=== PATIENT | male | born 1975 | race Caucasian/White ===

== ENCOUNTER 2016-09-28 19:44 | Emergency (ER) | payer OTHER ==
[2016-09-28 23:34] VITALS: BP 138/76
--- NOTE | 2016-09-29 00:30 | ED ---
Jose Jeff Karl, scribed for Raphael Burt MD on 09/28/16 at 2020 . Altered Mental Status - HPI Summary HPI Summary: Pt is a 41 y/o male BIBA that presents to the ED c/o an altered mental status. Pt reported that he "didn't feel right" earlier and felt like he was "about to pass out and drop to the ground." Pt stated he "doesn't feel right, a little lightheaded." Pt also reported that he did not eat anything all day and has been drinking since this morning. Per nursing note, "pt arrives via EMS with complaint of knee pain, for ems, the original complaint was missing the bus to [place], maybe a seizure coming on, maybe chest pain developing, and then left knee pain at a 6/10." Hx: alcohol abuse. - History Of Current Complaint Chief Complaint: EDGeneral Stated Complaint: KNEE PAIN Time Seen by Provider: 09/28/16 20:07 Hx Obtained From: Patient, EMS Onset/Duration: Still Present, Gradually Timing: Constant Aggravating Factor(s): Nothing Alleviating Factor(s): Nothing Associated Signs And Symptoms: Positive: Dizziness - lightheadedness Related History: Seizure - Allergies/Home Medications Allergies/Adverse Reactions: Allergies Allergy/AdvReac Type Severity Reaction Status Date / Time No Known Allergies Allergy Verified 06/13/16 18:48 PMH/Surg Hx/FS Hx/Imm Hx Endocrine/Hematology History: Reports: Hx Anticoagulant Therapy - Xarelto 20mg daily Denies: Hx Diabetes, Hx Thyroid Disease Cardiovascular History: Reports: Hx Hypertension Denies: Hx Pacemaker/ICD Respiratory History: Denies: Hx Asthma, Hx Chronic Obstructive Pulmonary Disease (COPD) History: Denies: Hx Renal Disease Neurological History: Reports: Hx Seizures - not taking med "I can't afford them " Denies: Hx Dementia Psychiatric History: Reports: Hx of Violent Episodes Against Others, Hx Substance Abuse - alcoholism Denies: Hx Eating Disorder - Surgical History Surgery Procedure, Year, and Place: knee surgery as a child Infectious Disease History: No Infectious Disease History: Denies: Hx Hepatitis, Hx Human Immunodeficiency Virus (HIV), Hx of Known/ Suspected MRSA, Hx Known/Suspected VRSA, History Other Infectious Disease, Traveled Outside the [place] in Last 30 Days - Family History Known Family History: Positive: Diabetes, Other - alcohol abuse - father - Social History Alcohol Use: Daily Alcohol Amount: 5-6 24oz beers daily Substance Use Type: Reports: None Hx Tobacco Use: Yes Smoking Status (MU): Former Smoker Review of Systems Constitutional: Negative Eyes: Negative ENT: Negative Cardiovascular: Negative Respiratory: Negative Gastrointestinal: Negative Genitourinary: Negative Positive: Arthralgia - left knee pain Skin: Negative Neurological: Other - lightheadedness Psychological: Normal All Other Systems Reviewed And Are Negative: Yes Physical Exam Triage Information Reviewed: Yes Vital Signs On Initial Exam: Initial Vitals Temp Pulse Resp BP Pulse Ox 98.0 F 75 18 109/69 95 09/28/16 20:04 09/28/16 20:04 09/28/16 20:04 09/28/16 20:04 09/28/16 20:04 Vital Signs Reviewed: Yes Appearance: Positive: Well-Appearing, No Pain Distress Skin: Positive: Warm, Skin Color Reflects Adequate Perfusion, Dry Head/Face: Positive: Normal Head/Face Inspection Eyes: Positive: Normal ENT: Positive: Normal ENT inspection Neck: Positive: Supple, Nontender Respiratory/Lung Sounds: Positive: Clear to Auscultation, Breath Sounds Present Cardiovascular: Positive: RRR Abdomen Description: Positive: Nontender, Soft Bowel Sounds: Positive: Present Musculoskeletal: Positive: Normal Neurological: Positive: Normal Psychiatric: Positive: Other - EtOH intoxication Diagnostics - Vital Signs Vital Signs Temp Pulse Resp BP Pulse Ox 09/28/16 20:04 98.0 F 75 18 109/69 95 - Laboratory Lab Statement: Any lab studies that have been ordered have been reviewed, and results considered in the medical decision making process. Altered Mental Statu Course/Dx - Course Course Of Treatment: Mr. Tran admitted to drinking ETOH all day without eayting and feeling dizzy and lightheaded. He had a couple sandwiches here and rested and felt much improved. He hasw presented this way before. - Diagnoses Discharge Diagnoses: Alcohol intoxication Discharge - Discharge Plan Condition: Stable Disposition: HOME Patient Education Materials: Alcohol Intoxication (ED), Abuse of Alcohol (ED) Referrals: Cirilo Barton MD [Primary Care Provider] - Additional Instructions: Please follow up with your primary care provider. Return to the emergency department for changing or worsening symptoms. The documentation as recorded by the Jose campbell Karl accurately reflects the service I personally performed and the decisions made by me, Raphael Burt MD.
== END 2016-09-28 23:33 | disposition home or self-care (01) ==
LOC: ED 19:44
DX: M25.562 Pain in left knee (principal); Z87.891 Personal history of nicotine dependence; R42 Dizziness and giddiness; F10.129 Alcohol abuse with intoxication, unspecified
CPT/HCPCS: 99281

== ENCOUNTER 2016-10-13 13:11 | Emergency (ER) | payer OTHER ==
[2016-10-13] MEDS ORDERED: Aspirin Low Dose CHEW TAB* 81 MG PO ONE (13:32)
--- NOTE | 2016-10-13 13:59 | RAD ---
HISTORY: Chest pain COMPARISONS: June 07, 2013 VIEWS:1: Single frontal portable view of the chest at 1:45 PM FINDINGS: LINES AND TUBES: None. CARDIOMEDIASTINAL SILHOUETTE: The cardiomediastinal silhouette is normal for portable technique. PLEURA: The costophrenic angles are sharp. No pleural abnormalities are noted. LUNG PARENCHYMA: The lungs are clear. ABDOMEN: The upper abdomen is clear. There is no subphrenic gas. BONES AND SOFT TISSUES: No bone or soft tissue abnormalities are noted. IMPRESSION: NO ACTIVE CARDIOPULMONARY DISEASE.
[2016-10-13 14:02] LABS: Hematocrit 45 % (42-52); Hemoglobin 15.1 g/dl (14.0-18.0); Mean Corpuscular HGB Conc 34 g/dl (31-36); Mean Corpuscular Hemoglobin 31 pg (27-31); Mean Corpuscular Volume 92 fL (80-94); Mean Platelet Volume 8 um3 (7.4-10.4); Red Blood Count 4.88 10^6/ul (4.0-5.4); Red Cell Distribution Width 13 % (10.5-15); White Blood Count 6.2 10^3/ul (3.5-10.8)
[2016-10-13 14:18] LABS: ALT 48 U/L (7-52); Albumin 3.8 g/dL (3.2-5.2); Alkaline Phosphatase 55 U/L (34-104); BUN/Creatinine Ratio 13.2 (8-20); Blood Urea Nitrogen 7 mg/dL (6-24); CO2 Carbon Dioxide 25 mmol/L (22-32); Calcium 8.4 mg/dL (8.6-10.3); Chloride 106 mmol/L (101-111); Creatine Kinase 141 U/L (10-223); EGFR African American 218.2 (>60); EGFR Non-African American 169.7 (>60); Globulin 3.1 g/dL (2-4); Glucose 105 mg/dL (70-100); Sodium 138 mmol/L (133-145); Total Protein 6.9 g/dL (6.4-8.9)
[2016-10-13 14:21] LABS: AST 48 U/L (13-39); Anion Gap 7 mmol/L (2-11); Potassium 3.5 mmol/L (3.5-5.0)
[2016-10-13 14:22] LABS: Troponin I 0.01 ng/mL (<0.04)
[2016-10-13 14:27] LABS: Alcohol < 10 mg/dL (<10)
[2016-10-13 14:37] LABS: TSH (Thyroid Stimulating Horm) 0.27 mcIU/mL (0.34-5.60)
[2016-10-13] MEDS ORDERED: Famotidine IV* 10 MG/ML 2 ML (20 mg) IV SLOW PU ONE (15:22)
[2016-10-13] MEDS ORDERED: Thiamine IV* 100 MG, Folic Acid IV* 1 MG, Multiple Vitamin IV ADULT* 10 ML in NS 0.9% 1... IV ONE (15:23)
--- NOTE | 2016-10-13 17:11 | ED ---
Berny Jeff Billy, scribed for Kingston Lema MD on 10/13/16 at 1501 . HPI Chest Pain - HPI Summary HPI Summary: Patient is a 41 year-old male coming to [facility] presenting with constant lower sternal and epigastric pain starting at 1130 today. Patient was at rest during onset. He describes "tightness," severity 6/10. Positive dizziness and SOB when he stood up. Denies any nausea or vomiting. Patient is a heavy daily drinker. - History of Current Complaint Chief Complaint: EDChestPainROMI Time Seen by Provider: 10/13/16 13:32 Hx Obtained From: Patient Onset/Duration: Started Hours Ago, Still Present Time of Onset: 11:30 Timing: Constant Initial Severity: Moderate Current Severity: Moderate Pain Intensity: 6 Pain Scale Used: 0-10 Numeric Chest Pain Location: Discrete at: - epigastric, Lower Sternal Character: Tightness Aggravating Factor(s): Exertion - will feel dizzy/SOB Alleviating Factor(s): Nothing Associated Signs and Symptoms: Positive: Dizziness, Shortness of Breath - Additional Pertinent History Primary Care Physician: Dr. Barton at [facility] - Allergy/Home Medications Allergies/Adverse Reactions: Allergies Allergy/AdvReac Type Severity Reaction Status Date / Time No Known Allergies Allergy Verified 10/13/16 14:42 PMH/Surg Hx/FS Hx/Imm Hx Endocrine/Hematology History: Reports: Hx Anticoagulant Therapy - Xarelto 20mg daily Denies: Hx Diabetes, Hx Thyroid Disease Cardiovascular History: Reports: Hx Hypertension Denies: Hx Pacemaker/ICD Respiratory History: Denies: Hx Asthma, Hx Chronic Obstructive Pulmonary Disease (COPD) History: Denies: Hx Renal Disease Neurological History: Reports: Hx Seizures - not taking med "I can't afford them " Denies: Hx Dementia Psychiatric History: Reports: Hx of Violent Episodes Against Others, Hx Substance Abuse - alcoholism Denies: Hx Eating Disorder - Surgical History Surgery Procedure, Year, and Place: knee surgery as a child Infectious Disease History: No Infectious Disease History: Denies: Hx Hepatitis, Hx Human Immunodeficiency Virus (HIV), Hx of Known/ Suspected MRSA, Hx Known/Suspected VRSA, History Other Infectious Disease, Traveled Outside the [place] in Last 30 Days - Family History Known Family History: Positive: Diabetes, Other - alcohol abuse - father - Social History Alcohol Use: Daily Alcohol Amount: 5-6 24oz beers daily Substance Use Type: Reports: None Hx Tobacco Use: Yes Smoking Status (MU): Former Smoker Review of Systems Positive: Chest Pain Positive: Shortness Of Breath Negative: Vomiting, Nausea Neurological: Other - dizziness All Other Systems Reviewed And Are Negative: Yes Physical Exam - Summary Physical Exam Summary: VITAL SIGNS: Reviewed. GENERAL: Patient is an obese male who is lying comfortable in the stretcher. Patient is not in any acute respiratory distress. HEAD AND FACE: No signs of trauma. No ecchymosis, hematomas or skull depressions. No sinus tenderness. EYES: PERRLA, EOMI x 2, No injected conjunctiva, no nystagmus. EARS: Hearing grossly intact. Ear canals and tympanic membranes are within normal limits. MOUTH: Oropharynx within normal limits. NECK: Supple, trachea is midline, no adenopathy, no JVD, no carotid bruit, no c- spine tenderness, neck with full ROM. CHEST: Symmetric, no tenderness at palpation LUNGS: Clear to auscultation bilaterally. No wheezing or crackles. CVS: Regular rate and rhythm, S1 and S2 present, no murmurs or gallops appreciated. ABDOMEN: Soft, non-tender. No signs of distention. No rebound no guarding, and no masses palpated. Bowel sounds are normal. EXTREMITIES: FROM in all major joints, no edema, no cyanosis or clubbing. NEURO: Alert and oriented x 3. No acute neurological deficits. Speech is normal and follows commands. SKIN: Dry and warm Triage Information Reviewed: Yes Vital Signs On Initial Exam: Initial Vitals Temp Pulse Resp BP Pulse Ox 98.8 F 94 18 145/79 98 10/13/16 13:25 10/13/16 13:25 10/13/16 13:25 10/13/16 13:25 10/13/16 13:25 Vital Signs Reviewed: Yes Diagnostics - Vital Signs Vital Signs Temp Pulse Resp BP Pulse Ox 10/13/16 13:25 98.8 F 94 18 145/79 98 - Laboratory Lab Results: Lab Results 10/13/16 10/13/16 10/13/16 Range/Units 13:45 13:45 13:45 WBC 6.2 (3.5-10.8) 10^3/ul RBC 4.88 (4.0-5.4) 10^6/ul Hgb 15.1 (14.0-18.0) g/dl Hct 45 (42-52) % MCV 92 (80-94) fL MCH 31 (27-31) pg MCHC 34 (31-36) g/dl RDW 13 (10.5-15) % Plt Count 145 L (150-450) 10^3/ul MPV 8 (7.4-10.4) um3 Neut % (Auto) 79.1 (38-83) % Lymph % (Auto) 12.4 L (25-47) % [place] % (Auto) 7.6 (1-9) % Eos % (Auto) 0.5 (0-6) % Baso % (Auto) 0.4 (0-2) % Absolute Neuts (auto) 4.9 (1.5-7.7) 10^3/ul Absolute Lymphs (auto) 0.8 L (1.0-4.8) 10^3/ul Absolute Monos (auto) 0.5 (0-0.8) 10^3/ul Absolute Eos (auto) 0 (0-0.6) 10^3/ul Absolute Basos (auto) 0 (0-0.2) 10^3/ul Absolute Nucleated RBC 0 10^3/ul Nucleated RBC % 0 Sodium 138 (133-145) mmol/L Potassium 3.5 (3.5-5.0) mmol/L Chloride 106 (101-111) mmol/L Carbon Dioxide 25 (22-32) mmol/L Anion Gap 7 (2-11) mmol/L BUN 7 (6-24) mg/dL Creatinine 0.53 L (0.67-1.17) mg/dL Est GFR ( Amer) 218.2 (>60) Est GFR (Non-Af Amer) 169.7 (>60) BUN/Creatinine Ratio 13.2 (8-20) Glucose 105 H (70-100) mg/dL Lactic Acid 0.9 (0.5-2.0) mmol/L Calcium 8.4 L (8.6-10.3) mg/dL Magnesium 2.0 (1.9-2.7) mg/dL Total Bilirubin 0.70 (0.2-1.0) mg/dL AST 48 H (13-39) U/L ALT 48 (7-52) U/L Alkaline Phosphatase 55 (34-104) U/L Total Creatine Kinase 141 (10-223) U/L CK-MB (CK-2) 2.2 (0.6-6.3) ng/mL Troponin I 0.01 (<0.04) ng/mL B-Natriuretic Peptide ( - 100) pg/mL Total Protein 6.9 (6.4-8.9) g/dL Albumin 3.8 (3.2-5.2) g/dL Globulin 3.1 (2-4) g/dL Albumin/Globulin Ratio 1.2 (1-3) TSH 0.27 L (0.34-5.60) mcIU/mL Serum Alcohol < 10 (<10) mg/dL 10/13/16 Range/Units 13:45 WBC (3.5-10.8) 10^3/ul RBC (4.0-5.4) 10^6/ul Hgb (14.0-18.0) g/dl Hct (42-52) % MCV (80-94) fL MCH (27-31) pg MCHC (31-36) g/dl RDW (10.5-15) % Plt Count (150-450) 10^3/ul MPV (7.4-10.4) um3 Neut % (Auto) (38-83) % Lymph % (Auto) (25-47) % [place] % (Auto) (1-9) % Eos % (Auto) (0-6) % Baso % (Auto) (0-2) % Absolute Neuts (auto) (1.5-7.7) 10^3/ul Absolute Lymphs (auto) (1.0-4.8) 10^3/ul Absolute Monos (auto) (0-0.8) 10^3/ul Absolute Eos (auto) (0-0.6) 10^3/ul Absolute Basos (auto) (0-0.2) 10^3/ul Absolute Nucleated RBC 10^3/ul Nucleated RBC % Sodium (133-145) mmol/L Potassium (3.5-5.0) mmol/L Chloride (101-111) mmol/L Carbon Dioxide (22-32) mmol/L Anion Gap (2-11) mmol/L BUN (6-24) mg/dL Creatinine (0.67-1.17) mg/dL Est GFR ( Amer) (>60) Est GFR (Non-Af Amer) (>60) BUN/Creatinine Ratio (8-20) Glucose (70-100) mg/dL Lactic Acid (0.5-2.0) mmol/L Calcium (8.6-10.3) mg/dL Magnesium (1.9-2.7) mg/dL Total Bilirubin (0.2-1.0) mg/dL AST (13-39) U/L ALT (7-52) U/L Alkaline Phosphatase (34-104) U/L Total Creatine Kinase (10-223) U/L CK-MB (CK-2) (0.6-6.3) ng/mL Troponin I (<0.04) ng/mL B-Natriuretic Peptide 29 ( - 100) pg/mL Total Protein (6.4-8.9) g/dL Albumin (3.2-5.2) g/dL Globulin (2-4) g/dL Albumin/Globulin Ratio (1-3) TSH (0.34-5.60) mcIU/mL Serum Alcohol (<10) mg/dL Result Diagrams: 10/13/16 13:45 10/13/16 13:45 Lab Statement: Any lab studies that have been ordered have been reviewed, and results considered in the medical decision making process. - Radiology CXR Xray Interpretation: No Acute Changes Radiology Interpretation Completed By: Radiologist - EKG 1329 EKG Interpretation: NSR 88 bpm, no ST elevation Chest Pain Course/Dx - Course Assessment/Plan: Patient is a 41 year-old male coming to [facility] presenting with constant lower sternal and epigastric pain starting at 1130 today. Patient was at rest during onset. He describes "tightness," severity 6/10. Positive dizziness and SOB when he stood up. Denies any nausea or vomiting. Patient is a heavy daily drinker. Bloodwork WNL. Trop #1 is 0.01, and trop #2 after 4 hours is 0.01. CXR shows no acute pathology. EKG shows NSR [address] elevation. EKG is similar to previous EKG done on 09/08/16. In the ER course , pt was given ASA which did not help his pain. Then, he was given Pepcid and his symptoms improved. I have a very low suspicion for acute coronary sx since he has no comorbidities, so he will be discharged home to follow up with PCP. A&Ox3 , hemodynamically stable. - Chest Pain Differential Diagnosis/HQI/PQRI: Acute TX, ACS, Angina, Chest Wall, GI Disease, Lower Respiratory Infection - Diagnoses Provider Diagnoses: Chest pain, Epigastric pain Discharge - Discharge Plan Condition: Stable Disposition: HOME Patient Education Materials: Chest Pain (ED), Epigastric Pain (ED) Referrals: Cirilo Barton MD [Primary Care Provider] - The documentation as recorded by the Berny campbell Billy accurately reflects the service I personally performed and the decisions made by me, Kingston Lema MD.
[2016-10-13 17:35] VITALS: BP 144/76
== END 2016-10-13 17:40 | disposition home or self-care (01) ==
LOC: ED 13:11
DX: R07.9 Chest pain, unspecified (principal); R10.13 Epigastric pain; R42 Dizziness and giddiness; R06.02 Shortness of breath; Z87.891 Personal history of nicotine dependence
CPT/HCPCS: 36415; 71010; 80053; 80320; 82550; 82553; 83605; 83735; 83880; 84443; 84484; 85025; 85610; 85730; 93005; 96365; 99283; A9270-GY; G0480; J3411

== ENCOUNTER 2016-10-16 11:42 | Emergency (ER) | payer OTHER ==
[2016-10-16] MEDS ORDERED: Famotidine IV* 10 MG/ML 2 ML (20 mg) IV ONE (12:06)
[2016-10-16] MEDS ORDERED: NS 0.9% 1000 ML* 2,000 ML IV ONE (12:06)
[2016-10-16 12:14] LABS: Hematocrit 46 % (42-52); Hemoglobin 15.6 g/dl (14.0-18.0); Mean Corpuscular HGB Conc 34 g/dl (31-36); Mean Corpuscular Hemoglobin 31 pg (27-31); Mean Corpuscular Volume 91 fL (80-94); Mean Platelet Volume 8 um3 (7.4-10.4); Red Blood Count 4.99 10^6/ul (4.0-5.4); Red Cell Distribution Width 13 % (10.5-15); White Blood Count 8.3 10^3/ul (3.5-10.8)
[2016-10-16 12:25] LABS: Albumin 4.1 g/dL (3.2-5.2); BUN/Creatinine Ratio 10.7 (8-20); EGFR African American 204.8 (>60); EGFR Non-African American 159.2 (>60); Globulin 3.2 g/dL (2-4); Total Bilirubin 0.5 mg/dL (0.2-1.0); Total Protein 7.3 g/dL (6.4-8.9)
[2016-10-16 12:27] LABS: Troponin I 0.01 ng/mL (<0.04)
--- NOTE | 2016-10-16 12:31 | RAD ---
Indication: Chest pain. History of hypertension and tobacco use. Comparison: October 31, 2016 Technique: Upright AP 1215 hours Report: Accounting for superimposed soft tissues with large body habitus the lungs and pleural spaces are clear. Negative for pneumothorax. Cardiomegaly appears new compared with the recent prior exam. Unremarkable central pulmonary vasculature and mediastinal contours. IMPRESSION: Suggestion of cardiomegaly new compared with the recent exam of October 13, 2016. Correlate with clinical presentation and consider PA chest radiograph for further assessment.
[2016-10-16 12:39] LABS: TSH (Thyroid Stimulating Horm) 0.89 mcIU/mL (0.34-5.60)
--- NOTE | 2016-10-16 12:59 | RAD ---
INDICATION: RIGHT lower extremity pain and edema. COMPARISON: None. TECHNIQUE: Naidu scale, color Doppler, and spectral analysis of the deep veins of the RIGHT lower extremity. Vessel compression, phasicity, and augmentation assessed. REPORT: The RIGHT common femoral, great saphenous, profunda femoral, femoral, popliteal, and posterior tibial veins appear patent. While conspicuity of the peroneal veins is limited flow is demonstrated in the peroneal veins on color Doppler. Patency of the contralateral common femoral vein documented. IMPRESSION: 1. No evidence for above-knee RIGHT lower extremity DVT. 2. Patent paired RIGHT posterior tibial veins. 3. Limited assessment of the paired RIGHT peroneal veins due to poor conspicuity without gross evidence for thrombosis.
[2016-10-16 13:58] LABS: Potassium 3.8 mmol/L (3.5-5.0)
--- NOTE | 2016-10-16 14:47 | ED ---
Thomas Jeff Matthew, scribed for Bryson Reynolds MD on 10/16/16 at 1209 . HPI Chest Pain - HPI Summary HPI Summary: A 40 y/o male presents to the ED by EMS with sudden mid sternal chest pain since 10:30. The pain is rated 6/10 in severity. The pain was described as tightness, and radiated into the left arm. The patient was ambulating when the symptoms began. The patient continues to have mild discomfort. Associated symptoms include SOB and diaphoresis. The patient denies nausea and vomiting. The pain is worsen with movement. He stats that when he leans forwards or backwards his chest "pops". No Hx of a stress test. PMHx includes PE and DVT. The patient is not on a blood thinner and hasn't been on the medication for a couple of weeks. He took aspirin in the ambulance [facility]. The patient admits to drinking this morning. - History of Current Complaint Chief Complaint: EDChestPainROMI Time Seen by Provider: 10/16/16 11:46 Hx Obtained From: Patient Onset/Duration: Started Hours Ago, Atraumatic, Still Present Time of Onset: 10:30 Timing: Constant Initial Severity: Moderate Current Severity: Mild Pain Intensity: 6 Pain Scale Used: 0-10 Numeric Chest Pain Location: Mid Sternal Chest Pain Radiates: Yes Chest Pain Radiates To:: Arm - LT Character: Tightness Aggravating Factor(s): Movement Alleviating Factor(s): Nothing Associated Signs and Symptoms: Positive: Chest Pain, Shortness of Breath, Diaphoresis, Calf Pain/Swelling - RT. Negative: Nausea, Vomiting - Additional Pertinent History Primary Care Physician: Dr. Barton at [facility] - Allergy/Home Medications Allergies/Adverse Reactions: Allergies Allergy/AdvReac Type Severity Reaction Status Date / Time No Known Allergies Allergy Verified 10/13/16 14:42 PMH/Surg Hx/FS Hx/Imm Hx Endocrine/Hematology History: Reports: Hx Anticoagulant Therapy - Xarelto 20mg daily Denies: Hx Diabetes, Hx Thyroid Disease Cardiovascular History: Reports: Hx Hypertension Denies: Hx Pacemaker/ICD Respiratory History: Denies: Hx Asthma, Hx Chronic Obstructive Pulmonary Disease (COPD) History: Denies: Hx Renal Disease Neurological History: Reports: Hx Seizures - not taking med "I can't afford them " Denies: Hx Dementia Psychiatric History: Reports: Hx of Violent Episodes Against Others, Hx Substance Abuse - alcoholism Denies: Hx Eating Disorder - Surgical History Surgery Procedure, Year, and Place: knee surgery as a child Infectious Disease History: No Infectious Disease History: Denies: Hx Hepatitis, Hx Human Immunodeficiency Virus (HIV), Hx of Known/ Suspected MRSA, Hx Known/Suspected VRSA, History Other Infectious Disease, Traveled Outside the [place] in Last 30 Days - Family History Known Family History: Positive: Diabetes, Other - alcohol abuse - father - Social History Alcohol Use: Daily Alcohol Amount: 5-6 24oz beers daily Substance Use Type: Reports: None Hx Tobacco Use: Yes Smoking Status (MU): Former Smoker Review of Systems Positive: Skin Diaphoresis Eyes: Negative Positive: Nasal Discharge Positive: Chest Pain - mid sternal Positive: Shortness Of Breath Negative: Vomiting, Nausea Genitourinary: Negative Positive: Myalgia - right calf pain , Edema - right calf swelling Skin: Negative Neurological: Negative Psychological: Normal All Other Systems Reviewed And Are Negative: Yes Physical Exam - Summary Physical Exam Summary: The patient is obese in no acute distress and in no acute pain. The skin is warm and dry and skin color reflects adequate perfusion. HEENT: The head is normocephalic and atraumatic. The pupils are equal and reactive. The conjunctivae are clear and without drainage. Nares are patent and without drainage. Mouth reveals moist mucous membranes and the throat is without erythema and exudate. The external ears are intact. The ear canals are patent and without drainage. The tympanic membranes are intact. Neck is supple with full range of motion and non-tender. There are no carotid bruits. There is no neck vein distension. Respiratory: Chest has reproducible discomfort. Lungs are clear to auscultation and breath sounds are symmetrical and equal. Cardiovascular: Heart is regular rate and rhythm. There is no murmur or rub auscultated. Pulses are symmetrical and equal. Abdomen: The abdomen is soft and non-tender. There are normal bowel sounds heard in all four quadrants and there is no organomegaly palpated. Musculoskeletal: There is no back pain noted. Extremities are non-tender with full range of motion. There is good capillary refill. The patient has swelling and tenderness of the right calf. Neurological: Patient is alert and oriented to person, place and time. The patient has symmetrical motor strength in all four extremities. Cranial nerves are grossly intact. Deep tendon reflexes are symmetrical and equal in all four extremities. Psychiatric: The patient has an appropriate affect and does not exhibit any anxiety or depression. Triage Information Reviewed: Yes Vital Signs On Initial Exam: Initial Vitals Temp Pulse Resp BP Pulse Ox 98.5 F 87 18 111/62 94 10/16/16 11:43 10/16/16 11:43 10/16/16 11:43 10/16/16 11:43 10/16/16 11:43 Vital Signs Reviewed: Yes Diagnostics - Vital Signs Vital Signs Temp Pulse Resp BP Pulse Ox 10/16/16 11:43 98.5 F 87 18 111/62 94 - Laboratory Lab Results: Lab Results 10/16/16 10/16/16 10/16/16 Range/Units 11:45 11:45 11:45 WBC 8.3 (3.5-10.8) 10^3/ul RBC 4.99 (4.0-5.4) 10^6/ul Hgb 15.6 (14.0-18.0) g/dl Hct 46 (42-52) % MCV 91 (80-94) fL MCH 31 (27-31) pg MCHC 34 (31-36) g/dl RDW 13 (10.5-15) % Plt Count 176 (150-450) 10^3/ul MPV 8 (7.4-10.4) um3 Neut % (Auto) 70.8 (38-83) % Lymph % (Auto) 18.0 L (25-47) % [place] % (Auto) 8.5 (1-9) % Eos % (Auto) 1.6 (0-6) % Baso % (Auto) 1.1 (0-2) % Absolute Neuts (auto) 5.9 (1.5-7.7) 10^3/ul Absolute Lymphs (auto) 1.5 (1.0-4.8) 10^3/ul Absolute Monos (auto) 0.7 (0-0.8) 10^3/ul Absolute Eos (auto) 0.1 (0-0.6) 10^3/ul Absolute Basos (auto) 0.1 (0-0.2) 10^3/ul Absolute Nucleated RBC 0.01 10^3/ul Nucleated RBC % 0.1 INR (Anticoag Therapy) 0.92 (0.89-1.11) Sodium 134 (133-145) mmol/L Potassium 3.8 (3.5-5.0) mmol/L Chloride 104 (101-111) mmol/L Carbon Dioxide 21 L (22-32) mmol/L Anion Gap 9 (2-11) mmol/L BUN 6 (6-24) mg/dL Creatinine 0.56 L (0.67-1.17) mg/dL Est GFR ( Amer) 204.8 (>60) Est GFR (Non-Af Amer) 159.2 (>60) BUN/Creatinine Ratio 10.7 (8-20) Glucose 113 H (70-100) mg/dL Lactic Acid (0.5-2.0) mmol/L Calcium 9.0 (8.6-10.3) mg/dL Magnesium 2.0 (1.9-2.7) mg/dL Total Bilirubin 0.50 (0.2-1.0) mg/dL AST 37 (13-39) U/L ALT 39 (7-52) U/L Alkaline Phosphatase 65 (34-104) U/L Troponin I 0.01 (<0.04) ng/mL B-Natriuretic Peptide ( - 100) pg/mL Total Protein 7.3 (6.4-8.9) g/dL Albumin 4.1 (3.2-5.2) g/dL Globulin 3.2 (2-4) g/dL Albumin/Globulin Ratio 1.3 (1-3) TSH 0.89 (0.34-5.60) mcIU/mL Serum Alcohol 101 H (<10) mg/dL 10/16/16 10/16/16 10/16/16 Range/Units 11:45 11:45 13:45 WBC (3.5-10.8) 10^3/ul RBC (4.0-5.4) 10^6/ul Hgb (14.0-18.0) g/dl Hct (42-52) % MCV (80-94) fL MCH (27-31) pg MCHC (31-36) g/dl RDW (10.5-15) % Plt Count (150-450) 10^3/ul MPV (7.4-10.4) um3 Neut % (Auto) (38-83) % Lymph % (Auto) (25-47) % [place] % (Auto) (1-9) % Eos % (Auto) (0-6) % Baso % (Auto) (0-2) % Absolute Neuts (auto) (1.5-7.7) 10^3/ul Absolute Lymphs (auto) (1.0-4.8) 10^3/ul Absolute Monos (auto) (0-0.8) 10^3/ul Absolute Eos (auto) (0-0.6) 10^3/ul Absolute Basos (auto) (0-0.2) 10^3/ul Absolute Nucleated RBC 10^3/ul Nucleated RBC % INR (Anticoag Therapy) (0.89-1.11) Sodium (133-145) mmol/L Potassium (3.5-5.0) mmol/L Chloride (101-111) mmol/L Carbon Dioxide (22-32) mmol/L Anion Gap (2-11) mmol/L BUN (6-24) mg/dL Creatinine (0.67-1.17) mg/dL Est GFR ( Amer) (>60) Est GFR (Non-Af Amer) (>60) BUN/Creatinine Ratio (8-20) Glucose (70-100) mg/dL Lactic Acid 1.3 (0.5-2.0) mmol/L Calcium (8.6-10.3) mg/dL Magnesium (1.9-2.7) mg/dL Total Bilirubin (0.2-1.0) mg/dL AST (13-39) U/L ALT (7-52) U/L Alkaline Phosphatase (34-104) U/L Troponin I 0.01 (<0.04) ng/mL B-Natriuretic Peptide 23 ( - 100) pg/mL Total Protein (6.4-8.9) g/dL Albumin (3.2-5.2) g/dL Globulin (2-4) g/dL Albumin/Globulin Ratio (1-3) TSH (0.34-5.60) mcIU/mL Serum Alcohol (<10) mg/dL Result Diagrams: 10/16/16 11:45 10/16/16 11:45 Lab Statement: Any lab studies that have been ordered have been reviewed, and results considered in the medical decision making process. - Radiology CXR Xray Interpretation: Positive (See Comments) - IMPRESSION: Suggestion of cardiomegaly new compared with the recent exam of October 13, 2016. Correlate with clinical presentation and consider PA chest radiograph for further assessment. Radiology Interpretation Completed By: Radiologist - Ultrasound No standard instances Ultrasound Interpretation: No Acute Changes - IMPRESSION: 1. No evidence for above-knee RIGHT lower extremity DVT. 2. Patent paired RIGHT posterior tibial veins. 3. Limited assessment of the paired RIGHT peroneal veins due to poor conspicuity without gross evidence for thrombosis. Ultrasound Interpretation Completed By: Radiologist - EKG 11:37 Cardiac Rate: NL - 88 bpm EKG Rhythm: Sinus Rhythm ST Segment: Non-Specific - leads V2, V3 EKG Interpretation: Poor R wave progression; Left-[place] EKG Comparison: No Significant Change - 10/13/16 13:41 Cardiac Rate: Bradycardia - 59 bpm EKG Rhythm: Sinus Bradycardia ST Segment: Non-Specific - in leads V2,V3 EKG Interpretation: Poor R wave progression; Left-[place] EKG Comparison: No Significant Change - 10/13/16 Chest Pain Course/Dx - Course Assessment/Plan: A 40 y/o male presents to the ED by EMS with sudden mid sternal chest pain since 10:30. The pain was described as tightness, and radiated into the left arm. Associated symptoms include SOB and diaphoresis. The patient denies nausea and vomiting. The patient was also seen in the ED on for similar symptoms. Labs were reviewed and the first troponin was 0.01 the second troponin was 0.01. EKG at 11:37 shows NSR at 88 bpm with non- specific ST changes in leads V2, V3, poor r wave progression, and Left-[place] with no change from 10/13/16. EKG at 13:41 shows sinus rhythm at 59 bpm with non- specific ST changes in leads V2,V3, poor r wave progression, and left-axis. US shows no evidence for right leg DVT. CXR shows suggestion of cardiomegaly new compared with the recent exam of October 13, 2016. The patient will be discharged home and follow-up with his PCP. - Chest Pain Differential Diagnosis/HQI/PQRI: Acute DE, ACS, Chest Wall, GI Disease, Other: - dvt, homelessness, acute alcoholic intoxication - Diagnoses Provider Diagnoses: Chest pain, Acute alcohol intoxication Discharge - Discharge Plan Condition: Stable Disposition: HOME Patient Education Materials: Chest Pain (ED), Alcohol Intoxication (ED) Referrals: Cirilo Barton MD [Primary Care Provider] - 2 Days Additional Instructions: Please follow-up with your primary care physician in two days. The documentation as recorded by the Thomas campbell Matthew accurately reflects the service I personally performed and the decisions made by , Bryson Reynolds MD.
[2016-10-16 15:26] VITALS: BP 118/74
== END 2016-10-16 15:27 | disposition home or self-care (01) ==
LOC: ED 11:42
DX: R07.9 Chest pain, unspecified (principal); F10.129 Alcohol abuse with intoxication, unspecified; G40.909 Epilepsy, unspecified, not intractable, without status epilepticus; Z91.14 Patient's other noncompliance with medication regimen; Z79.01 Long term (current) use of anticoagulants; Z86.718 Personal history of other venous thrombosis and embolism; Y90.5 Blood alcohol level of 100-119 mg/100 ml
CPT/HCPCS: 36415; 71010; 80053; 80320; 83605; 83735; 83880; 84443; 84484; 85025; 85610; 93005; 96374; 99283; G0480

== ENCOUNTER 2016-10-30 20:12 | Emergency (ER) | payer OTHER ==
--- NOTE | 2016-10-30 21:53 | RAD ---
HISTORY: Trauma to the right elbow COMPARISONS: None relevant VIEWS: 4, Frontal, lateral, and oblique views of the right elbow FINDINGS: BONE DENSITY: Normal. BONES: There is no acute displaced fracture. There is a small well-corticated bone fragment along the radial ulnar interval which may represent a loose body versus remote avulsion injury. JOINTS: There is no arthropathy. There is no posterior supracondylar fat pad to suggest a joint effusion. ALIGNMENT: There is no dislocation. SOFT TISSUES: Unremarkable. OTHER FINDINGS: None. IMPRESSION: NO ACUTE OSSEOUS INJURY. IF SYMPTOMS PERSIST, RECOMMEND REPEAT IMAGING.
[2016-10-30 22:45] VITALS: BP 101/66
--- NOTE | 2016-10-30 23:10 | ED ---
Upper Extremity Pain - HPI Summary HPI Summary: Patient was moving furniture today when the other person helping him dropped the furniture and it landed on his right elbow. He had immediate pain that did not improve so he came in for evaluation. He is right handed and has only been able to move the elbow "a little". He has taken Tylenol for pain. - History of Current Complaint Chief Complaint: EDExtremityUpper Stated Complaint: RT ARM INJURY Time Seen by Provider: 10/30/16 21:30 Hx Obtained From: Patient Mechanism Of Injury: Blunt Trauma Onset/Duration: Started Hours Ago, Traumatic, Still Present Timing: Constant Severity Initially: Severe Severity Currently: Moderate Pain Location: Elbow Character: Sharp, Aching, Stiffness Aggravating Factor(s): Movement Alleviating Factor(s): Nothing Associated Signs & Symptoms: Positive: Negative Related History: Dominant Hand Right - Allergies/Home Medications Allergies/Adverse Reactions: Allergies Allergy/AdvReac Type Severity Reaction Status Date / Time No Known Allergies Allergy Verified 10/13/16 14:42 PMH/Surg Hx/FS Hx/Imm Hx Endocrine/Hematology History: Reports: Hx Anticoagulant Therapy - Xarelto 20mg daily Denies: Hx Diabetes, Hx Thyroid Disease Cardiovascular History: Reports: Hx Hypertension Denies: Hx Pacemaker/ICD Respiratory History: Denies: Hx Asthma, Hx Chronic Obstructive Pulmonary Disease (COPD) History: Denies: Hx Renal Disease Neurological History: Reports: Hx Seizures - not taking med "I can't afford them " Denies: Hx Dementia Psychiatric History: Reports: Hx of Violent Episodes Against Others, Hx Substance Abuse - alcoholism Denies: Hx Eating Disorder - Surgical History Surgery Procedure, Year, and Place: knee surgery as a child Infectious Disease History: No Infectious Disease History: Denies: Hx Hepatitis, Hx Human Immunodeficiency Virus (HIV), Hx of Known/ Suspected MRSA, Hx Known/Suspected VRSA, History Other Infectious Disease, Traveled Outside the [place] in Last 30 Days - Family History Known Family History: Positive: Diabetes, Other - alcohol abuse - father - Social History Occupation: Unemployed Lives: [facility] Alcohol Use: Daily Alcohol Amount: 5-6 24oz beers daily Substance Use Type: Reports: None Hx Tobacco Use: Yes Smoking Status (MU): Heavy Every Day Tobacco Smoker Cessation Counseling: Patient Advised to Stop Review of Systems Positive: Myalgia, Decreased ROM. Negative: Edema Negative: Bruising Negative: Weakness, Paresthesia, Numbness All Other Systems Reviewed And Are Negative: Yes Physical Exam Triage Information Reviewed: Yes Vital Signs On Initial Exam: Initial Vitals Temp Pulse Resp BP Pulse Ox 98.2 F 80 16 106/68 96 10/30/16 20:16 10/30/16 20:16 10/30/16 20:16 10/30/16 20:16 10/30/16 20:16 Vital Signs Reviewed: Yes Appearance: Positive: Well-Appearing, Pain Distress, Obese Skin: Positive: Warm, Skin Color Reflects Adequate Perfusion, Dry, Soft Head/Face: Positive: Normal Head/Face Inspection Eyes: Positive: EOMI, ROX, Conjunctiva Clear ENT: Positive: Hearing grossly normal Respiratory/Lung Sounds: Positive: Breath Sounds Present Cardiovascular: Positive: RRR Musculoskeletal: Positive: Strength/ROM Intact - FROM right elbow with full pronation/supination, Pain @ - TTP medial condyle. Negative: Edema Right Neurological: Positive: Sensory/Motor Intact, Alert, Oriented to Person Place, Time, NV Bundle Intact Distally Psychiatric: Positive: Affect/Mood Appropriate AVPU Assessment: Alert Diagnostics - Vital Signs Vital Signs Temp Pulse Resp BP Pulse Ox 10/30/16 22:47 98.6 F 82 16 101/66 10/30/16 22:44 98.6 F 82 16 101/66 94 10/30/16 20:16 98.2 F 80 16 106/68 96 - Laboratory Lab Statement: Any lab studies that have been ordered have been reviewed, and results considered in the medical decision making process. - Radiology No standard instances Xray Interpretation: No Acute Changes Radiology Interpretation Completed By: Radiologist Course/Dx - Diagnoses Differential Diagnosis/HQI/PQRI: Positive: Arthritis, Bursitis, Contusion, Fracture (Closed), Hematoma, Strain, Sprain Provider Diagnoses: Contusion of right elbow Discharge - Discharge Plan Condition: Stable Disposition: HOME Patient Education Materials: Arm Pain (ED) Referrals: Cirilo Barton MD [Primary Care Provider] - Additional Instructions: Please wear your sling until you pain improves. Use Tylenol and ice to help with pain and swelling. Follow-up with your regular doctor if your symptoms persist.
== END 2016-10-30 22:47 | disposition home or self-care (01) ==
LOC: ED 20:12
DX: S50.01XA Contusion of right elbow, initial encounter (principal); W22.8XXA Striking against or struck by other objects, initial encounter; Y93.9 Activity, unspecified; Y92.9 Unspecified place or not applicable; Y93.89 Activity, other specified; F17.210 Nicotine dependence, cigarettes, uncomplicated
CPT/HCPCS: 99282

== ENCOUNTER 2016-11-10 03:11 | Emergency (ER) | payer SELFPAY ==
--- NOTE | 2016-11-10 03:43 | ED ---
Gus Jeff Benjamin, scribed for Kenneth Peraza MD on 11/10/16 at 0325 . Shortness of Breath - HPI Summary HPI Summary: 41yo male c/o sudden SOB. Pt also admits having 3-4 drinks today. - History of Current Complaint Chief Complaint: EDShortnessOfBreath Hx Obtained From: Patient Onset/Duration: Sudden Onset, Lasting Hours, Still Present Current Severity: Mild Dyspnea At: Rest Aggrevating Factors: Nothing Alleviating Factors: Nothing Associated Signs & Symptoms: Negative - Allergy/Home Medications Allergies/Adverse Reactions: Allergies Allergy/AdvReac Type Severity Reaction Status Date / Time No Known Allergies Allergy Verified 10/13/16 14:42 PMH/Surg Hx/FS Hx/Imm Hx Endocrine/Hematology History: Reports: Hx Anticoagulant Therapy - Xarelto 20mg daily Denies: Hx Diabetes, Hx Thyroid Disease Cardiovascular History: Reports: Hx Hypertension Denies: Hx Pacemaker/ICD Respiratory History: Denies: Hx Asthma, Hx Chronic Obstructive Pulmonary Disease (COPD) History: Denies: Hx Renal Disease Neurological History: Reports: Hx Seizures - not taking med "I can't afford them " Denies: Hx Dementia Psychiatric History: Reports: Hx of Violent Episodes Against Others, Hx Substance Abuse - alcoholism Denies: Hx Eating Disorder - Surgical History Surgery Procedure, Year, and Place: knee surgery as a child Infectious Disease History: No Infectious Disease History: Denies: Hx Hepatitis, Hx Human Immunodeficiency Virus (HIV), Hx of Known/ Suspected MRSA, Hx Known/Suspected VRSA, History Other Infectious Disease, Traveled Outside the [place] in Last 30 Days - Family History Known Family History: Positive: Diabetes, Other - alcohol abuse - father - Social History Alcohol Use: Daily Alcohol Amount: 5-6 24oz beers daily Substance Use Type: Reports: None Hx Tobacco Use: Yes Smoking Status (MU): Heavy Every Day Tobacco Smoker Review of Systems Constitutional: Negative Eyes: Negative ENT: Negative Cardiovascular: Negative Positive: Shortness Of Breath Gastrointestinal: Negative Genitourinary: Negative Musculoskeletal: Negative Skin: Negative Neurological: Negative Psychological: Normal All Other Systems Reviewed And Are Negative: Yes Physical Exam Triage Information Reviewed: Yes Vital Signs On Initial Exam: Initial Vitals Temp Pulse Resp BP Pulse Ox 98.2 F 79 20 114/70 97 11/10/16 03:15 11/10/16 03:15 11/10/16 03:15 11/10/16 03:15 11/10/16 03:15 Vital Signs Reviewed: Yes Appearance: Positive: No Pain Distress, Obese Skin: Positive: Warm Head/Face: Positive: Normal Head/Face Inspection Eyes: Positive: ROX ENT: Positive: Hearing grossly normal Neck: Positive: Supple Respiratory/Lung Sounds: Positive: Clear to Auscultation, Breath Sounds Present Cardiovascular: Positive: RRR Musculoskeletal: Positive: Strength/ROM Intact Neurological: Positive: Alert, Oriented to Person Place, Time Diagnostics - Vital Signs Vital Signs Temp Pulse Resp BP Pulse Ox 11/10/16 03:15 98.2 F 79 20 114/70 97 - Laboratory Lab Statement: Any lab studies that have been ordered have been reviewed, and results considered in the medical decision making process. - Radiology CXR Xray Interpretation: No Acute Changes Radiology Interpretation Completed By: ED Physician Course/Dx - Diagnoses Provider Diagnoses: Dyspnea, Alcohol abuse with alcohol-induced mood disorder Discharge - Discharge Plan Condition: Stable Disposition: HOME Patient Education Materials: Dyspnea (ED) Referrals: Cirilo Barton MD [Primary Care Provider] - The documentation as recorded by the Gus campbell Benjamin accurately reflects the service I personally performed and the decisions made by , Kenneth Peraza MD.
[2016-11-10 05:17] VITALS: BP 108/79
--- NOTE | 2016-11-10 07:49 | RAD ---
INDICATION: Shortness of breath. COMPARISON: Comparison is made with a prior chest x-ray study from October 16, 2016. TECHNIQUE: Dual-energy PA and lateral views of the chest were obtained. FINDINGS: The heart is within normal limits in size. Mediastinal and hilar contours appear within normal limits. There are minimal linear densities at the right lung base most consistent with atelectasis. The lungs are otherwise clear. No pleural effusion is seen. IMPRESSION: NO EVIDENCE FOR ACUTE FINDING.
== END 2016-11-10 05:15 | disposition home or self-care (01) ==
LOC: ED 03:11
DX: F10.10 Alcohol abuse, uncomplicated (principal); F39 Unspecified mood [affective] disorder; R06.00 Dyspnea, unspecified
CPT/HCPCS: 71020; 99282

== ENCOUNTER 2016-11-26 22:53 | Emergency (ER) | payer SELFPAY ==
[2016-11-26 23:31] VITALS: BP 121/63
[2016-11-26 23:36] LABS: Hematocrit 46 % (42-52); Hemoglobin 15.6 g/dl (14.0-18.0); Mean Corpuscular HGB Conc 34 g/dl (31-36); Mean Corpuscular Hemoglobin 31 pg (27-31); Mean Corpuscular Volume 91 fL (80-94); Mean Platelet Volume 7 um3 (7.4-10.4); Red Blood Count 5.02 10^6/ul (4.0-5.4); Red Cell Distribution Width 13 % (10.5-15); White Blood Count 8.6 10^3/ul (3.5-10.8)
[2016-11-26 23:40] LABS: Add Diff/Slide Review? Slide Review Added; Comments Flag Yes
[2016-11-26 23:51] LABS: ALT 26 U/L (7-52); Alkaline Phosphatase 73 U/L (34-104); BUN/Creatinine Ratio 9.8 (8-20); Blood Urea Nitrogen 6 mg/dL (6-24); CO2 Carbon Dioxide 23 mmol/L (22-32); Calcium 8.9 mg/dL (8.6-10.3); Chloride 103 mmol/L (101-111); EGFR African American 185.5 (>60); EGFR Non-African American 144.3 (>60); Globulin 3.2 g/dL (2-4); Glucose 98 mg/dL (70-100); Sodium 137 mmol/L (133-145); Total Protein 7.2 g/dL (6.4-8.9)
[2016-11-27 00:03] LABS: Acetaminophen < 15 mcg/mL; Alcohol 167 mg/dL (<10); Salicylate < 2.50 mg/dL (<30)
[2016-11-27 00:13] LABS: TSH (Thyroid Stimulating Horm) 1.47 mcIU/mL (0.34-5.60)
[2016-11-27 00:26] LABS: AST 29 U/L (13-39); Anion Gap 11 mmol/L (2-11); Potassium 3.7 mmol/L (3.5-5.0)
--- NOTE | 2016-11-27 09:37 | RAD ---
Indication: Bilateral feet burning sensation for several weeks. Swelling, infection. Comparison: No relevant prior exams available on the [facility]. Technique: AP, lateral, and oblique views of the bilateral feet Report: RIGHT foot: Normal articular alignment. Suggestion of mild soft tissue edema. No subcutaneous emphysema evident. Negative for periosteal reaction, osteolysis, or osteosclerosis. Large dorsal osteophyte at the head/neck of the talus. Accessory os tibialis externum ossicle. Mild osteoarthritis at the first metatarsal phalangeal joint. Healed fractures at the distal diaphysis metaphysis junctions of the tibia and fibula. LEFT foot: Normal articular alignment. Suggestion of mild soft tissue edema. No subcutaneous emphysema evident. Negative for periosteal reaction, osteolysis, or osteosclerosis. Mild osteophytosis at the talocrural joint and first metatarsal phalangeal joint. Negative for fracture. IMPRESSION: Mild bilateral nonfocal soft tissue swelling. No radiographic stigmata of osteomyelitis or acute traumatic injury.
--- NOTE | 2016-11-27 10:52 | CONSULT ---
Consult Consult: Mr. Tran is homeless and has been staying at the custodial at night under ' winter rules'. He came in intoxicated last night after an argument feeling suicidal. He was evaluated by [facility] and they felt he could be released as he felt better after eating, sleeping and sobering. He admits to having wet feet a lot during the recent heavy snow. He has injury to both of his feet from cold immersion and I counseled him that he has to keep his feet warm and dry and to F /U with the Physician Referral Service. He agrees to do that. I don't think that he has frostbite at this point. He says his feet 'crackle and pop' on the bottom when he walks but he is not having pain. He was D/C'd iin stable condition with a diagnosis of immersion foot, alcohol intoxication, and depression.
== END 2016-11-27 10:04 | disposition home or self-care (01) ==
LOC: ED 22:53
DX: T69.029A Immersion foot, unspecified foot, initial encounter (principal); F10.129 Alcohol abuse with intoxication, unspecified; F32.9 Major depressive disorder, single episode, unspecified; X31.XXXA Exposure to excessive natural cold, initial encounter
CPT/HCPCS: 36415; 80053; 80320; 80329; 84443; 85025; 99282; G0480

== ENCOUNTER 2016-12-06 15:56 | Emergency (ER) | payer SELFPAY ==
[2016-12-06 20:54] LABS: Hematocrit 50 % (42-52); Hemoglobin 16.7 g/dl (14.0-18.0); Mean Corpuscular HGB Conc 34 g/dl (31-36); Mean Corpuscular Hemoglobin 31 pg (27-31); Mean Corpuscular Volume 92 fL (80-94); Mean Platelet Volume 7 um3 (7.4-10.4); Red Blood Count 5.39 10^6/ul (4.0-5.4); Red Cell Distribution Width 13 % (10.5-15)
[2016-12-06 21:01] LABS: Add Diff/Slide Review? Manual Diff Added; Comments Flag Yes
[2016-12-06 21:04] LABS: Urine Bacteria Absent (Absent); Urine Bilirubin Negative (Negative); Urine Glucose Negative (Negative); Urine Nitrite Negative (Negative)
[2016-12-06 21:07] LABS: ALT 26 U/L (7-52); AST 40 U/L (13-39); Albumin 4.2 g/dL (3.2-5.2); Alkaline Phosphatase 61 U/L (34-104); Anion Gap 11 mmol/L (2-11); BUN/Creatinine Ratio 11.9 (8-20); Blood Urea Nitrogen 7 mg/dL (6-24); CO2 Carbon Dioxide 25 mmol/L (22-32); Calcium 8.8 mg/dL (8.6-10.3); Chloride 103 mmol/L (101-111); EGFR African American 192.8 (>60); EGFR Non-African American 149.9 (>60); Globulin 3.4 g/dL (2-4); Glucose 85 mg/dL (70-100); Potassium 3.6 mmol/L (3.5-5.0); Sodium 139 mmol/L (133-145); Total Protein 7.6 g/dL (6.4-8.9)
[2016-12-06 21:15] LABS: Benzodiazepine Urine Screen None Detected (None Detect)
[2016-12-06 21:31] LABS: Acetaminophen < 15 mcg/mL; Alcohol 244 mg/dL (<10); Salicylate < 2.50 mg/dL (<30)
[2016-12-06 21:34] LABS: Add Path Review? YES; Immature Granulocytes 1 % (0-9); Neutrophil % 68 % (38-83); RBC Morphology Normal (Normal); Reactive Lymph % 3 % (0-6)
[2016-12-06 21:40] LABS: TSH (Thyroid Stimulating Horm) 0.79 mcIU/mL (0.34-5.60)
[2016-12-07 06:26] VITALS: BP 115/52
--- NOTE | 2016-12-11 07:29 | ED ---
Mary Anne Jeff Anna, scribed for Raphael Burt MD on 12/06/16 at 1630 . HPI Chest Pain - HPI Summary HPI Summary: Patient is a 41 y/o male coming to [facility] presenting with mid-sternal chest pain that began this morning. He does not report taking medication for any medical problems. He normally lives at the [facility], but he was outside for two days. He says he has been drinking a little. He thinks he fell asleep outside. He says he is really cold. - History of Current Complaint Chief Complaint: EDExposureHeatCold Time Seen by Provider: 12/06/16 16:22 Hx Obtained From: Patient - Additional Pertinent History Primary Care Physician: Dr. Barton at [facility] - Allergy/Home Medications Allergies/Adverse Reactions: Allergies Allergy/AdvReac Type Severity Reaction Status Date / Time No Known Allergies Allergy Verified 10/13/16 14:42 PMH/Surg Hx/FS Hx/Imm Hx Endocrine/Hematology History: Reports: Hx Anticoagulant Therapy - Xarelto 20mg daily Denies: Hx Diabetes, Hx Thyroid Disease Cardiovascular History: Reports: Hx Hypertension Denies: Hx Pacemaker/ICD Respiratory History: Denies: Hx Asthma, Hx Chronic Obstructive Pulmonary Disease (COPD) History: Denies: Hx Renal Disease Neurological History: Reports: Hx Seizures - not taking med "I can't afford them " Denies: Hx Dementia Psychiatric History: Reports: Hx of Violent Episodes Against Others, Hx Substance Abuse - alcoholism Denies: Hx Eating Disorder - Surgical History Surgery Procedure, Year, and Place: knee surgery as a child Infectious Disease History: Denies: Hx Hepatitis, Hx Human Immunodeficiency Virus (HIV), Hx of Known/ Suspected MRSA, Hx Known/Suspected VRSA, History Other Infectious Disease - Family History Known Family History: Positive: Diabetes, Other - alcohol abuse - father - Social History Lives: Intermediate - Long-Term - [facility] Alcohol Use: Daily Alcohol Amount: 5-6 24oz beers daily Substance Use Type: Reports: None Hx Tobacco Use: Yes Smoking Status (MU): Light Every Day Tobacco Smoker Review of Systems Positive: Other - cold Positive: Chest Pain All Other Systems Reviewed And Are Negative: Yes Physical Exam Triage Information Reviewed: Yes Vital Signs On Initial Exam: Temp Pulse Resp BP Pulse Ox 98.6 F 69 13 108/65 97 12/06/16 18:11 12/06/16 18:11 12/06/16 18:11 12/06/16 18:11 12/06/16 18:11 Vital Signs Reviewed: Yes Appearance: Positive: Well-Appearing - Pt smells like alcohol., No Pain Distress Skin: Positive: Warm, Skin Color Reflects Adequate Perfusion, Dry Head/Face: Positive: Normal Head/Face Inspection Eyes: Positive: Normal ENT: Positive: Normal ENT inspection Neck: Positive: Supple, Nontender Respiratory/Lung Sounds: Positive: Clear to Auscultation, Breath Sounds Present Cardiovascular: Positive: RRR Abdomen Description: Positive: Nontender, Soft Bowel Sounds: Positive: Present Musculoskeletal: Positive: Normal Neurological: Positive: Normal Psychiatric: Positive: Affect/Mood Appropriate Diagnostics - Vital Signs Vital Signs Temp Pulse Resp BP Pulse Ox 12/07/16 06:24 98.5 F 12/07/16 06:14 70 115/52 94 12/07/16 06:00 82 116/48 94 12/07/16 05:30 85 126/77 94 12/07/16 05:00 88 117/89 95 12/07/16 04:30 86 134/73 92 12/07/16 04:00 82 126/84 93 12/07/16 03:30 91 129/89 93 12/07/16 03:00 88 105/55 92 12/07/16 02:30 94 128/84 93 12/07/16 02:00 87 109/50 93 12/07/16 01:30 95 108/74 92 12/07/16 01:00 97 121/80 93 12/07/16 00:30 88 106/50 90 12/07/16 00:01 100 112/63 90 12/06/16 23:30 107 127/79 91 12/06/16 23:00 99 126/74 94 12/06/16 22:30 92 104/58 90 12/06/16 22:27 95 90 12/06/16 21:00 99.0 F 85 16 121/73 95 12/06/16 19:00 109/61 12/06/16 18:30 77 16 109/75 94 12/06/16 18:11 98.6 F 69 13 108/65 97 12/06/16 18:10 98.6 F 67 13 105/65 95 12/06/16 18:00 71 14 108/65 94 03/28/17 17:30 63 12 108/62 95 12/06/16 17:00 65 12 115/67 93 12/06/16 16:30 76 117/81 89 12/06/16 16:23 76 91 12/06/16 16:21 121/80 12/06/16 16:10 97.7 F 88 18 117/81 94 - Laboratory Lab Results: Lab Results 12/06/16 12/06/16 12/06/16 Range/Units 20:44 20:44 20:49 WBC 8.0 (3.5-10.8) 10^3/ul RBC 5.39 (4.0-5.4) 10^6/ul Hgb 16.7 (14.0-18.0) g/dl Hct 50 (42-52) % MCV 92 (80-94) fL MCH 31 (27-31) pg MCHC 34 (31-36) g/dl RDW 13 (10.5-15) % Plt Count 237 (150-450) 10^3/ul MPV 7 L (7.4-10.4) um3 Immature Gran % (Auto) 1 (0-9) % Absolute Neuts (auto) 5.4 (1.5-7.7) 10^3/ul Absolute Lymphs (auto) 1.9 (1.0-4.8) 10^3/ul Absolute Monos (auto) 0.6 (0-0.8) 10^3/ul Absolute Eos (auto) 0.1 (0-0.6) 10^3/ul Absolute Basos (auto) 0.1 (0-0.2) 10^3/ul Absolute Nucleated RBC 0.01 10^3/ul Neutrophils % 68 (38-83) % Band Neutrophils % 1 (0-8) % Lymphocytes % 22 L (25-47) % Reactive Lymphs % 3 (0-6) % Monocytes % 4 (0-13) % Basophils % 2 (0-2) % Normal RBC Morphology Normal (Normal) Hem Pathologist Commnt Sodium 139 (133-145) mmol/L Potassium 3.6 (3.5-5.0) mmol/L Chloride 103 (101-111) mmol/L Carbon Dioxide 25 (22-32) mmol/L Anion Gap 11 (2-11) mmol/L BUN 7 (6-24) mg/dL Creatinine 0.59 L (0.67-1.17) mg/dL Est GFR ( Amer) 192.8 (>60) Est GFR (Non-Af Amer) 149.9 (>60) BUN/Creatinine Ratio 11.9 (8-20) Glucose 85 (70-100) mg/dL Calcium 8.8 (8.6-10.3) mg/dL Total Bilirubin 0.60 (0.2-1.0) mg/dL AST 40 H (13-39) U/L ALT 26 (7-52) U/L Alkaline Phosphatase 61 (34-104) U/L Total Protein 7.6 (6.4-8.9) g/dL Albumin 4.2 (3.2-5.2) g/dL Globulin 3.4 (2-4) g/dL Albumin/Globulin Ratio 1.2 (1-3) TSH 0.79 (0.34-5.60) mcIU/mL Urine Color Yellow Urine Appearance Cloudy Urine pH 5.0 (5-9) Ur Specific [place] 1.019 (1.010-1.030) Urine Protein 1+(30 mg/dl) H (Negative) Urine Ketones Trace H (Negative) Urine Blood Negative (Negative) Urine Nitrate Negative (Negative) Urine Bilirubin Negative (Negative) Urine Urobilinogen Negative (Negative) Ur Leukocyte Esterase Negative (Negative) Urine WBC (Auto) Trace(0-5/hpf) (Absent) Urine RBC (Auto) Trace(0-2/hpf) (Absent) Urine Bacteria Absent (Absent) Hyaline Casts Present H (Absent) Granular Casts Present H (Absent) Urine Glucose Negative (Negative) Salicylates < 2.50 (<30) mg/dL Urine Opiates Screen (None Detect) Acetaminophen < 15 mcg/mL Ur Barbiturates Screen (None Detect) Ur Phencyclidine Scrn (None Detect) Ur Amphetamines Screen (None Detect) U Benzodiazepines Scrn (None Detect) Urine Cocaine Screen (None Detect) U Cannabinoids Screen (None Detect) Serum Alcohol 244 H (<10) mg/dL 12/06/16 Range/Units 20:49 WBC (3.5-10.8) 10^3/ul RBC (4.0-5.4) 10^6/ul Hgb (14.0-18.0) g/dl Hct (42-52) % MCV (80-94) fL MCH (27-31) pg MCHC (31-36) g/dl RDW (10.5-15) % Plt Count (150-450) 10^3/ul MPV (7.4-10.4) um3 Immature Gran % (Auto) (0-9) % Absolute Neuts (auto) (1.5-7.7) 10^3/ul Absolute Lymphs (auto) (1.0-4.8) 10^3/ul Absolute Monos (auto) (0-0.8) 10^3/ul Absolute Eos (auto) (0-0.6) 10^3/ul Absolute Basos (auto) (0-0.2) 10^3/ul Absolute Nucleated RBC 10^3/ul Neutrophils % (38-83) % Band Neutrophils % (0-8) % Lymphocytes % (25-47) % Reactive Lymphs % (0-6) % Monocytes % (0-13) % Basophils % (0-2) % Normal RBC Morphology (Normal) Hem Pathologist Commnt Sodium (133-145) mmol/L Potassium (3.5-5.0) mmol/L Chloride (101-111) mmol/L Carbon Dioxide (22-32) mmol/L Anion Gap (2-11) mmol/L BUN (6-24) mg/dL Creatinine (0.67-1.17) mg/dL Est GFR ( Amer) (>60) Est GFR (Non-Af Amer) (>60) BUN/Creatinine Ratio (8-20) Glucose (70-100) mg/dL Calcium (8.6-10.3) mg/dL Total Bilirubin (0.2-1.0) mg/dL AST (13-39) U/L ALT (7-52) U/L Alkaline Phosphatase (34-104) U/L Total Protein (6.4-8.9) g/dL Albumin (3.2-5.2) g/dL Globulin (2-4) g/dL Albumin/Globulin Ratio (1-3) TSH (0.34-5.60) mcIU/mL Urine Color Urine Appearance Urine pH (5-9) Ur Specific [place] (1.010-1.030) Urine Protein (Negative) Urine Ketones (Negative) Urine Blood (Negative) Urine Nitrate (Negative) Urine Bilirubin (Negative) Urine Urobilinogen (Negative) Ur Leukocyte Esterase (Negative) Urine WBC (Auto) (Absent) Urine RBC (Auto) (Absent) Urine Bacteria (Absent) Hyaline Casts (Absent) Granular Casts (Absent) Urine Glucose (Negative) Salicylates (<30) mg/dL Urine Opiates Screen None detected (None Detect) Acetaminophen mcg/mL Ur Barbiturates Screen None detected (None Detect) Ur Phencyclidine Scrn None detected (None Detect) Ur Amphetamines Screen None detected (None Detect) U Benzodiazepines Scrn None detected (None Detect) Urine Cocaine Screen None detected (None Detect) U Cannabinoids Screen None detected (None Detect) Serum Alcohol (<10) mg/dL Result Diagrams: 12/06/16 20:44 12/06/16 20:44 Lab Statement: Any lab studies that have been ordered have been reviewed, and results considered in the medical decision making process. - EKG 1701 Cardiac Rate: NL - 74 bpm EKG Rhythm: Sinus Rhythm ST Segment: Normal Ectopy: None Chest Pain Course/Dx - Course Course Of Treatment: Mr. Tran is stable and intoxicated and I am waiting for him to sober up. - Diagnoses Provider Diagnoses: Alcohol intoxication - Provider Notifications Discussed Care Of Patient With: Dr. Peraza at [facility] of shift Discharge - Discharge Plan Condition: Stable Disposition: HOME Patient Education Materials: Alcohol Intoxication (ED), Abuse of Alcohol (ED) Referrals: Cirilo Barton MD [Primary Care Provider] - Additional Instructions: Follow up with primary care provider within 48 hours. Return to the emergency department for any new or worsening symptoms. The documentation as recorded by the Mary Anne campbell Anna accurately reflects the service I personally performed and the decisions made by , Raphael Burt MD.
--- NOTE | 2016-12-16 23:25 | ED ---
Edwardo Jeff Alok, scribed for Kenneth Peraza MD on 12/07/16 at 0608 . Re-Evaluation - Re-Evaluation First Eval Re-Evaluation Time: 06:08 Change: Improved Course/Dx - Diagnoses Provider Diagnoses: Alcohol intoxication The documentation as recorded by the Edwardo campbell Alok accurately reflects the service I personally performed and the decisions made by , Kenneth Peraza MD.
== END 2016-12-07 06:24 | disposition home or self-care (01) ==
LOC: ED 15:56
DX: F10.129 Alcohol abuse with intoxication, unspecified (principal); Y90.8 Blood alcohol level of 240 mg/100 ml or more; F17.210 Nicotine dependence, cigarettes, uncomplicated
CPT/HCPCS: 36415; 80053; 80307; 80320; 80329; 81003; 81015; 84443; 85025; 85060; 93005; 99284; G0480

== ENCOUNTER 2017-04-30 13:34 | Emergency (ER) | payer SELFPAY ==
[2017-04-30 14:44] LABS: Hematocrit 48 % (42-52); Hemoglobin 16.3 g/dl (14.0-18.0); Mean Corpuscular HGB Conc 34 g/dl (31-36); Mean Corpuscular Hemoglobin 32 pg (27-31); Mean Corpuscular Volume 94 fL (80-94); Mean Platelet Volume 8 um3 (7.4-10.4); Red Blood Count 5.07 10^6/ul (4.0-5.4); Red Cell Distribution Width 13 % (10.5-15); White Blood Count 5.2 10^3/ul (3.5-10.8)
[2017-04-30 14:46] LABS: Urine Bilirubin Negative (Negative); Urine Glucose Negative (Negative); Urine Nitrite Negative (Negative)
[2017-04-30 14:55] LABS: ALT 69 U/L (7-52); AST 118 U/L (13-39); Albumin 4.5 g/dL (3.2-5.2); Alkaline Phosphatase 67 U/L (34-104); Anion Gap 9 mmol/L (2-11); BUN/Creatinine Ratio 9.1 (8-20); Blood Urea Nitrogen 5 mg/dL (6-24); CO2 Carbon Dioxide 23 mmol/L (22-32); Calcium 9.1 mg/dL (8.6-10.3); Chloride 104 mmol/L (101-111); EGFR African American 208.1 (>60); EGFR Non-African American 161.8 (>60); Globulin 3.3 g/dL (2-4); Glucose 99 mg/dL (70-100); Potassium 3.5 mmol/L (3.5-5.0); Sodium 136 mmol/L (133-145); Total Protein 7.8 g/dL (6.4-8.9)
[2017-04-30 14:59] LABS: Acetaminophen < 15 mcg/mL; Alcohol 329 mg/dL (<10); Salicylate < 2.50 mg/dL (<30)
[2017-04-30 15:00] LABS: Benzodiazepine Urine Screen None Detected (None Detect)
[2017-04-30 15:09] LABS: TSH (Thyroid Stimulating Horm) 0.92 mcIU/mL (0.34-5.60)
[2017-05-01 02:49] VITALS: BP 120/77
--- NOTE | 2017-05-03 08:17 | ED ---
Elle Jeff Edward, scribed for Cirilo Young MD on 04/30/17 at 1427 . Psychiatric Complaint - HPI Summary HPI Summary: 42 y/o male PELON c/o intermittent episodes of sudden onset depression starting at 13:00 today. Pt states the depression is caused by the recent of a friend. His condition is not alleviated or aggravated by anything. - History Of Current Complaint Chief Complaint: EDMentalHealth Time Seen by Provider: 04/30/17 14:25 Hx Obtained From: Patient Onset/Duration: Lasting Hours Timing: Intermittent Episode Lasting Character: Depressed Aggravating Factor(s): Recent Stress - of friend - Allergies/Home Medications Allergies/Adverse Reactions: Allergies Allergy/AdvReac Type Severity Reaction Status Date / Time No Known Allergies Allergy Verified 10/13/16 14:42 PMH/Surg Hx/FS Hx/Imm Hx Previously Healthy: No Endocrine/Hematology History: Reports: Hx Anticoagulant Therapy - Xarelto 20mg daily Denies: Hx Diabetes, Hx Thyroid Disease Cardiovascular History: Reports: Hx Hypertension Denies: Hx Pacemaker/ICD Respiratory History: Denies: Hx Asthma, Hx Chronic Obstructive Pulmonary Disease (COPD) History: Denies: Hx Renal Disease Neurological History: Reports: Hx Seizures - not taking med "I can't afford them " Denies: Hx Dementia Psychiatric History: Reports: Hx of Violent Episodes Against Others, Hx Substance Abuse - alcoholism Denies: Hx Eating Disorder - Surgical History Surgery Procedure, Year, and Place: knee surgery as a child Infectious Disease History: Denies: Hx Hepatitis, Hx Human Immunodeficiency Virus (HIV), Hx of Known/ Suspected MRSA, Hx Known/Suspected VRSA, History Other Infectious Disease - Family History Known Family History: Positive: Diabetes, Other - alcohol abuse - father - Social History Alcohol Use: Daily Alcohol Amount: 5-6 24oz beers daily Hx Substance Use: No Substance Use Type: Reports: None Hx Tobacco Use: Yes Smoking Status (MU): Light Every Day Tobacco Smoker Review of Systems Constitutional: Negative Eyes: Negative ENT: Negative Cardiovascular: Negative Respiratory: Negative Gastrointestinal: Negative Genitourinary: Negative Musculoskeletal: Negative Skin: Negative Neurological: Negative Positive: Depressed All Other Systems Reviewed And Are Negative: Yes Physical Exam Triage Information Reviewed: Yes Vital Signs On Initial Exam: Initial Vitals Temp Pulse Resp BP Pulse Ox 97.7 F 80 20 109/73 97 04/30/17 14:18 08/20/17 14:18 04/30/17 14:18 04/30/17 14:18 04/30/17 14:18 Vital Signs Reviewed: Yes Appearance: Positive: Well-Appearing, No Pain Distress Skin: Positive: Warm, Skin Color Reflects Adequate Perfusion, Dry Head/Face: Positive: Normal Head/Face Inspection Eyes: Positive: EOMI, ROX ENT: Positive: Normal ENT inspection Neck: Positive: Supple, Nontender Respiratory/Lung Sounds: Positive: Clear to Auscultation, Breath Sounds Present Cardiovascular: Positive: RRR Abdomen Description: Positive: Nontender, Soft Bowel Sounds: Positive: Present Musculoskeletal: Positive: Normal, Strength/ROM Intact Neurological: Positive: Normal, Sensory/Motor Intact, Alert, Oriented to Person Place, Time Psychiatric: Positive: Normal, Affect/Mood Appropriate Diagnostics - Vital Signs Vital Signs Temp Pulse Resp BP Pulse Ox 05/01/17 02:48 99.2 F 94 20 120/77 96 04/30/17 18:35 97.9 F 76 18 121/74 97 04/30/17 14:18 97.7 F 80 20 109/73 97 - Laboratory Lab Results: Lab Results 04/30/17 04/30/17 04/30/17 Range/Units 13:48 13:48 14:10 WBC 5.2 (3.5-10.8) 10^3/ul RBC 5.07 (4.0-5.4) 10^6/ul Hgb 16.3 (14.0-18.0) g/dl Hct 48 (42-52) % MCV 94 (80-94) fL MCH 32 H (27-31) pg MCHC 34 (31-36) g/dl RDW 13 (10.5-15) % Plt Count 154 (150-450) 10^3/ul MPV 8 (7.4-10.4) um3 Neut % (Auto) 58.2 (38-83) % Lymph % (Auto) 25.9 (25-47) % [place] % (Auto) 11.8 H (1-9) % Eos % (Auto) 3.4 (0-6) % Baso % (Auto) 0.7 (0-2) % Absolute Neuts (auto) 3.0 (1.5-7.7) 10^3/ul Absolute Lymphs (auto) 1.3 (1.0-4.8) 10^3/ul Absolute Monos (auto) 0.6 (0-0.8) 10^3/ul Absolute Eos (auto) 0.2 (0-0.6) 10^3/ul Absolute Basos (auto) 0 (0-0.2) 10^3/ul Absolute Nucleated RBC 0 10^3/ul Nucleated RBC % 0 Sodium (133-145) mmol/L Potassium (3.5-5.0) mmol/L Chloride (101-111) mmol/L Carbon Dioxide (22-32) mmol/L Anion Gap (2-11) mmol/L BUN (6-24) mg/dL Creatinine (0.67-1.17) mg/dL Est GFR ( Amer) (>60) Est GFR (Non-Af Amer) (>60) BUN/Creatinine Ratio (8-20) Glucose (70-100) mg/dL Calcium (8.6-10.3) mg/dL Total Bilirubin (0.2-1.0) mg/dL AST (13-39) U/L ALT (7-52) U/L Alkaline Phosphatase (34-104) U/L Total Protein (6.4-8.9) g/dL Albumin (3.2-5.2) g/dL Globulin (2-4) g/dL Albumin/Globulin Ratio (1-3) TSH (0.34-5.60) mcIU/mL Urine Color Straw Urine Appearance Clear Urine pH 6.0 (5-9) Ur Specific [place] 1.002 L (1.010-1.030) Urine Protein Negative (Negative) Urine Ketones Negative (Negative) Urine Blood Negative (Negative) Urine Nitrate Negative (Negative) Urine Bilirubin Negative (Negative) Urine Urobilinogen Negative (Negative) Ur Leukocyte Esterase Negative (Negative) Urine Glucose Negative (Negative) Salicylates (<30) mg/dL Urine Opiates Screen None detected (None Detect) Acetaminophen mcg/mL Ur Barbiturates Screen None detected (None Detect) Ur Phencyclidine Scrn None detected (None Detect) Ur Amphetamines Screen None detected (None Detect) U Benzodiazepines Scrn None detected (None Detect) Urine Cocaine Screen None detected (None Detect) U Cannabinoids Screen None detected (None Detect) Serum Alcohol (<10) mg/dL 08/20/17 Range/Units 14:10 WBC (3.5-10.8) 10^3/ul RBC (4.0-5.4) 10^6/ul Hgb (14.0-18.0) g/dl Hct (42-52) % MCV (80-94) fL MCH (27-31) pg MCHC (31-36) g/dl RDW (10.5-15) % Plt Count (150-450) 10^3/ul MPV (7.4-10.4) um3 Neut % (Auto) (38-83) % Lymph % (Auto) (25-47) % [place] % (Auto) (1-9) % Eos % (Auto) (0-6) % Baso % (Auto) (0-2) % Absolute Neuts (auto) (1.5-7.7) 10^3/ul Absolute Lymphs (auto) (1.0-4.8) 10^3/ul Absolute Monos (auto) (0-0.8) 10^3/ul Absolute Eos (auto) (0-0.6) 10^3/ul Absolute Basos (auto) (0-0.2) 10^3/ul Absolute Nucleated RBC 10^3/ul Nucleated RBC % Sodium 136 (133-145) mmol/L Potassium 3.5 (3.5-5.0) mmol/L Chloride 104 (101-111) mmol/L Carbon Dioxide 23 (22-32) mmol/L Anion Gap 9 (2-11) mmol/L BUN 5 L (6-24) mg/dL Creatinine 0.55 L (0.67-1.17) mg/dL Est GFR ( Amer) 208.1 (>60) Est GFR (Non-Af Amer) 161.8 (>60) BUN/Creatinine Ratio 9.1 (8-20) Glucose 99 (70-100) mg/dL Calcium 9.1 (8.6-10.3) mg/dL Total Bilirubin 0.70 (0.2-1.0) mg/dL AST 118 H (13-39) U/L ALT 69 H (7-52) U/L Alkaline Phosphatase 67 (34-104) U/L Total Protein 7.8 (6.4-8.9) g/dL Albumin 4.5 (3.2-5.2) g/dL Globulin 3.3 (2-4) g/dL Albumin/Globulin Ratio 1.4 (1-3) TSH 0.92 (0.34-5.60) mcIU/mL Urine Color Urine Appearance Urine pH (5-9) Ur Specific [place] (1.010-1.030) Urine Protein (Negative) Urine Ketones (Negative) Urine Blood (Negative) Urine Nitrate (Negative) Urine Bilirubin (Negative) Urine Urobilinogen (Negative) Ur Leukocyte Esterase (Negative) Urine Glucose (Negative) Salicylates < 2.50 (<30) mg/dL Urine Opiates Screen (None Detect) Acetaminophen < 15 mcg/mL Ur Barbiturates Screen (None Detect) Ur Phencyclidine Scrn (None Detect) Ur Amphetamines Screen (None Detect) U Benzodiazepines Scrn (None Detect) Urine Cocaine Screen (None Detect) U Cannabinoids Screen (None Detect) Serum Alcohol 329 H (<10) mg/dL Result Diagrams: 04/30/17 14:10 04/30/17 14:10 Lab Statement: Any lab studies that have been ordered have been reviewed, and results considered in the medical decision making process. Course/Dx - Course Course Of Treatment: Patient discharged after MHE - Differential Dx/Clinical Impression Provider Diagnosis: Mental health problem Discharge - Discharge Plan Condition: Stable Disposition: HOME Referrals: Cirilo Barton MD [Primary Care Provider] - Additional Instructions: Per completion of a mental health evaluation, you are cleared for release and do not require inpatient psychiatric hospitalization at this time. Please go to nearest emergency room or call 911 if safety concerns arise or condition worsens. Important Phone Numbers: [facility] [phone] Suicide Prevention and Crisis Services [phone] National Suicide Prevention Lifeline [phone] ([phone]) [facility] [phone] Alcoholics Anonymous [phone] [facility] [phone] [place] [employer] [phone] The documentation as recorded by the Elle campbell Edward accurately reflects the service I personally performed and the decisions made by me, Cirilo Young MD.
== END 2017-05-01 02:37 | disposition home or self-care (01) ==
LOC: ED 13:34
DX: F32.9 Major depressive disorder, single episode, unspecified (principal); Z04.8 Encounter for examination and observation for other specified reasons; I10 Essential (primary) hypertension; R56.9 Unspecified convulsions; Z79.01 Long term (current) use of anticoagulants; F17.210 Nicotine dependence, cigarettes, uncomplicated
CPT/HCPCS: 36415; 80053; 80307; 80320; 80329; 81003; 84443; 85025; 99285; G0480

== ENCOUNTER 2017-05-30 19:16 | Observation (INO) | payer SELFPAY ==
[2017-05-30] MEDS ORDERED: NS 0.9% 1000 ML* 1,000 ML IV ONE (20:02)
[2017-05-30 20:44] LABS: Hematocrit 46 % (42-52); Hemoglobin 15.9 g/dl (14.0-18.0); Mean Corpuscular HGB Conc 35 g/dl (31-36); Mean Corpuscular Hemoglobin 33 pg (27-31); Mean Corpuscular Volume 95 fL (80-94); Mean Platelet Volume 7 um3 (7.4-10.4); Red Blood Count 4.85 10^6/ul (4.0-5.4); Red Cell Distribution Width 13 % (10.5-15); White Blood Count 6.6 10^3/ul (3.5-10.8)
[2017-05-30 20:50] LABS: Urine Bacteria 1+ (Absent)
[2017-05-30 20:51] LABS: Urine Bilirubin Negative (Negative); Urine Glucose Negative (Negative); Urine Nitrite Negative (Negative)
[2017-05-30 21:01] LABS: ALT 38 U/L (7-52); AST 61 U/L (13-39); Albumin 4.1 g/dL (3.2-5.2); Alkaline Phosphatase 69 U/L (34-104); Anion Gap 9 mmol/L (2-11); BUN/Creatinine Ratio 6.3 (8-20); Blood Urea Nitrogen 4 mg/dL (6-24); C Reactive Protein 3.28 mg/L (< 5.00); CO2 Carbon Dioxide 25 mmol/L (22-32); Calcium 8.7 mg/dL (8.6-10.3); Chloride 104 mmol/L (101-111); Creatine Kinase 123 U/L (10-223); EGFR African American 174.7 (>60); EGFR Non-African American 135.9 (>60); Globulin 3.4 g/dL (2-4); Glucose 94 mg/dL (70-100); Magnesium 2.3 mg/dL (1.9-2.7); Potassium 3.6 mmol/L (3.5-5.0); Sodium 138 mmol/L (133-145); Total Protein 7.5 g/dL (6.4-8.9)
--- NOTE | 2017-05-30 21:17 | RAD ---
HISTORY: Left arm and leg weakness COMPARISONS: March 10, 2014 TECHNIQUE: Multiple contiguous axial CT scans were obtained of the head without intravenous contrast. FINDINGS: HEMORRHAGE/INFARCT: There is no hemorrhage or acute infarct. MASSES/SHIFT: There is no mass or shift. EXTRA-AXIAL SPACES: There are no extra-axial fluid collections. SULCI AND VENTRICLES: The sulci and ventricles are normal in size and position for the patient's stated age. CEREBRUM: There are no focal parenchymal abnormalities. BRAINSTEM: There are no focal parenchymal abnormalities. CEREBELLUM: There are no focal parenchymal abnormalities. VESSELS: The vessels are grossly normal. PARANASAL SINUSES: The paranasal sinuses are clear. ORBITS: The orbits are unremarkable. BONES AND SOFT TISSUE: No bone or soft tissue abnormalities are noted. OTHER: None IMPRESSION: NO ACUTE INTRACRANIAL PATHOLOGY. PRELIMINARY FINDINGS WERE DISCUSSED WITH DR. LEO AT APPROXIMATELY 9:12 PM ON 2016.
[2017-05-30 21:26] LABS: TSH (Thyroid Stimulating Horm) 1.51 mcIU/mL (0.34-5.60)
[2017-05-30 21:33] LABS: Acetaminophen < 15 mcg/mL; Alcohol 337 mg/dL (<10); Salicylate < 2.50 mg/dL (<30)
[2017-05-30] MEDS ORDERED: Thiamine IV 100 MG, Folic Acid IV* 1 MG, Multiple Vitamin IV ADULT* 10 ML in NS 0.9% 10... IV ONE (22:01)
[2017-05-30 22:07] LABS: Lipase 33 U/L (11.0-82.0)
[2017-05-30] MEDS ORDERED: Acetaminophen TAB* 325 MG PO PRN (22:32)
[2017-05-30] MEDS ORDERED: NS 0.9% 1000 ML* 1,000 ML IV SCH (22:45)
[2017-05-30] MEDS ORDERED: Aspirin Low Dose CHEW TAB* 81 MG PO ONE (22:51)
[2017-05-30] MEDS ORDERED: LORazepam TAB(*) 1 MG PO SCH (23:00)
[2017-05-31] MEDS: LORazepam INJ* 2 MG/ML 1 ML VIAL IV SCH ×3 (00:17→15:43)
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
[2017-05-31] MEDS: Heparin VIAL(*) 5000 UNITS/ML VIAL (FIVE THOUSAND) SUBCUT SCH ×2 (05:50→13:59)
--- NOTE | 2017-05-31 07:47 | RAD ---
HISTORY: Rule out stroke COMPARISONS: Head CT dated May 30, 2017 TECHNIQUE: The following sequences were obtained of the head: Sagittal T1-weighted images, axial T2-weighted images, axial FLAIR images, axial susceptibility weighted images, axial T1-weighted images. Additionally, axial diffusion-weighted images were obtained with calculated apparent diffusion coefficients. FINDINGS: HEMORRHAGE/INFARCT: There is no hemorrhage or acute infarct. MASSES/SHIFT: There is no mass or shift. EXTRA-AXIAL SPACES/MENINGES: There are no extra-axial fluid collections. SULCI AND VENTRICLES: The sulci and ventricles are normal in size and position for the patient's stated age. CEREBRUM: There are no focal parenchymal abnormalities. BRAINSTEM: There are no focal parenchymal abnormalities. CEREBELLUM: There are no focal parenchymal abnormalities. The cerebellar tonsils are normal in size and position. SELLA: The sella is normal. PINEAL: The pineal region is clear. CP ANGLE/TEMPORAL BONES: The labyrinthine structures are grossly normal. VESSELS: Normal flow-voids are noted within the visualized vertebral vasculature. DIFFUSION ABNORMALITIES: There are no diffusion abnormalities. PARANASAL SINUSES/MASTOIDS: There is mucosal thickening of the maxillary sinuses bilaterally ORBITS: The orbits are unremarkable. BONES AND SOFT TISSUE: No bone or soft tissue abnormalities are noted. OTHER: None IMPRESSION: NO RESTRICTED DIFFUSION TO SUGGEST ACUTE INFARCT.
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
[2017-05-31] MEDS ORDERED: Influenza VAC *QUAD* 2017-18* 0.5 ML SYRINGE IM ONE (09:00)
[2017-05-31] MEDS ORDERED: Thiamine TAB* 100 MG TAB PO SCH (09:00)
[2017-05-31] MEDS ORDERED: Folic Acid TAB* 1 MG PO SCH (09:00)
[2017-05-31] MEDS ORDERED: Multivitamins/Minerals TAB PO SCH (09:00)
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
[2017-05-31 15:45] VITALS: BP 134/78
--- NOTE | 2017-06-01 11:52 | DS ---
CC: Dr. Barton; Dr. Watson * DISCHARGE SUMMARY: DATE OF ADMISSION: 05/30/17 DATE OF DISCHARGE: 05/31/17 PRIMARY CARE PHYSICIAN: Dr. Barton. ATTENDING PHYSICIAN: Dr. Amy Tolbert DO * (report dictated by Mi Calero NP). PRIMARY DIAGNOSES: 1. Weakness. 2. Dizziness. SECONDARY DIAGNOSES: 1. Alcohol abuse. 2. History of pulmonary embolism and deep venous thrombosis. STUDIES WHILE IN THE HOSPITAL: 1. MRI of the brain without contrast, no restricted diffusion to suggest acute infarct, that was 05/30/17. 2. 05/30/17 CT of the brain without contrast, no acute intracranial pathology. CONSULTATIONS WHILE IN THE HOSPITAL: Dr. Elliot Watson, Neurology. MEDICATIONS AT THE TIME OF DISCHARGE: New medications: 1. Folic acid 1 mg oral daily. 2. Multivitamin 1 tablet oral daily. 3. Thiamine B1 of 100 mg oral daily. Following are medications the patient came in on: 1. Advil 400 mg every 6 hours as needed. 2. Colace 100 mg oral daily. 3. Neurontin 300 mg oral 3 times daily. 4. Senna 1 tablet oral at bedtime. HISTORY OF PRESENT ILLNESS AND HOSPITAL COURSE: Mr. Tran is a 42-year-old male with a history of alcoholism, DVT, PE who came to the hospital with a compliant of dizziness. The emergency room, he was evaluated and felt that he had left-sided weakness hence there was a code sandhu called. The patient's neurological exam was inconsistent. He was admitted to the telemetry floor for overnight observation and for MRI. The patient was placed on telemetry and monitored overnight. The patient had an MRI which showed no evidence of acute stroke. The patient's neurological exam was virtually normal in the morning. He was able to ambulate without difficulty. He was evaluated by the neurologist , please see Dr. Watson's dictation for details. Dr. Watson felt that there was no evidence of any stroke. There was a recommendation that the patient should most likely be on a blood thinner, yet given his drinking and fall risk, the safety of being on this medication comes into question. The patient states he has a history of a recent DVT. I could not find in the records documentation of the DVT within the past year. The patient stated he was not on any medications, yet the reconciliation states he is currently taking Xarelto. Given the patient's noncompliance and fall risk the patient will not be discharged on Xarelto at this time. I feel that he is at too high of a fall risk to be on this medication. For his alcohol abuse, he was placed on thiamine, folic acid, and multivitamin; he will be discharged on these medications. The patient did not have any evidence of any significant withdrawal symptoms while he was here. He should continue to seek outpatient drug rehab. On 05/31/17, the patient's vitals were as follows: Temperature 99.2, heart rate 71, respiratory rate 16, blood pressure 120/79, and oxygen saturation 97% on room air. At this point he is stable for discharge. DISCHARGE PLAN: The patient was discharged on a regular diet with activity as tolerated. The patient should follow up with his primary care provider within 7 to 10 days. The patient should return to the hospital if he experiences any worsening weakness or vision changes. I have reviewed the instructions with the patient and he is agreeable with his discharge. This is a summarized report of a complex medical history and hospital stay. For more details please see the entire medical record. TIME SPENT: Time for discharge was 60 minutes and 25 minutes was spent with the patient discussing discharge information. CONDITION ON DISCHARGE: Stable. MI CALERO NP [id number]/[facility] #: [id number] MEMO
== END 2017-05-31 15:25 | disposition home or self-care (01) ==
LOC: ED 19:16 → MEDTELE 22:16
PROVIDERS: ADMIT Internal Medicine; ATTEND Internal Medicine
DX: R53.1 Weakness (principal); R42 Dizziness and giddiness; F10.20 Alcohol dependence, uncomplicated; F10.24 Alcohol dependence with alcohol-induced mood disorder; M17.12 Unilateral primary osteoarthritis, left knee; Z86.711 Personal history of pulmonary embolism; Z86.718 Personal history of other venous thrombosis and embolism; Z79.899 Other long term (current) drug therapy; F17.210 Nicotine dependence, cigarettes, uncomplicated; R20.0 Anesthesia of skin; R47.81 Slurred speech; Z23 Encounter for immunization; M79.605 Pain in left leg
CPT/HCPCS: 36415; 70450; 70551; 80053; 80320; 80329; 81003; 82550; 82553; 83605; 83690; 83735; 84443; 84484; 85025; 85610; 85730; 86140; 87086; 90686; 93005; 96361; 96365; 96372; 96375; 99284; A9270-GY; G0378; G0480; J1644; J2060; J3411

== ENCOUNTER 2018-09-29 11:47 | Emergency (ER) | payer OTHER ==
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
[2018-09-29 15:00] VITALS: BP 141/86
== END 2018-09-29 14:59 | disposition home or self-care (01) ==
LOC: ED 11:47
DX: S82.831A Other fracture of upper and lower end of right fibula, initial encounter for closed fracture (principal); V19.3XXA Pedal cyclist (driver) (passenger) injured in unspecified nontraffic accident, initial encounter; Y92.009 Unspecified place in unspecified non-institutional (private) residence as the place of occurrence of the external cause; Z79.01 Long term (current) use of anticoagulants; Z87.891 Personal history of nicotine dependence
CPT/HCPCS: 99282

== ENCOUNTER 2018-12-16 23:31 | Emergency (ER) | payer OTHER ==
--- OUTSIDE RECORDS SUMMARY | 2018-12-16 23:59 | XMS REPORT | Continuity of Care Document ---
:1975 External Reference #:[id number] Author Name Joi Alston Care Team Providers Name Role Phone Dominga Hutchins MD Primary Care Physician Unavailable Payers Date Identification Numbers Payment Provider Subscriber Effective: 2018 Policy Number: [id number] Sixto Tran PayID: [id number] [address] [place] [address] Advance Directives Description No Information Available Problems Date Description Provider Status Onset: 11/23/2018 Closed fracture of lateral malleolus Lars Carrasco MD Active Family History Date Family Member(s) Observation Comments General Hypertension General Rheumatoid Arthritis Social History Type Date Description Comments Sex Unknown Lives With Alone Occupation odd jobs ETOH Use Currently consumes alcohol daily Tobacco Use Start: Unknown End: Patient is a former smoker Unknown Smoking Status Reviewed: 11/23/18 Patient is a former smoker Exercise Type/Frequency Does not exercise Allergies, Adverse Reactions, Alerts Description No Known Drug Allergies Medications Medication Date Status Form Strength Qnty SIG Indications Ordering Provider Ibuprofen 0 Active Unknown 000 No Active Hx Unknown Medications 019 - 019 Atenolol Hx Tablets 100mg 90tabs Take 1 Kaila 012 - Tablet By James Rodriguez, Mouth FACP 019 Once Daily Immunizations Description No Information Available Vital Signs Date Vital Result Comment 11/23/2018 1:34pm Height 67.75 inches 5'7.75" Weight 278.00 lb Heart Rate 96 /min BP Systolic 126 mmHg BP Diastolic 80 mmHg Pain Level 6 BMI (Body Mass Index) 42.6 kg/m2 Results Description No Information Available Procedures Date Code Description Status 12/24/2010 23137 EKG, Interpretation Only Completed Encounters Type Date Location Provider Dx Diagnosis Office Visit 05/31/2017 [facility] Elliot Watson, R42 Dizziness and 9:34a M.D. giddiness F10.129 Alcohol abuse with intoxication, unspecified Office Visit 05/31/2017 [facility] Mi Tovar F10.920 Alcohol use, 3:10p Assoc,jhonatan Calero N.PDuncan unspecified with Hospitalists intoxication, uncomplicated R42 Dizziness and giddiness Z86.711 Personal history of pulmonary embolism Office Visit 05/30/2017 [facility] Aminah F10.920 Alcohol use, 3:09p Assoc,jhonatan Person M.D. unspecified with Hospitalists intoxication, uncomplicated R42 Dizziness and giddiness Z86.711 Personal history of pulmonary embolism Plan of Treatment Future Appointment(s):12/24/2018 1:15 pm - Lars Carrasco MD at [facility].11/23/2018 - Lars Carrasco, [id number] Nondisplaced fracture of lateral malleolus of right fibula,New Xrays:Ankle Right 3+VWS, Ordered: 11/23Follow up:Follow Up: 4 weeks
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
[2018-12-17] MEDS ORDERED: Aspirin 81 mg CHEW TAB* 81 MG TAB.CHEW PO ONE (00:23)
[2018-12-17] MEDS ORDERED: Thiamine IV* 100 MG, Folic Acid IV* 1 MG, Multiple Vitamin IV ADULT* 10 ML in NS 0.9% 1... IV ONE (00:25)
[2018-12-17] MEDS ORDERED: Metoclopramide IV* 5 MG/ML 2 ML VIAL IV SLOW PU ONE (00:26)
[2018-12-17] MEDS ORDERED: Morphine 4 MG/ML VIAL (1 ml) 4 MG/ML VIAL IV ONE (00:26)
[2018-12-17 00:31] LABS: ABS Basophils 0.1 10^3/ul (0-0.2); ABS Eosinophils 0.2 10^3/ul (0-0.6); ABS Lymphocytes 1.9 10^3/ul (1.0-4.8); ABS Monocytes 0.6 10^3/ul (0-0.8); ABS Neutrophils 3.1 10^3/ul (1.5-7.7); ABS Nucleated RBC 0 10^3/ul; Eosinophil % 2.6 %; Hematocrit 45 % (36-46); Hemoglobin 15.5 g/dL (14.0-18.0); Lymphocyte % 33.4 %; Mean Corpuscular HGB Conc 35 g/dL (31-36); Mean Corpuscular Hemoglobin 32 pg (27-31); Mean Corpuscular Volume 93 fL (80-94); Mean Platelet Volume 6.7 fL (7.4-10.4); Nucleated Red Blood Cells % 0.1; Platelet Count 197 10^3/uL (150-450); Red Blood Count 4.83 10^6 /uL (4.18-5.48); Red Cell Distribution Width 13 % (10.5-15); White Blood Count 5.8 10^3/uL (3.5-10.8)
[2018-12-17 00:40] LABS: Activated Partial Thrombo Time 31.8 seconds (26.0-36.3); INR 0.94 (0.77-1.02)
[2018-12-17 00:45] LABS: Albumin/Globulin Ratio 1.3 (1-3); Calcium 8.7 mg/dL (8.6-10.3); EGFR African American 176.3 (>60); EGFR Non-African American 145.7 (>60); Globulin 3.1 g/dL (2-4); Magnesium 2.3 mg/dL (1.9-2.7); Potassium 3.4 mmol/L (3.5-5.0); Total Bilirubin 0.4 mg/dL (0.2-1.0); Total Protein 7.1 g/dL (6.4-8.9)
[2018-12-17] MEDS ORDERED: Folic Acid IV* 1 MG, Multiple Vitamin IV ADULT* 10 ML in NS 0.9% 1000 ML** 1,000 ML IV ONE ×4 (00:45)
[2018-12-17 00:47] LABS: Troponin I 0.01 ng/mL (<0.04)
[2018-12-17] MEDS ORDERED: Iohexol 350* (CONTRAST) 500 ML MDV IV ONE (00:59)
[2018-12-17] MEDS ORDERED: Thiamine TAB* 100 MG TAB PO ONE (01:09)
[2018-12-17] MEDS ORDERED: Thiamine TAB* 100 MG TAB ONE (01:11)
[2018-12-17] MEDS ORDERED: Potassium Chlor TAB* 20 MEQ TAB.ER PO ONE (02:32)
[2018-12-17 06:52] VITALS: BP 102/67
== END 2018-12-17 06:57 | disposition home or self-care (01) ==
LOC: ED 23:31
DX: F10.129 Alcohol abuse with intoxication, unspecified (principal); R07.9 Chest pain, unspecified; R50.9 Fever, unspecified; R06.02 Shortness of breath; R60.9 Edema, unspecified; Z79.01 Long term (current) use of anticoagulants; I10 Essential (primary) hypertension; Z87.891 Personal history of nicotine dependence; E66.01 Morbid (severe) obesity due to excess calories; Z87.81 Personal history of (healed) traumatic fracture
CPT/HCPCS: 36415; 71045; 71275; 74177; 80053; 80320; 82550; 83735; 83880; 84484; 85025; 85379; 85610; 85730; 93005; 96365; 96366; 96375; 99283; A9270-GY; G0480; J2270; J2765; J3411; Q9967

== ENCOUNTER 2019-01-08 13:50 | Emergency (ER) | payer OTHER ==
[2019-01-08 13:59] VITALS: BP 124/76
--- OUTSIDE RECORDS SUMMARY | 2019-01-08 14:13 | XMS REPORT | Continuity of Care Document ---
:1975 External Reference #:[id number] Author Name Angelita Frye Care Team Providers Name Role Phone Dominga Hutchins MD Primary Care Physician Unavailable Payers Date Identification Numbers Payment Provider Subscriber Effective: 2018 Policy Number: [id number] Sixto Tran PayID: [id number] [address] [place] [address] Advance Directives Description No Information Available Problems [...] a former smoker Unknown Smoking Status Reviewed: 12/24/18 Patient is a former smoker Exercise Type/Frequency [...] Available Vital Signs Date Vital Result Comment 12/24/2018 1:15pm Height 67.75 inches 5'7.75" Weight 270.00 lb Heart Rate 84 /min Respiratory Rate 18 /min Pain Level 6 BMI (Body Mass Index) 41.4 kg/m2 11/23/2018 1:34pm Height 67.75 inches 5'7.75" Weight 278.00 lb Heart Rate 96 /min BP Systolic 126 mmHg BP Diastolic 80 mmHg Pain Level 6 BMI (Body Mass Index) 42.6 kg/m2 Results Description No Information Available Procedures Date Code Description Status 12/24/2010 31533 EKG, Interpretation Only Completed Encounters Type Date Location Provider Dx Diagnosis Office Visit 11/23/2018 [facility] MD S82.64xD Nondisp fx of 1:30p C.M.A. lateral malleolus of r fibula, 7thD Office Visit 05/31/2017 [facility] Elliot Watson, R42 Dizziness and 9:34a Clinic M.DDuncan giddiness F10.129 Alcohol abuse with intoxication, unspecified Office Visit 05/31/2017 [facility] S. F10.920 Alcohol use, 3:10p Assoc,jhonatan Calero, N.P. unspecified with Hospitalists intoxication, uncomplicated R42 Dizziness and giddiness Z86.711 Personal history of pulmonary embolism Office Visit 05/30/2017 [facility] Aminah F10.920 Alcohol use, 3:09p Assoc,jhonatan Person M.D. unspecified with Hospitalists intoxication, uncomplicated R42 Dizziness and giddiness Z86.711 Personal history of pulmonary embolism Plan of Treatment 12/24/2018 - Lars Carrasco, MDS82.64xA Nondisplaced fracture of lateral malleolus of right fibula,New Xrays:Ankle Right 3+VWS, Ordered: 12/24/18Follow up:Follow Up: As needed
--- NOTE | 2019-01-08 17:53 | ED ---
Throat Pain/Nasal Congestion - HPI Summary HPI Summary: Patient is a 43-year-old male who presents emergency Department to have nasal packing removed. Patient is accompanied advised friend. Patient was reportedly seen at the [facility] emergency department for ongoing epistaxis on Monday, 4 days ago. Patient is not anticoagulated. He was not placed on antibiotics. Patient has had no recurrent bleeding or complaints. Patient attempted to get setup outpatient to have packing removed but was unable to be seen by anybody. Symptoms are mild in severity. No current modifying factors. - History of Current Complaint Chief Complaint: EDGeneral Time Seen by Provider: 01/08/19 14:02 Hx Obtained From: Patient, Family/Body Sander - Allergies/Home Medications Allergies/Adverse Reactions: Allergies Allergy/AdvReac Type Severity Reaction Status Date / Time No Known Allergies Allergy Verified 01/08/19 14:00 PMH/Surg Hx/FS Hx/Imm Hx Previously Healthy: Yes Endocrine/Hematology History: Reports: Hx Anticoagulant Therapy - Xarelto 20mg daily - pt denies today Denies: Hx Diabetes, Hx Thyroid Disease Cardiovascular History: Reports: Hx Hypertension - pt denies today Denies: Hx Pacemaker/ICD Respiratory History: Denies: Hx Asthma, Hx Chronic Obstructive Pulmonary Disease (COPD) History: Denies: Hx Renal Disease Sensory History: Denies: Hx Contacts or Glasses, Hx Hearing Aid Opthamlomology History: Denies: Hx Contacts or Glasses Neurological History: Reports: Hx Seizures - not taking med "I can't afford them " Denies: Hx Dementia Psychiatric History: Reports: Hx of Violent Episodes Against Others, Hx Substance Abuse - alcoholism Denies: Hx Eating Disorder, Hx Panic Disorder - Surgical History Surgery Procedure, Year, and Place: knee surgery as a child Infectious Disease History: No Infectious Disease History: Denies: Hx Hepatitis, Hx Human Immunodeficiency Virus (HIV), Hx of Known/ Suspected MRSA, Hx Known/Suspected VRSA, History Other Infectious Disease, Traveled Outside the [place] in Last 30 Days - Family History Known Family History: Positive: Diabetes, Other - alcohol abuse - father - Social History Occupation: Unemployed Lives: Alone Alcohol Use: Daily Alcohol Amount: 3-4 daily Hx Substance Use: No Substance Use Type: Reports: None Hx Tobacco Use: Yes - not currently Smoking Status (MU): Former Smoker Review of Systems Constitutional: Negative Negative: Fever, Chills Positive: Other - right nasal packing All Other Systems Reviewed And Are Negative: Yes Physical Exam Triage Information Reviewed: Yes Vital Signs On Initial Exam: Initial Vitals Temp Pulse Resp BP Pulse Ox 98.2 F 90 18 124/76 96 01/08/19 13:56 01/08/19 13:56 01/08/19 13:56 01/08/19 13:56 01/08/19 13:56 Vital Signs Reviewed: Yes Appearance: Positive: Well-Appearing - Pt. sitting on bed in NAD. Friend present. Skin: Positive: Warm, Dry Head/Face: Positive: Normal Head/Face Inspection Eyes: Positive: Normal, EOMI, ROX, Conjunctiva Clear ENT: Positive: Other - Nasal packing in right nare without bleeding. Neck: Positive: Supple Neurological: Positive: Normal, CN Intact II-III Psychiatric: Positive: Affect/Mood Appropriate Procedures - Procedure Summary Procedure Summary: Packing removal: 10cc air removed from right rhino rocket. Packing easily removed. No recurrent bleeding. Diagnostics - Vital Signs Vital Signs Temp Pulse Resp BP Pulse Ox 01/08/19 14:54 98.2 F 90 18 124/76 96 01/08/19 13:56 98.2 F 90 18 124/76 96 - Laboratory Lab Statement: Any lab studies that have been ordered have been reviewed, and results considered in the medical decision making process. EENT Course/Dx - Course Course Of Treatment: Patient presenting with packing removal that was performed as above. Patient watched in the ER for about 20 minutes after packing removal and has had no recurrent bleeding. We'll discharge home to follow-up with ENT if needed. Return to the ER if symptoms change or worsen. - Diagnoses Provider Diagnoses: Epistaxis Discharge - Sign-Out/Discharge Documenting (check all that apply): Patient Departure Patient Received Moderate/Deep Sedation with Procedure: No - Discharge Plan Condition: Good Disposition: HOME Patient Education Materials: Nosebleed (ED) Referrals: Leroy Wallace MD [Medical Doctor] - Additional Instructions: Follow up with ENT if needed, otherwise follow up with your new PCP as scheduled Hold pressure to nose if bleeding returns Return to ER if symptoms change or worsen - Billing Disposition and Condition Condition: GOOD Disposition: Home
== END 2019-01-08 14:54 | disposition home or self-care (01) ==
LOC: ED 13:50
DX: R04.0 Epistaxis (principal); Z91.19 Patient's noncompliance with other medical treatment and regimen; Z79.01 Long term (current) use of anticoagulants; I10 Essential (primary) hypertension
CPT/HCPCS: 99281

== ENCOUNTER 2019-05-23 15:27 | Inpatient (IN) | payer OTHER ==
[2019-05-23 16:43] LABS: ABS Eosinophils 0.1 10^3/ul (0-0.6); ABS Lymphocytes 0.9 10^3/ul (1.0-4.8); ABS Monocytes 0.5 10^3/ul (0-0.8); ABS Neutrophils 3.2 10^3/ul (1.5-7.7); Eosinophil % 1.9 %; Hematocrit 45 % (42-52); Hemoglobin 15.6 g/dL (14.0-18.0); Lymphocyte % 19.1 %; Mean Corpuscular HGB Conc 35 g/dL (31-36); Mean Corpuscular Hemoglobin 33 pg (27-31); Mean Corpuscular Volume 94 fL (80-94); Mean Platelet Volume 7.3 fL (7.4-10.4); Platelet Count 107 10^3/uL (150-450); Red Blood Count 4.74 10^6 /uL (4.18-5.48); Red Cell Distribution Width 13 % (10-15); White Blood Count 4.6 10^3/uL (3.5-10.8)
[2019-05-23 16:48] LABS: INR 1.05 (0.82-1.09)
[2019-05-23 17:03] LABS: Albumin 4.1 g/dL (3.2-5.2); Albumin/Globulin Ratio 1.2 (1-3); BUN/Creatinine Ratio 9.6 (8-20); Calcium 8.7 mg/dL (8.6-10.3); EGFR Non-African American 171.1 (>60); Globulin 3.3 g/dL (2-4); Magnesium 1.9 mg/dL (1.9-2.7); Potassium 3.4 mmol/L (3.5-5.0); Total Bilirubin 0.6 mg/dL (0.2-1.0); Total Protein 7.4 g/dL (6.4-8.9)
--- OUTSIDE RECORDS SUMMARY | 2019-05-23 17:26 | XMS REPORT | Summary of Care ---
:1975 Author Organization [facility] Address [address] [facility] [place] [address] Care Team Providers Name Role Phone Tommy Pope DO Primary Care Provider Reason for Visit Reason Comments Chest Wall Pain c/o chest when hyper extend outward hurts;; Leg Pain increased swelling on right leg with some redness and warm to touch Encounter Details Date Type Department Care Team Description 05/23/2019 Office Visit [facility] Tommy Pope DO Chest pain, pleuritic (Primary Dx); Practice [address] [facility] Right leg swelling [address] [place] [address] [place] [address] [phone] Allergies No Known Allergiesdocumented as of this encounter (statuses as of 05/23/2019) Medications Medication Sig Dispensed Refills Start Date End Date Status thiamine (VITAMIN B1) Take 1 Tab by 90 Tab 1 01/10/2019 Active 100 MG Oral mouth DAILY. TabIndications: Alcohol use disorder, moderate, dependence (HCC) documented as of this encounter (statuses as of 05/23/2019) Active Problems No known active problemsdocumented as of this encounter (statuses as of 2018) Social History Tobacco Use Types Packs/Day Years Used Date Never Smoker Smokeless Tobacco: Never Used Alcohol Use Drinks/Week oz/Week Comments Yes Sex Assigned at Date Recorded Not on file Job Start Date Occupation Industry Not on file Not on file Not on file Travel History Travel Start Travel End No recent travel history available. documented as of this encounter Last Filed Vital Signs Vital Sign Reading Time Taken Comments Blood Pressure 136/68 05/23/2019 2:20 PM EDT Pulse 94 05/23/2019 2:20 PM EDT Temperature - - Respiratory Rate - - Oxygen Saturation 94% 05/23/2019 2:20 PM EDT Inhaled Oxygen Concentration - - Weight 132.5 kg (292 lb 3.2 oz) 05/23/2019 2:20 PM EDT Height 174 cm (5' 8.5") 05/23/2019 2:20 PM EDT Body Mass Index 43.78 05/23/2019 2:20 PM EDT documented in this encounter Progress Notes Tommy Pope, DO - 05/23/2019 2:40 PM EDT PATIENT: Andreas Tran : 1975 DATE OF SERVICE: 05/23/2019 CHIEF COMPLAINT: Chief Complaint Patient presents with Chest Wall Pain c/o chest when hyper extend outward hurts;; Leg Pain increased swelling on right leg with some redness and warm to touch Subjective HISTORY OF PRESENT ILLNESS: Andreas Tran is a 44-y.o. male. HPI 44 year old alcoholic here for acute visit with mother, family friend 1 month of right leg swelling (no pain) and 1+ month of pleuritic chest pain with deep breaths Last drink this morning No fevers No dizziness No abdominal pain History reviewed. No pertinent past medical history. History reviewed. No pertinent family history. Current Outpatient Medications Medication Sig thiamine (VITAMIN B1) 100 MG Oral Tab Take 1 Tab by mouth DAILY. No current facility-administered medications for this visit. No Known Allergies Social History Socioeconomic History Marital status: Single Spouse name: Not on file Number of children: Not on file Years of education: Not on file Highest education level: Not on file Occupational History Not on file Social Needs Financial resource strain: Not on file Food insecurity: Worry: Not on file Inability: Not on file Transportation needs: Medical: Not on file Non-medical: Not on file Tobacco Use Smoking status: Never Smoker Smokeless tobacco: Never Used Substance and Sexual Activity Alcohol use: Yes Drug use: Not Currently Sexual activity: Not Currently Lifestyle Physical activity: Days per week: Not on file Minutes per session: Not on file Stress: Not on file Relationships Social connections: Talks on phone: Not on file Gets together: Not on file Attends hindu service: Not on file Active member of club or organization: Not on file Attends meetings of clubs or organizations: Not on file Relationship status: Not on file Intimate partner violence: Fear of current or ex partner: Not on file Emotionally abused: Not on file Physically abused: Not on file Forced sexual activity: Not on file Other Topics Concern Not on file Social History Narrative Not on file REVIEW OF SYSTEMS: Review of Systems Constitutional: Negative for chills and diaphoresis. Cardiovascular: Negative for palpitations. Gastrointestinal: Negative for diarrhea. Objective PHYSICAL EXAM: VITALS: BP 136/68 (BP Location: Left arm, Patient Position: Sitting) | Pulse 94 | Ht 5' 8.5" (1.74 m) | Wt 292 lb 3.2 oz (132.5 kg) | SpO2 94% | BMI 43.78 kg/m Body mass index is 43.78 kg/m. Physical Exam Constitutional: He appears well-developed and well-nourished. HENT: Head: Normocephalic and atraumatic. Cardiovascular: Normal rate and regular rhythm. Right leg markedly swollen compared to left with some pitting edema. No signs of infection Pulmonary/Chest: Effort normal and breath sounds normal. ASSESSMENT / IMPRESSION: ICD-9-CM ICD-10-CM 1. Chest pain, pleuritic 786.52 R07.81 2. Right leg swelling 729.81 M79.89 Plan Symptoms concerning for DVT and PE. Vitals stable No distress He agreed reluctantly to go ER with family in private car immediately Informed attending physician at [facility] Author: Tommy Pope DO 05/23/2019 14:59 documented in this encounter Plan of Treatment Health Maintenance Due Date Last Done Comments DEPRESSION SCREENING 1985 HIV SCREENING 02/08/1988 LIPID DISORDER SCREENING 1991 INFLUENZA VACCINE (#1) 2019 DIABETES SCREENING 01/11/2020 01/10/2019 HPV IMMUNIZATION SERIES Aged Out No longer eligible based on patient's age to complete this topic MENINGOCOCCAL VACCINE IMM Aged Out No longer eligible based on patient's age to complete this topic PNEUMOCOCCAL 0-64 YRS Aged Out No longer eligible based on patient's age to complete this topic documented as of this encounter Results Not on filedocumented in this encounter Visit Diagnoses Diagnosis Chest pain, pleuritic - Primary Painful respiration Right leg swelling documented in this encounter Insurance Payer Benefit Plan / Subscriber ID Effective Dates Phone Address Type Group [facility] [facility] xxxxxxxxxxx 2018-Present Sixto Guarantor Name Account Type Relation to Date of Phone Billing Patient Address Andreas Tran Personal/Family Self 1975 [address] (Home) [place] [address] documented as of this encounter
[2019-05-23] MEDS ORDERED: Iohexol 350* (CONTRAST) 500 ML MDV IV ONE (17:28)
--- NOTE | 2019-05-23 17:33 | ED ---
Progress - Progress Note Progress Note: Receiving sign out from Gayla OLIVEIRA awaiting results CTA of chest to r/o PE. 44 yo male presents to the ED from PCP. Initially he was sent due to right leg swelling for r/o DVT, but then pt began complaining of midsternal chest pain that is worse with taking deep breaths for the last 4 days. Denies any cardiac or pulmonary history - but looking back at his visits in [facility], it appears he has had a PE in the past. Denies hematemesis or hemoptysis, cough or congestion. Symptoms are not worse or better with positioning. He states the pain is a burning sensation. Denies any abdominal pain. History of right fibular fracture approximately 9-12 months ago. GENERAL: NAD. WDWN. No pain distress. SKIN: No rashes, sores, lesions, or open wounds. NECK: Supple. Nontender. No lymphadenopathy. CHEST: CTAB. No r/r/w. No accessory muscle use. Breathing comfortably and in no distress. CV: RRR. Without m/r/g. Pulses intact. Cap refill <2seconds ABDOMEN: Soft. NTTP. No distention or guarding. No organomegaly. No CVA tenderness. Bowel sounds present NEURO: Alert. PSYCH: Age appropriate behavior. Course/Dx - Course Course Of Treatment: CTA:IMPRESSION: 1. There are a few central filling defects within segmental branches of the right lower lobe pulmonary artery consistent with acute pulmonary embolism. No central saddle embolus. 2. There may be pulmonary arterial hypertension. 3. No evidence for right ventricular strain. 4. No aortic dissection. Given pt's homelessness and lack of reliable follow up care - I consulted the hospitalist for admission and pt was accepted. - Diagnoses Provider Diagnoses: Pulmonary embolism - Provider Notifications Discussed Care Of Patient With: Wesley Contreras Instructed by Provider To: Admit As Inpatient Discharge ED - Sign-Out/Discharge Documenting (check all that apply): Receiving Sign-Out Receiving patient FROM: Gayla Rosado - Discharge Plan Condition: Stable Disposition: ADMITTED TO [facility] Referrals: No Primary Care Phys,NOPCP [Primary Care Provider] - - Billing Disposition and Condition Condition: STABLE Disposition: Admitted to [facility] - Attestation Statements Provider Attestation: I was available for consult. This patient was seen by the KYLE. The patient was not presented to, seen by, or examined by me. Blaine Hernandez MD
--- NOTE | 2019-05-23 17:34 | ED ---
HPI Cardiac - HPI Summary HPI Summary: Patient is a 44yo M presenting to the ED from Dr. Castillo's office stating he has had right lower extremity swelling without pain or erythema times approximately 2-3 weeks. He is also endorsing midsternal chest pain which has been nonradiating with associated shortness of breath, worse with taking deep breaths 4 days. According to note, patient is homeless and an alcoholic. He does have a friend at bedside. He denies taking any medications other than B1 vitamin. Denies any cardiac or pulmonary history. Denies hx of PE or DVT. Denies hematemesis or hemoptysis, cough or congestion. Symptoms are not worse or better with positioning. He states the pain is a burning sensation. Denies any abdominal pain. Continues to eat and drink well. Denies any fevers, sweats , chills. History of fibular fracture to the ipsilateral side, right leg, approximately 9- 12 months ago. Patient is unable to recall. - History of Current Complaint Chief Complaint: EDExtremityLower Stated Complaint: RIGHT LEG SWOLLEN PER PT Time Seen by Provider: 05/23/19 15:36 Hx Obtained From: Patient Onset/Duration: Started Days Ago Timing: Constant Initial Severity: Moderate Current Severity: Moderate Pain Intensity: 0 Pain Scale Used: 0-10 Numeric Chest Pain Location: Mid Sternal Chest Pain Radiates: No Aggravating Factor(s): Nothing Alleviating Factor(s): Nothing Associated Signs and Symptoms: Positive: Negative - Risk Factors Pulmonary Embolism Risk Factors: Negative Atrial Fibrillation Risk Factors: Alcohol Abuse Tuberculosis Risk Factors: Alcohol Abuse - Additional Pertinent History Primary Care Physician: ARIANNA - Allergy/Home Medications Allergies/Adverse Reactions: Allergies Allergy/AdvReac Type Severity Reaction Status Date / Time No Known Allergies Allergy Verified 05/23/19 15:33 Home Medications: Home Medications Thiamine TAB* [Vitamin B-1 TAB 100 MG*] 100 mg PO DAILY 05/23/19 [History Confirmed 05/23/19] PMH/Surg Hx/FS Hx/Imm Hx Previously Healthy: Yes Endocrine/Hematology History: Reports: Hx Anticoagulant Therapy - Xarelto 20mg daily - pt denies today Denies: Hx Diabetes, Hx Thyroid Disease Cardiovascular History: Reports: Hx Hypertension - pt denies today Denies: Hx Pacemaker/ICD Respiratory History: Denies: Hx Asthma, Hx Chronic Obstructive Pulmonary Disease (COPD) History: Denies: Hx Renal Disease Sensory History: Denies: Hx Contacts or Glasses Opthamlomology History: Denies: Hx Contacts or Glasses Neurological History: Reports: Hx Seizures - not taking med "I can't afford them " Denies: Hx Dementia Psychiatric History: Reports: Hx of Violent Episodes Against Others, Hx Substance Abuse - alcoholism Denies: Hx Eating Disorder, Hx Panic Disorder - Surgical History Surgery Procedure, Year, and Place: knee surgery as a child - Immunization History Hx Pertussis Vaccination: No Immunizations Up to Date: Yes Infectious Disease History: No Infectious Disease History: Denies: Hx Hepatitis, Hx Human Immunodeficiency Virus (HIV), Hx of Known/ Suspected MRSA, Hx Known/Suspected VRSA, History Other Infectious Disease, Traveled Outside the [place] in Last 30 Days - Family History Known Family History: Positive: Diabetes, Other - alcohol abuse - father - Social History Occupation: Unemployed Lives: With Family Alcohol Use: Daily Alcohol Amount: 3-4 daily beers Hx Substance Use: No Substance Use Type: Reports: None Hx Tobacco Use: Yes - not currently Smoking Status (MU): Former Smoker Review of Systems Constitutional: Negative Negative: Fever, Chills, Fatigue, Skin Diaphoresis Positive: Chest Pain. Negative: Palpitations Positive: Shortness Of Breath. Negative: Cough Negative: Abdominal Pain Positive: no symptoms reported, see HPI Positive: Edema - swelling of the R lower ext. Negative: Arthralgia, Myalgia Skin: Negative All Other Systems Reviewed And Are Negative: Yes Physical Exam Triage Information Reviewed: Yes Vital Signs On Initial Exam: Initial Vitals Temp Pulse Resp BP Pulse Ox 98.2 F 90 20 143/94 95 05/23/19 15:33 05/23/19 15:33 05/23/19 15:33 05/23/19 15:33 05/23/19 15:33 Vital Signs Reviewed: Yes Appearance: Positive: No Pain Distress - patient appears disheveled Skin: Positive: Warm, Skin Color Reflects Adequate Perfusion Head/Face: Positive: Normal Head/Face Inspection Eyes: Positive: EOMI, Conjunctiva Clear Neck: Positive: Supple, No Lymphadenopathy Respiratory/Lung Sounds: Positive: Clear to Auscultation, Breath Sounds Present Cardiovascular: Positive: RRR, Pulses are Symmetrical in both Upper and Lower Extremities, Leg Edema Right Musculoskeletal: Positive: Strength/ROM Intact Neurological: Positive: Sensory/Motor Intact, Alert, Oriented to Person Place, Time AVPU Assessment: Alert Diagnostics - Vital Signs Vital Signs Temp Pulse Resp BP Pulse Ox 05/23/19 16:52 95 05/23/19 16:50 94 19 140/94 94 05/23/19 15:33 98.2 F 90 20 143/94 95 - Laboratory Lab Results: Lab Results 05/23/19 05/23/19 05/23/19 Range/Units 16:31 16:31 16:31 WBC 4.6 (3.5-10.8) 10^3/uL RBC 4.74 (4.18-5.48) 10^6 /uL Hgb 15.6 (14.0-18.0) g/dL Hct 45 (42-52) % MCV 94 (80-94) fL MCH 33 H (27-31) pg MCHC 35 (31-36) g/dL RDW 13 (10-15) % Plt Count 107 L (150-450) 10^3/uL MPV 7.3 L (7.4-10.4) fL Neut % (Auto) 68.3 % Lymph % (Auto) 19.1 % Williams % (Auto) 10.4 % Eos % (Auto) 1.9 % Baso % (Auto) 0.3 % Absolute Neuts (auto) 3.2 (1.5-7.7) 10^3/ul Absolute Lymphs (auto) 0.9 L (1.0-4.8) 10^3/ul Absolute Monos (auto) 0.5 (0-0.8) 10^3/ul Absolute Eos (auto) 0.1 (0-0.6) 10^3/ul Absolute Basos (auto) 0.0 (0-0.2) 10^3/ul Absolute Nucleated RBC 0.0 10^3/ul Nucleated RBC % 0.0 INR (Anticoag Therapy) 1.05 (0.82-1.09) Sodium 138 (135-145) mmol/L Potassium 3.4 L (3.5-5.0) mmol/L Chloride 104 (101-111) mmol/L Carbon Dioxide 25 (22-32) mmol/L Anion Gap 9 (2-11) mmol/L BUN 5 L (6-24) mg/dL Creatinine 0.52 L (0.67-1.17) mg/dL Est GFR ( Amer) 207.0 (>60) Est GFR (Non-Af Amer) 171.1 (>60) BUN/Creatinine Ratio 9.6 (8-20) Glucose 115 H (70-100) mg/dL Lactic Acid (0.5-2.0) mmol/L Calcium 8.7 (8.6-10.3) mg/dL Magnesium 1.9 (1.9-2.7) mg/dL Total Bilirubin 0.60 (0.2-1.0) mg/dL AST 101 H (13-39) U/L ALT 59 H (7-52) U/L Alkaline Phosphatase 93 (34-104) U/L Troponin I 0.00 (<0.04) ng/mL Total Protein 7.4 (6.4-8.9) g/dL Albumin 4.1 (3.2-5.2) g/dL Globulin 3.3 (2-4) g/dL Albumin/Globulin Ratio 1.2 (1-3) 05/23/19 Range/Units 16:31 WBC (3.5-10.8) 10^3/uL RBC (4.18-5.48) 10^6 /uL Hgb (14.0-18.0) g/dL Hct (42-52) % MCV (80-94) fL MCH (27-31) pg MCHC (31-36) g/dL RDW (10-15) % Plt Count (150-450) 10^3/uL MPV (7.4-10.4) fL Neut % (Auto) % Lymph % (Auto) % Williams % (Auto) % Eos % (Auto) % Baso % (Auto) % Absolute Neuts (auto) (1.5-7.7) 10^3/ul Absolute Lymphs (auto) (1.0-4.8) 10^3/ul Absolute Monos (auto) (0-0.8) 10^3/ul Absolute Eos (auto) (0-0.6) 10^3/ul Absolute Basos (auto) (0-0.2) 10^3/ul Absolute Nucleated RBC 10^3/ul Nucleated RBC % INR (Anticoag Therapy) (0.82-1.09) Sodium (135-145) mmol/L Potassium (3.5-5.0) mmol/L Chloride (101-111) mmol/L Carbon Dioxide (22-32) mmol/L Anion Gap (2-11) mmol/L BUN (6-24) mg/dL Creatinine (0.67-1.17) mg/dL Est GFR ( Amer) (>60) Est GFR (Non-Af Amer) (>60) BUN/Creatinine Ratio (8-20) Glucose (70-100) mg/dL Lactic Acid 1.4 (0.5-2.0) mmol/L Calcium (8.6-10.3) mg/dL Magnesium (1.9-2.7) mg/dL Total Bilirubin (0.2-1.0) mg/dL AST (13-39) U/L ALT (7-52) U/L Alkaline Phosphatase (34-104) U/L Troponin I (<0.04) ng/mL Total Protein (6.4-8.9) g/dL Albumin (3.2-5.2) g/dL Globulin (2-4) g/dL Albumin/Globulin Ratio (1-3) Result Diagrams: 05/24/19 05:26 05/24/19 05:26 Lab Statement: Any lab studies that have been ordered have been reviewed, and results considered in the medical decision making process. Disposition - Course Course Of Treatment: During his course of treatment the patient is evaluated for mid sternal chest pain which is been present 4 days which he describes as a burning. He states this is worse with deep breaths. He is also endorsing some right leg swelling without pain or erythema. This is been present times approximately one month. He was sent from PCP office. On physical examination , patient appears disheveled. Patient is a poor historian. DVT US obtained which is a limited study but no findings of DVT. Labs obtained which are fairly unremarkable including a troponin of 0.00. CTA was ordered due to the midsternal chest pain associated with shortness of breath to rule out PE. This is pending, patient is signed out to Bandar Miller PA-C. - Differential Dx - Cardiopulmonary Differential Diagnoses - Cardiopulmonary: Other - DVT, chest pain, SOB - Diagnoses Provider Diagnoses: Pulmonary embolism Discharge ED - Sign-Out/Discharge Documenting (check all that apply): Patient Departure All imaging exams completed and their final reports reviewed: Yes Patient Received Moderate/Deep Sedation with Procedure: No - Discharge Plan Condition: Stable Disposition: ADMITTED TO [facility] - Billing Disposition and Condition Condition: STABLE Disposition: Admitted to [facility] - Attestation Statements Provider Attestation: I was available for consult. This patient was seen by the KYLE. The patient was not presented to, seen by, or examined by me. Blaine Hernandez MD
[2019-05-23] MEDS ORDERED: Potassium Chlor TAB* 20 MEQ TAB.ER PO ONE (20:39)
[2019-05-23] MEDS ORDERED: Thiamine INJ* 100 MG, Folic Acid IV* 1 MG, Multiple Vitamin IV ADULT* 10 ML in NS 0.9% ... IV ONE (21:20)
[2019-05-23] MEDS ORDERED: NS 0.9% 1000 ML** 1,000 ML ONE (21:32)
[2019-05-23] MEDS ORDERED: Lorazepam PYXIS KEY PRN (21:50)
[2019-05-23] MEDS ORDERED: LORazepam INJ* 2 MG/ML 1 ML VIAL IV PUSH SCH (22:00)
[2019-05-23] MEDS: Pantoprazole TAB * 40 MG TAB PO SCH (22:17)
[2019-05-23] MEDS ORDERED: LORazepam TAB(*) 1 MG PO ONE (22:26)
[2019-05-23] MEDS ORDERED: LORazepam TAB(*) 1 MG PO SCH (23:00)
[2019-05-23] MEDS: Rivaroxaban TAB(*) 15 MG PO SCH (23:45)
--- NOTE | 2019-05-24 01:07 | HP ---
CC: Dr Pope * HISTORY AND PHYSICAL: DATE OF ADMISSION: 05/23/19 PROVIDER: Tamika Bustos NP. PRIMARY CARE PROVIDER: Dr. Pope. ATTENDING PHYSICIAN WHILE IN THE HOSPITAL: Wesley Contreras MD * (dictated by Tamika Bustos NP). CHIEF COMPLAINT: 1. Right leg swelling. 2. Shortness of breath. HISTORY OF PRESENT ILLNESS: Mr. Tran is a 44-year-old male with a past medical history significant for alcohol abuse, history of PE/DVT; provoked after having a broken ankle per the patient, and history of alcohol withdrawal seizures who presented to the emergency room from Dr. Pope's office with complaints of right leg swelling x2 weeks and shortness of breath 2 weeks, worse with exertion. The patient reports that he has had right leg swelling for the past 2 weeks that has progressively become worse. He denies any pain in the leg. He denies any calf tenderness. He reports that he has also been short of breath and that he has to take breaks due to his shortness of breath. The patient also reports that he is an alcoholic. He reports that he wakes up at 7 o'clock in the morning and starts drinking on a daily basis. The patient reports that he drinks alcohol based on how much money he has available to buy alcohol. He does report that he drinks six-plus 24-ounce cans of beer daily. The patient reports that he has been to rehab many times and reports, "I do not want to go back to rehab again." The patient denies any injury and denies any injuries to his lower extremities. He does report that he has had chills on and off for a month. Denies any fevers. He denies any chest pain. He does complain of right lower leg edema. Denies any cough or hemoptysis. He does report exertional shortness of breath x2 weeks. He does report some nausea. No vomiting. No diarrhea. Denies any abdominal pain. No gross hematuria or dysuria. The patient does report that he has not been eating for 2 weeks as he reports "he is trying to lose weight. He denies any focal weakness, sensory loss, visual complaints, or difficulty swallowing. He denies any open sores or lesions. He does complain of some redness and irritation to his right posterior ankle and mild redness to his right mitchell. He denies any psychosis or anxiety. While in the emergency room, the patient had routine lab work drawn and a venous ultrasound of the right lower extremity that did not show any DVT. He did have a CTA of the chest that showed pulmonary embolism. Due to the finding of pulmonary embolism, Hospital Medicine was asked to see and evaluate for admission. PAST MEDICAL HISTORY: Significant for alcohol abuse, history of PE and DVT; provoked after having a right ankle fracture per the patient, history of alcohol withdrawal seizures. PAST SURGICAL HISTORY: Right elbow surgery after a fracture. HOME MEDICATIONS: Include thiamine 100 mg p.o. daily. ALLERGIES: No known drug allergies. FAMILY HISTORY: Unknown. SOCIAL HISTORY: The patient denies any tobacco or illicit drug use. The patent does report he drinks daily alcohol. He drinks six-plus 24-ounce cans of beers daily. He is homeless. He does report that he sleeps in hallways here and there. Surrogate decision maker in the event he is unable to make his own decisions is his mother. He is a full code. REVIEW OF SYSTEMS: A 14-point review of systems was completed. All pertinent positives were mentioned in the HPI. PHYSICAL EXAMINATION GENERAL: At this time, Mr. Tran is a 44-year-old male. He is resting on the stretcher in the emergency room. He is alert and oriented x3. He does have some minor hand tremors. VITAL SIGNS: Blood pressure 143/91, heart rate 90, respirations are 19, O2 saturation 95%, temperature was 98.2. HEENT: Head is atraumatic normocephalic. Eyes: EOMs are intact. Sclerae anicteric and not pale. Oral mucosa appeared to be moist. NECK: Supple. LUNGS: Clear to auscultation bilaterally. No wheezes, rales, or rhonchi. CARDIAC: S1, S2. Regular rate and rhythm. No murmurs, rubs, or gallops. ABDOMEN: Obese, soft, nontender. Bowel sounds are active x4. EXTREMITIES: He is able to move all 4 extremities. Pedal pulses are +2 bilaterally. He does have some redness noted to his Achilles area and redness noted to his mitchell that is warm to touch, but no open lesions noted. NEUROLOGIC: He is awake. He is alert and oriented x3. Speech is clear. Thought process is intact. There are no gross focal deficits. DIAGNOSTIC STUDIES/LAB DATA: WBCs are 4.6, RBCs 4.74, hemoglobin 15.6, hematocrit is 45, platelet count 107. INR is 1.05. Sodium 138, potassium 3.4, chloride 104, carbon dioxide is 25, anion gap is 9, BUN is 5, creatinine 0.52, glucose is 115, lactic acid 1.4, calcium 8.7, magnesium 1.9. ASTs are 101, ALTs are 59, alkaline phosphatase is 93. Troponin was 0.00 x2. Alcohol was 137. He had a CTA of the chest, radiologist's impression: 1. There are a few central filling defects within the segmental branches of the right lower lobe pulmonary artery consistent with acute pulmonary embolism. No central saddle embolus. 2. There may be pulmonary hypertension. No evidence of right ventricular strain. In the lungs, there is minimal bibasilar and bilateral dependent atelectasis change or scarring. He had a venous Doppler of the right lower extremity, slightly limited exam of the calf. No evidence of deep vein thrombosis. He had an electrocardiogram, which showed sinus rhythm at a rate of 95. ASSESSMENT AND PLAN: Mr. Tran is a 44-year-old male with a past medical history significant for pulmonary embolism/DVT; provoked after right ankle fracture and casting per the patient, alcohol abuse, and alcohol withdrawal seizures. The patent will be admitted for pulmonary embolism. Plan is as follows: 1. Pulmonary embolism. The patient did have a CTA of the chest that showed right pulmonary embolism. He will be placed on Xarelto 15 mg p.o. b.i.d. for 21 days and then decreased to 20 mg p.o. daily. The patient's HAS-BLED score is 1, giving him 3.4 risk of bleed, 1.02 bleeds per 100 patients. He has a low risk of bleeding. 2. Hypokalemia. The patient is hypokalemic. I suspect this is related to his alcohol abuse. I will give him 40 mEq of potassium and repeat a BMP in the a.m. 3. Thrombocytopenia. The patient does have platelet count of 107. The patient does have a history of alcohol abuse. I suspect this is related to his alcohol abuse. 4. Alcohol abuse. I will place the patient on [facility] protocol with Ativan as needed for withdrawal symptoms. I will give him 1 mg of Ativan now as he currently has hand tremors and is anxious and restless in the bed. 5. FEN. He can have a regular diet. 6. Code status. He is a full code. 7. DVT prophylaxis. He will be on Xarelto. 8. Disposition. The patient will be placed on [address] [place] [id number] Telemetry. TIME SPENT: Time spent on this admission was 60 minutes, greater than half that time was spent at the bedside reviewing events leading thus far to his hospitalization, performing physical exam, and reviewing my plan of care. I have discussed this with my attending, Dr Wesley Contreras; he is in agreement with my plan. TAMIKA BUSTOS, RONY [id number]/[facility] #: [id number] MEMO
[2019-05-24] MEDS: Acetaminophen TAB* 325 MG PO PRN (02:21)
[2019-05-24] MEDS: Ondansetron INJ* 2 MG/ML VIAL IV PRN ×2 (02:22→08:55)
[2019-05-24 06:01] LABS: ABS Eosinophils 0.1 10^3/ul (0-0.6); ABS Lymphocytes 0.8 10^3/ul (1.0-4.8); ABS Monocytes 0.5 10^3/ul (0-0.8); Eosinophil % 1.7 %; Hematocrit 44 % (42-52); Hemoglobin 15.5 g/dL (14.0-18.0); Lymphocyte % 14.3 %; Mean Corpuscular HGB Conc 35 g/dL (31-36); Mean Corpuscular Hemoglobin 33 pg (27-31); Mean Corpuscular Volume 94 fL (80-94); Mean Platelet Volume 7.5 fL (7.4-10.4); Nucleated Red Blood Cells % 0.1; Platelet Count 100 10^3/uL (150-450); Red Blood Count 4.71 10^6 /uL (4.18-5.48); Red Cell Distribution Width 13 % (10-15); White Blood Count 5.4 10^3/uL (3.5-10.8)
[2019-05-24 06:19] LABS: Albumin 3.7 g/dL (3.2-5.2); Albumin/Globulin Ratio 1.2 (1-3); BUN/Creatinine Ratio 9.4 (8-20); Calcium 8.1 mg/dL (8.6-10.3); EGFR African American 202.5 (>60); EGFR Non-African American 167.4 (>60); Globulin 3.2 g/dL (2-4); Potassium 3.5 mmol/L (3.5-5.0); Total Bilirubin 0.9 mg/dL (0.2-1.0); Total Protein 6.9 g/dL (6.4-8.9)
[2019-05-24] MEDS: Rivaroxaban TAB(*) 15 MG PO SCH ×2 (08:54→20:22)
[2019-05-24] MEDS: Folic Acid TAB* 1 MG PO SCH (08:54)
[2019-05-24] MEDS: Pantoprazole TAB * 40 MG TAB PO SCH (08:54)
[2019-05-24] MEDS: Thiamine TAB* 100 MG TAB PO SCH (08:55)
[2019-05-24] MEDS: Multivitamins/Minerals TAB PO SCH (08:55)
[2019-05-24] MEDS: Morphine INJ* 2 MG/ML 1 ML SYRINGE (TWO MG - NEW SYRINGE VERSION) IV PRN (08:55)
--- NOTE | 2019-05-24 14:56 | PN ---
Subjective Date of Service: 05/24/19 Interval History: Mr. Tran is not feeling well today. He just came back from the bathroom and is quite SOB after ambulating about 15 ft. Consistent midsternal CP which is worse with inspiration and palpation. He confirms that he is homeless and has been sleeping "here and there." Not feeling anxious. Nursing concerned about his ability to obtain medications and f/u after d/c. Family History: Unchanged from Admission Social History: Unchanged from Admission Past Medical History: Unchanged from Admission Objective Active Medications: Acetaminophen (Tylenol Tab*) 650 mg PO Q4H PRN MILD PAIN or TEMP > 100.4 Folic Acid (Folvite Tab*) 1 mg PO DAILY [facility] Lorazepam (Ativan Tab(*)) 0 - 6 mg PO .PER [facility] PROTOCOL CARA; Protocol Morphine Sulfate (Morphine Inj (Syringe))*) 2 mg IV Q4H PRN PAIN - SEVERE Multivitamins/Minerals (Theragran/Minerals Tab*) 1 tab PO DAILY [facility] Ondansetron HCl (Zofran Inj*) 4 mg IV Q6H PRN NAUSEA Pantoprazole Sodium (Protonix Tab*) 40 mg PO DAILY [facility] Rivaroxaban (Xarelto(*)) 15 mg PO BID [facility] Thiamine HCl (Vitamin B-1 Tab*) 100 mg PO DAILY [facility] Vital Signs - 8 hr 05/24/19 05/24/19 05/24/19 07:25 07:58 08:55 Temperature 98.2 F Pulse Rate 73 Respiratory 18 18 24 Rate Blood Pressure 119/75 (mmHg) O2 Sat by Pulse 96 Oximetry 05/24/19 05/24/19 05/24/19 10:00 10:30 12:20 Temperature 98.6 F 98 F Pulse Rate 84 81 Respiratory 19 19 24 Rate Blood Pressure 122/74 137/73 (mmHg) O2 Sat by Pulse 95 98 Oximetry 05/24/19 05/24/19 14:00 14:38 Temperature 98.1 F Pulse Rate 70 Respiratory 21 21 Rate Blood Pressure 161/84 (mmHg) O2 Sat by Pulse 93 Oximetry Oxygen Devices in Use Now: None Appearance: Middle-aged unkempt male sitting in chair in NAD Eyes: No Scleral Icterus Ears/Nose/Mouth/Throat: Mucous Membranes Moist Neck: NL Appearance and Movements; NL JVP, Trachea Midline Respiratory: Symmetrical Chest Expansion and Respiratory Effort, Clear to Auscultation Cardiovascular: NL Sounds; No Murmurs; No JVD, RRR Abdominal: NL Sounds; No Tenderness; No Distention Extremities: - - Mild nonpitting RLE Neurological: Alert and Oriented x 3 Lines/Tubes/Other Access: Clean, Dry and Intact Peripheral IV Nutrition: Taking PO's Result Diagrams: 05/24/19 05:26 05/24/19 05:26 Assess/Plan/Problems-Billing Assessment: Mr. Tran is a 44 yo M with PMH of alcohol abuse, withdrawal seizures, and provoked DVT/PT; who presented to the ED with c/o RLE edema and SOB and was found to have a PE. - Patient Problems (1) Pulmonary embolism Code(s): I26.99 - OTHER PULMONARY EMBOLISM WITHOUT ACUTE COR PULMONALE Comment : - History of prvoked DVT/PE after ankle fracture - Presenting with RLE edema and SOB - RLE US unremarkable for DVT - CTA shows multiple PE in RLL, no evidence of right heart strain - Continue Xarelto (2) Alcohol withdrawal Code(s): F10.239 - ALCOHOL DEPENDENCE WITH WITHDRAWAL, UNSPECIFIED Comment: - With history of withdrawal seizures - WAM q2h - Continue lorazepam per protocol; start lorazepam taper for seizure prophylaxis (3) Thrombocytopenia Code(s): D69.6 - THROMBOCYTOPENIA, UNSPECIFIED Comment: - Stable, no bleeding events - Likely secondary to chronic alcoholism (4) Homelessness Code(s): Z59.0 - HOMELESSNESS Comment: - Social work following (5) DVT prophylaxis Comment: - Xarelto (6) Full code status Code(s): Z78.9 - OTHER SPECIFIED HEALTH STATUS Comment: Status and Disposition: Inpatient. Anticipate d/c home when medically stable, though it is unclear if there is a safe plan for d/c. Attending: Mar Smith
[2019-05-24] MEDS ORDERED: Loperamide CAP* 2 MG PO PRN (15:00)
[2019-05-24] MEDS: LORazepam TAB(*) 1 MG PO SCH ×2 (16:19→23:07)
[2019-05-24 17:17] LABS: Urine Appearance Clear; Urine Bilirubin Negative (Negative); Urine Blood Negative (Negative); Urine Color Yellow; Urine Glucose Negative (Negative); Urine Ketones Negative (Negative); Urine Nitrite Negative (Negative); Urine Protein Negative (Negative); Urine Specific Gravity 1.008 (1.010-1.030); Urine Urobilinogen Negative (Negative)
[2019-05-25] MEDS: LORazepam TAB(*) 1 MG PO SCH ×2 (06:20→19:25)
[2019-05-25] MEDS: Folic Acid TAB* 1 MG PO SCH (09:06)
[2019-05-25] MEDS: Multivitamins/Minerals TAB PO SCH (09:06)
[2019-05-25] MEDS: Rivaroxaban TAB(*) 15 MG PO SCH ×2 (09:06→20:18)
[2019-05-25] MEDS: Thiamine TAB* 100 MG TAB PO SCH (09:07)
[2019-05-25] MEDS: Pantoprazole TAB * 40 MG TAB PO SCH (09:07)
--- NOTE | 2019-05-25 12:53 | PN ---
Subjective Date of Service: 05/25/19 Interval History: Mr. Tran is feeling okay this morning. Not any better or worse than yesterday. Still having midsternal CP, worse when taking a deep breath. RLE pain is improved and he believe the edema is improved. Denies N/V. He reports that he does not want to go to [facility] at d/c as he believes they will tell him he needs to go to rehab. He is agreeable with meeting with our social welfare clerk again on Monday and will go to [facility] for assistance with housing. No concerns from nursing. Family History: Unchanged from Admission Social History: Unchanged from Admission Past Medical History: Unchanged from Admission Objective Active Medications: Acetaminophen (Tylenol Tab*) 650 mg PO Q4H PRN MILD PAIN or TEMP > 100.4 Folic Acid (Folvite Tab*) 1 mg PO DAILY [facility] Loperamide HCl (Imodium Cap*) 2 mg PO .SEE DIRECTIONS PRN [facility] Lorazepam (Ativan Tab(*)) 0 - 6 mg PO .PER [facility] PROTOCOL CARA; Protocol Lorazepam (Ativan Tab(*)) 2 mg PO Q12H CARA; Taper Morphine Sulfate (Morphine Inj (Syringe))*) 2 mg IV Q4H PRN PAIN - SEVERE Multivitamins/Minerals (Theragran/Minerals Tab*) 1 tab PO DAILY [facility] Ondansetron HCl (Zofran Inj*) 4 mg IV Q6H PRN NAUSEA Pantoprazole Sodium (Protonix Tab*) 40 mg PO DAILY [facility] Rivaroxaban (Xarelto(*)) 15 mg PO BID [facility] Thiamine HCl (Vitamin B-1 Tab*) 100 mg PO DAILY [facility] Vital Signs - 8 hr 05/25/19 05/25/19 05/25/19 06:00 06:10 06:20 Temperature 97 F Pulse Rate 60 Respiratory 16 16 16 Rate Blood Pressure 121/77 (mmHg) O2 Sat by Pulse 97 Oximetry 05/25/19 05/25/19 07:58 08:00 Temperature 99.6 F Pulse Rate 58 Respiratory 19 19 Rate Blood Pressure 131/85 (mmHg) O2 Sat by Pulse 95 Oximetry Oxygen Devices in Use Now: None Appearance: Middle-aged male laying in bed in NAD Ears/Nose/Mouth/Throat: Mucous Membranes Moist Neck: NL Appearance and Movements; NL JVP, Trachea Midline Respiratory: Symmetrical Chest Expansion and Respiratory Effort, Clear to Auscultation Cardiovascular: NL Sounds; No Murmurs; No JVD, RRR Abdominal: NL Sounds; No Tenderness; No Distention Extremities: - - Mild nonpitting RLE Neurological: Alert and Oriented x 3 Lines/Tubes/Other Access: Clean, Dry and Intact Peripheral IV Nutrition: Taking PO's Result Diagrams: 05/24/19 05:26 05/24/19 05:26 Assess/Plan/Problems-Billing Assessment: Mr. Tran is a 44 yo M with PMH of alcohol abuse, withdrawal seizures, and provoked DVT/PT; who presented to the ED with c/o RLE edema and SOB and was found to have a PE. - Patient Problems (1) Pulmonary embolism Code(s): I26.99 - OTHER PULMONARY EMBOLISM WITHOUT ACUTE COR PULMONALE Comment : - History of prvoked DVT/PE after ankle fracture - Presenting with RLE edema and SOB - RLE US unremarkable for DVT - CTA shows multiple PE in RLL, no evidence of right heart strain - Continue Xarelto (2) Alcohol withdrawal Code(s): F10.239 - ALCOHOL DEPENDENCE WITH WITHDRAWAL, UNSPECIFIED Comment: - With history of withdrawal seizures - WAM per protocol - Continue lorazepam for WAM and lorazepam taper for seizure prophylaxis (3) Thrombocytopenia Code(s): D69.6 - THROMBOCYTOPENIA, UNSPECIFIED Comment: - Stable, no bleeding events - Likely secondary to chronic alcoholism (4) Homelessness Code(s): Z59.0 - HOMELESSNESS Comment: - Social work following (5) DVT prophylaxis Comment: - Xarelto (6) Full code status Code(s): Z78.9 - OTHER SPECIFIED HEALTH STATUS Comment: Status and Disposition: Inpatient. Anticipate d/c home when medically stable, though it is unclear if there is a safe plan for d/c. He will need to meet with social work again on Monday. Attending: Mar Smith
[2019-05-26] MEDS: Morphine INJ* 2 MG/ML 1 ML SYRINGE (TWO MG - NEW SYRINGE VERSION) IV PRN ×2 (01:13→06:14)
[2019-05-26] MEDS: LORazepam TAB(*) 1 MG PO SCH ×2 (06:03→20:01)
[2019-05-26] MEDS: Folic Acid TAB* 1 MG PO SCH (09:20)
[2019-05-26] MEDS: Pantoprazole TAB * 40 MG TAB PO SCH (09:21)
[2019-05-26] MEDS: Rivaroxaban TAB(*) 15 MG PO SCH ×2 (09:21→20:01)
[2019-05-26] MEDS: Thiamine TAB* 100 MG TAB PO SCH (09:21)
[2019-05-26] MEDS: Multivitamins/Minerals TAB PO SCH (09:21)
--- NOTE | 2019-05-26 12:59 | PN ---
Subjective Date of Service: 05/26/19 Interval History: Patient seen and examined. States he has pain with inspiration only. Denies acute shortness of breath, no fevers or chills. No further complaints. Family History: Unchanged from Admission Social History: Unchanged from Admission Past Medical History: Unchanged from Admission Objective Active Medications: Acetaminophen (Tylenol Tab*) 650 mg PO Q4H PRN PRN Reason: MILD PAIN or TEMP > 100.4 Last Admin: 05/24/19 02:21 Dose: 650 mg Folic Acid (Folvite Tab*) 1 mg PO DAILY [facility] Last Admin: 05/26/19 09:20 Dose: 1 mg Loperamide HCl (Imodium Cap*) 2 mg PO .SEE DIRECTIONS PRN PRN Reason: DIARRHEA Last Admin: 05/24/19 16:18 Dose: 2 mg Lorazepam (Ativan Tab(*)) 2 mg PO Q12H [facility]; Taper Stop: 05/27/19 10:59 Last Admin: 05/26/19 06:03 Dose: 2 mg Multivitamins/Minerals (Theragran/Minerals Tab*) 1 tab PO DAILY [facility] Last Admin: 05/26/19 09:21 Dose: 1 tab Pantoprazole Sodium (Protonix Tab*) 40 mg PO DAILY [facility] Last Admin: 05/26/19 09:21 Dose: 40 mg Rivaroxaban (Xarelto(*)) 15 mg PO BID [facility] Stop: 06/13/19 09:01 Last Admin: 05/26/19 09:21 Dose: 15 mg Thiamine HCl (Vitamin B-1 Tab*) 100 mg PO DAILY [facility] Last Admin: 05/26/19 09:21 Dose: 100 mg Vital Signs - 8 hr 05/26/19 05/26/19 05/26/19 06:03 06:14 08:00 Temperature Pulse Rate Respiratory 20 20 18 Rate Blood Pressure (mmHg) O2 Sat by Pulse Oximetry 05/26/19 05/26/19 05/26/19 08:09 09:19 09:20 Temperature 97.9 F Pulse Rate 69 Respiratory 17 18 18 Rate Blood Pressure 146/79 (mmHg) O2 Sat by Pulse 97 Oximetry Oxygen Devices in Use Now: None Appearance: alert, disheveled appearing, malodorous Eyes: PERRLA Respiratory: Symmetrical Chest Expansion and Respiratory Effort, Clear to Auscultation Cardiovascular: NL Sounds; No Murmurs; No JVD, RRR Abdominal: NL Sounds; No Tenderness; No Distention, - - obese Extremities: No Edema Neurological: Alert and Oriented x 3 Nutrition: Taking PO's Result Diagrams: 05/24/19 05:26 05/24/19 05:26 Additional Lab and Data: Lab Results 05/23/19 05/23/19 05/23/19 Range/Units 16:31 16:31 16:31 WBC 4.6 (3.5-10.8) 10^3/uL RBC 4.74 (4.18-5.48) 10^6 /uL Hgb 15.6 (14.0-18.0) g/dL Hct 45 (42-52) % MCV 94 (80-94) fL MCH 33 H (27-31) pg MCHC 35 (31-36) g/dL RDW 13 (10-15) % Plt Count 107 L (150-450) 10^3/uL MPV 7.3 L (7.4-10.4) fL Neut % (Auto) 68.3 % Lymph % (Auto) 19.1 % [place] % (Auto) 10.4 % Eos % (Auto) 1.9 % Baso % (Auto) 0.3 % Absolute Neuts (auto) 3.2 (1.5-7.7) 10^3/ul Absolute Lymphs (auto) 0.9 L (1.0-4.8) 10^3/ul Absolute Monos (auto) 0.5 (0-0.8) 10^3/ul Absolute Eos (auto) 0.1 (0-0.6) 10^3/ul Absolute Basos (auto) 0.0 (0-0.2) 10^3/ul Absolute Nucleated RBC 0.0 10^3/ul Nucleated RBC % 0.0 INR (Anticoag Therapy) 1.05 (0.82-1.09) Sodium 138 (135-145) mmol/L Potassium 3.4 L (3.5-5.0) mmol/L Chloride 104 (101-111) mmol/L Carbon Dioxide 25 (22-32) mmol/L Anion Gap 9 (2-11) mmol/L BUN 5 L (6-24) mg/dL Creatinine 0.52 L (0.67-1.17) mg/dL Est GFR ( Amer) 207.0 (>60) Est GFR (Non-Af Amer) 171.1 (>60) BUN/Creatinine Ratio 9.6 (8-20) Glucose 115 H (70-100) mg/dL Lactic Acid (0.5-2.0) mmol/L Calcium 8.7 (8.6-10.3) mg/dL Magnesium 1.9 (1.9-2.7) mg/dL Total Bilirubin 0.60 (0.2-1.0) mg/dL AST 101 H (13-39) U/L ALT 59 H (7-52) U/L Alkaline Phosphatase 93 (34-104) U/L Troponin I 0.00 (<0.04) ng/mL Total Protein 7.4 (6.4-8.9) g/dL Albumin 4.1 (3.2-5.2) g/dL Globulin 3.3 (2-4) g/dL Albumin/Globulin Ratio 1.2 (1-3) 05/23/19 Range/Units 16:31 WBC (3.5-10.8) 10^3/uL RBC (4.18-5.48) 10^6 /uL Hgb (14.0-18.0) g/dL Hct (42-52) % MCV (80-94) fL MCH (27-31) pg MCHC (31-36) g/dL RDW (10-15) % Plt Count (150-450) 10^3/uL MPV (7.4-10.4) fL Neut % (Auto) % Lymph % (Auto) % [place] % (Auto) % Eos % (Auto) % Baso % (Auto) % Absolute Neuts (auto) (1.5-7.7) 10^3/ul Absolute Lymphs (auto) (1.0-4.8) 10^3/ul Absolute Monos (auto) (0-0.8) 10^3/ul Absolute Eos (auto) (0-0.6) 10^3/ul Absolute Basos (auto) (0-0.2) 10^3/ul Absolute Nucleated RBC 10^3/ul Nucleated RBC % INR (Anticoag Therapy) (0.82-1.09) Sodium (135-145) mmol/L Potassium (3.5-5.0) mmol/L Chloride (101-111) mmol/L Carbon Dioxide (22-32) mmol/L Anion Gap (2-11) mmol/L BUN (6-24) mg/dL Creatinine (0.67-1.17) mg/dL Est GFR ( Amer) (>60) Est GFR (Non-Af Amer) (>60) BUN/Creatinine Ratio (8-20) Glucose (70-100) mg/dL Lactic Acid 1.4 (0.5-2.0) mmol/L Calcium (8.6-10.3) mg/dL Magnesium (1.9-2.7) mg/dL Total Bilirubin (0.2-1.0) mg/dL AST (13-39) U/L ALT (7-52) U/L Alkaline Phosphatase (34-104) U/L Troponin I (<0.04) ng/mL Total Protein (6.4-8.9) g/dL Albumin (3.2-5.2) g/dL Globulin (2-4) g/dL Albumin/Globulin Ratio (1-3) Assess/Plan/Problems-Billing Assessment: Mr. Tran is a 44 yo M with PMH of alcohol abuse, withdrawal seizures, and provoked DVT/PT; who presented to the ED with c/o RLE edema and SOB and was found to have a PE. - Patient Problems (1) Pulmonary embolism Code(s): I26.99 - OTHER PULMONARY EMBOLISM WITHOUT ACUTE COR PULMONALE SNOMED Code(s): 80136084 Comment: - RLE US unremarkable for DVT - CTA shows multiple PE in RLL, no evidence of right heart strain, no tachypnea , tachycardia or desats last 24 hours - Continue Xarelto, will need outpatient follow up (2) Alcohol withdrawal Code(s): F10.239 - ALCOHOL DEPENDENCE WITH WITHDRAWAL, UNSPECIFIED SNOMED Code (s): 993069895 Comment: - With history of withdrawal seizures - WAM scores at 2 for last two assessments, will discontinue - Continue standing ativan taper, thiamin and MVI (3) Homelessness Code(s): Z59.0 - HOMELESSNESS SNOMED Code(s): 28517680 Comment: - Social work following, per notes, patient disinterested in services or referrals for alcohol rehab (4) DVT prophylaxis Code(s): JQG8727 - SNOMED Code(s): 152816558 Comment: - Carlos (5) Full code status Code(s): Z78.9 - OTHER SPECIFIED HEALTH STATUS SNOMED Code(s): 631753825 Comment: Status and Disposition: Inpatient. Medically clear for discharge, however, it is unclear if there is a safe plan for d/c. He will need to meet with social work again on Monday.
[2019-05-27] MEDS: Acetaminophen TAB* 325 MG PO PRN (07:18)
[2019-05-27] MEDS: LORazepam TAB(*) 1 MG PO SCH (07:19)
[2019-05-27] MEDS: Folic Acid TAB* 1 MG PO SCH (08:14)
[2019-05-27] MEDS: Thiamine TAB* 100 MG TAB PO SCH (08:14)
[2019-05-27] MEDS: Multivitamins/Minerals TAB PO SCH (08:14)
[2019-05-27] MEDS: Pantoprazole TAB * 40 MG TAB PO SCH (08:14)
[2019-05-27] MEDS: Rivaroxaban TAB(*) 15 MG PO SCH (08:14)
[2019-05-27 13:39] VITALS: BP 132/81
--- NOTE | 2019-05-27 23:43 | DS ---
CC: Dr. Pope; Dr. Wesley Contreras and Dr. Amy Tolbert, [facility]; Dr. Jaime Allen, Surgical Service * DISCHARGE SUMMARY: DATE OF ADMISSION: 05/23/19 DATE OF DISCHARGE: 05/26/19 PRIMARY CARE PROVIDER: Dr. Pope. MY ATTENDING FOR TODAY: Dr. Britton.* (DICTATED BY DULCE MARIA BORJA NP) HOSPITAL COURSE: Please refer to admitting H and P on 05/23/19, but in short Mr. Tran is a 44-year-old male patient with past medical history significant for alcohol abuse, DVT and PE; provoked, alcohol withdrawal seizures, coronary artery disease, and GA with PCI who presented to the emergency department with complaints of some shortness of breath, exertional in nature, and some swelling of the right lower extremity. The patient states that these symptoms had been becoming worse. He came to the emergency department after seeing Dr. Pope in the office to be evaluated for these symptoms. In the emergency department, he did note to our staff that he is drinking alcohol daily, but is refusing any rehab options or additional care. In the emergency department, he was noted to have a new pulmonary embolism after having CTA of the chest for which he was placed on Xarelto empirically. He was also placed on [facility] protocol for his alcoholism, to which he responded well to Ativan. He did not have any seizure activity during this time. It should also be noted that the patient does have social issues with homelessness and with refusing any offers of services from our social work department. It should also be noted that the patient does have some access to care through his mother and through some resources in the community. Ultimately, he spent several days in the hospital for induction of his Xarelto and for detoxification for alcohol. He does seem not motivated to pursue further rehabilitation services; however, I did have a discussion with the patient and his mother present regarding outpatient options. It remains to be seen whether the patient will follow up on this or not. In any case, on , the patient has remained very stable. He is not exhibiting any autonomic dysfunction in terms of his detoxification. He is not acutely short of breath from his PE. He does have some pain with inspiration intermittently; however, he was able to ambulate and take a shower without any additional pain or exertional dyspnea. He has not had any changes on telemetry or on his EKG, and he is essentially stable for discharge to home. It should also be noted that the patient did not have a DVT present during this admission. As such, this latest PE is unprovoked as the patient has not had a surgical procedure or any traumatic injury. DISCHARGE DIAGNOSES: 1. Unprovoked pulmonary embolism. 2. Mild hypokalemia, now resolved. 3. Thrombocytopenia secondary to alcohol abuse. 4. Alcohol withdrawal. 5. Chest pain secondary to pulmonary embolus. DISCHARGE MEDICATIONS: Include: 1. Xarelto 15 mg 1 tablet 2 times a day for 16 more days, then 20 mg daily starting 06/13/19. 2. Protonix 40 mg p.o. daily. 3. Multivitamin with minerals 1 tablet p.o. daily. 4. Folic acid 1 mg p.o. daily. 5. Thiamine 100 mg p.o. daily. REVIEW OF SYSTEMS: On the day of discharge, the patient denies any fever, fatigue, or chills. He does have essential tremor. He does not have any acute chest pain. He has some mild inspiratory pain with deep inspiration, but otherwise no acute shortness of breath. No abdominal pain, no nausea, no vomiting, no urinary complaints, no arthralgias or myalgias, and no further constitutional complaints. PHYSICAL EXAMINATION: In general, he is well appearing and in no acute distress. Vital Signs: Blood pressure 132/81, heart rate 93, respiratory rate 16, O2 saturation 97% on room air with a temperature of 97.5. HEENT: The patient is atraumatic and normocephalic, PERRLA, nonicteric sclerae. Oral mucosa is moist. Tongue is midline. Neck: Supple and nontender. No JVD noted. No carotid bruits auscultated. Cardiovascular: S1 and S2 present. No murmurs, gallops, or rubs noted. Rate and rhythm are regular. Lungs are clear bilaterally to auscultation with no wheezing, rhonchi, or rales. Abdomen is soft, nontender, and nondistended. Positive bowel sounds in all 4 quadrants. Abdomen is obese. was deferred. Musculoskeletal: There is no clubbing, no cyanosis, and no edema. He has +2 distal pulses. Full range of motion, steady gait. Neurologic: Grossly intact. Psychiatric: He can be somewhat irritable, but he is otherwise cooperative at the time of discharge and appropriate. DIAGNOSTIC STUDIES/LAB DATA: Laboratory Data: WBCs 5.4, RBCs 4.71, hemoglobin 15.5, hematocrit 44, platelets 100. Sodium 135, potassium 3.5, chloride 104, BUN 5, creatinine 0.53, glucose 100, calcium 8.1. AST 72, ALT 47, alk phos 75. Troponin were negative at 0.00 x3. Total protein 6.9, albumin 3.7, globulin 3.2, albumin globulin ratio 1.2. Urinalysis is negative for any acute infective process. INR was 1.05. Toxicology: Serum alcohol at admission was 137. Imaging: Venous Doppler dated 05/23/19 shows no evidence for DVT, and CTA of the chest shows there are a few central filling defects within the segmental branches of the right lower lobe pulmonary artery consistent with acute pulmonary embolism. No central fat embolus. There may be pulmonary arterial hypertension. No evidence for right ventricular strain and no aortic dissection. DISPOSITION: The patient was discharged to his mother's home in stable condition in the care of his mother. It should be noted that the patient has refused rehab services, has refused DSS services, and has refused to go to any [place] [facility] [place] services given his homelessness. Please see social work notes for details on referrals that were made. DIET: Heart healthy as tolerated. ACTIVITY: Progress as tolerated. FOLLOWUP: The patient was instructed to follow up with [facility] in 1 to [address] Pope also in the next 1 to 2 weeks. The patient was discharged in stable condition. All questions were answered. The patient and his mother stated their understanding of the discharge instructions. DULCE MARIA BORJA NP [id number]/[facility] #: [id number] MEMO
== END 2019-05-27 13:40 | disposition home or self-care (01) | DRG 134 ==
LOC: ED 15:27 → MEDTELE 21:23
PROVIDERS: ADMIT Internal Medicine; ATTEND Internal Medicine
DX: I26.99 Other pulmonary embolism without acute cor pulmonale (principal); F10.239 Alcohol dependence with withdrawal, unspecified; D69.59 Other secondary thrombocytopenia; E87.6 Hypokalemia; F10.229 Alcohol dependence with intoxication, unspecified; I25.10 Atherosclerotic heart disease of native coronary artery without angina pectoris; Y90.6 Blood alcohol level of 120-199 mg/100 ml; Z95.5 Presence of coronary angioplasty implant and graft; Z59.0 Homelessness; Z86.711 Personal history of pulmonary embolism
CPT/HCPCS: 36415; 71275; 80053; 80320; 81003; 83605; 83735; 84484; 85025; 85610; 93005; 99284; A9270-GY; G0480; J2270; J2405; J3411; Q9967

== ENCOUNTER 2019-05-29 00:58 | Emergency (ER) | payer OTHER ==
[2019-05-29] MEDS ORDERED: Rivaroxaban TAB(*) 15 MG PO ONE (05:01)
--- NOTE | 2019-05-29 05:47 | ED ---
Substance Abuse/Use - HPI Summary HPI Summary: THIS PT IS A LEVEL 5 CAVEAT DUE TO ALCOHOL INTOXICATION AND HIS INABILITY TO TELL A CONSISTENT HPI AND CONSISTENT SYMPTOMS. He claims that someone has his meds and then changed his story to someone stole them. He also states that he both wants to get clean from alcoholism and then states that he never does. - History Of Current Complaint Chief Complaint: EDGeneral Stated Complaint: NEEDS MEDS PER EMS Time Seen by Provider: 05/29/19 04:27 Hx Obtained From: Patient - Allergies/Home Medications Allergies/Adverse Reactions: Allergies Allergy/AdvReac Type Severity Reaction Status Date / Time No Known Allergies Allergy Verified 05/29/19 01:07 PMH/Surg Hx/FS Hx/Imm Hx Previously Healthy: Yes Endocrine/Hematology History: Reports: Hx Anticoagulant Therapy - Xarelto 20mg daily - pt denies today Denies: Hx Diabetes, Hx Thyroid Disease Cardiovascular History: Reports: Hx Hypertension - pt denies today Denies: Hx Pacemaker/ICD Respiratory History: Denies: Hx Asthma, Hx Chronic Obstructive Pulmonary Disease (COPD) History: Denies: Hx Renal Disease Musculoskeletal History: Reports: Hx Orthopedic Injury Sensory History: Denies: Hx Contacts or Glasses, Hx Hearing Aid Opthamlomology History: Denies: Hx Contacts or Glasses Neurological History: Reports: Hx Seizures - not taking med "I can't afford them " Denies: Hx Dementia Psychiatric History: Reports: Hx of Violent Episodes Against Others, Hx Substance Abuse - alcoholism Denies: Hx Eating Disorder, Hx Panic Disorder - Surgical History Surgery Procedure, Year, and Place: knee surgery as a child - Immunization History Immunizations Up to Date: Yes Infectious Disease History: No Infectious Disease History: Denies: Hx Hepatitis, Hx Human Immunodeficiency Virus (HIV), Hx of Known/ Suspected MRSA, Hx Known/Suspected VRSA, History Other Infectious Disease, Traveled Outside the [place] in Last 30 Days - Family History Known Family History: Positive: Diabetes, Other - alcohol abuse - father - Social History Alcohol Use: Daily Alcohol Amount: 3-4 daily beers Hx Substance Use: No Substance Use Type: Reports: None Hx Tobacco Use: Yes - not currently Smoking Status (MU): Former Smoker Review of Systems Constitutional: Other - pt is intoxicated and reports loosing his medications. Physical Exam - Summary Physical Exam Summary: A FULL PE IS UNOBTAINABLE DUE TO THE PT BEING A LEVEL 5 CAVEAT FROM ALCOHOL INTOXICATION. Triage Information Reviewed: Yes Vital Signs On Initial Exam: Initial Vitals Temp Pulse Resp BP Pulse Ox 97.9 F 88 16 115/75 95 05/29/19 01:00 05/29/19 01:00 05/29/19 01:00 05/29/19 01:00 05/29/19 01:00 Vital Signs Reviewed: Yes Diagnostics - Vital Signs Vital Signs Temp Pulse Resp BP Pulse Ox 05/29/19 04:35 85 21 105/74 95 05/29/19 04:06 80 22 112/72 92 05/29/19 04:00 77 14 93 05/29/19 03:36 82 19 118/65 95 05/29/19 03:05 80 17 111/74 92 05/29/19 03:00 86 19 93 05/29/19 02:35 78 23 104/71 91 05/29/19 02:05 82 22 107/67 92 05/29/19 02:00 81 17 92 05/29/19 01:35 83 21 111/72 94 05/29/19 01:06 88 26 115/75 95 05/29/19 01:05 90 96 05/29/19 01:00 97.9 F 88 16 115/75 95 - Laboratory Lab Statement: Any lab studies that have been ordered have been reviewed, and results considered in the medical decision making process. Course/Dx - Course Course Of Treatment: THIS PT IS LEVEL 5 CAVEAT DUE TO HIS ALCOHOL INTOXICATION AND HIS CONTRIDICTING HPI, ROS, AND PE. Discharge ED - Discharge Plan Referrals: No Primary Care Phys,NOPCP [Primary Care Provider] - - Attestation Statements Document Initiated by Scribe: Yes Documenting Scribe: Jonathan Dominguez Provider For Whom Scribe is Documenting (Include Credential): Kenneth Weiss MD Scribe Attestation: Jonathan Jeff, scribed for Kenneth Weiss MD on 05/29/19 at 0547.
--- NOTE | 2019-05-29 07:13 | ED ---
Progress - Progress Note Progress Note: This patient is a sign-out at 0700 on 05/29/19 at shift change from Dr. Kenneth Weiss to Dr. Kingston Lema pending child protective services social worker consult and disposition. Course/Dx - Course Course Of Treatment: This patient is a sign-out at 0700 on 05/29/19 at shift change from Dr. Kenneth Weiss to Dr. Kingston Lema pending child protective services social worker consult and disposition. health workers came and saw the patient. They recommend for the patient to be discharged with prescription to be filled in hospital. He will be living with his mother. - Diagnoses Provider Diagnoses: Medication refill Discharge ED - Sign-Out/Discharge Documenting (check all that apply): Patient Departure - Discharge, Receiving Sign-Out Receiving patient FROM: Kenneth Weiss Patient Received Moderate/Deep Sedation with Procedure: No - Discharge Plan Condition: Stable Disposition: HOME Prescriptions: Rivaroxaban TAB(*) [Xarelto 15 mg(*)] 15 mg PO BID 16 Days #32 tab Referrals: [facility] [Outside] - 3 Days Additional Instructions: FOLLOW UP WITH YOUR PRIMARY CARE PROVIDER WITHIN ONE WEEK. RETURN TO THE ED FOR ANY WORSENING OR NEW SYMPTOMS. - Attestation Statements Document Initiated by Scribe: Yes Documenting Scribe: Rey Mcfadden Provider For Whom Scribe is Documenting (Include Credential): Kingston Lema MD Scribe Attestation: Rey Jeff, scribed for Kingston Lema MD on 05/29/19 at 0918. Status of Scribe Document: Ready
[2019-05-29 09:10] VITALS: BP 127/81
== END 2019-05-29 09:09 | disposition home or self-care (01) ==
LOC: ED 00:58
DX: F10.929 Alcohol use, unspecified with intoxication, unspecified (principal); I10 Essential (primary) hypertension; Z87.891 Personal history of nicotine dependence; Z79.01 Long term (current) use of anticoagulants; Z79.899 Other long term (current) drug therapy
CPT/HCPCS: 99282

== ENCOUNTER 2019-05-29 18:56 | Emergency (ER) | payer OTHER ==
--- NOTE | 2019-05-29 19:29 | ED ---
HPI Chest Pain - HPI Summary HPI Summary: Pt is a 44 y/o M w recent diagnosis of R PE, DVT on eliquis, who is presenting to the ED with a chief complaint of mid-sternal chest pain initially onset multiple weeks ago. The pain worsens with puffing out his chest/coughing. Patient was recently admitted to hospital for R sided PE w/o heart strain and placed on xarelto. He states he was discharged home yesterdauy but did not eat much because he saw his PCP who stated he gained 20lbs, so he has not been eating to try and lose weight. He also notes R leg edema which is attributed to his DVT. Denies SOB. No syncope. Reports compliance w xarelto. - History of Current Complaint Chief Complaint: EDChestPainROMI Time Seen by Provider: 05/29/19 19:08 Hx Obtained From: Patient Onset/Duration: Started Weeks Ago, Still Present Timing: Intermittent, Lasting Hours Initial Severity: Moderate Current Severity: Severe Pain Intensity: 7 Pain Scale Used: 0-10 Numeric Chest Pain Location: Mid Sternal Chest Pain Radiates: No Aggravating Factor(s): Other: - puffing out his chest Alleviating Factor(s): Nothing Associated Signs and Symptoms: Positive: Chest Pain, Abdominal Pain, Edema - R leg, Other: - recent weight gain - Additional Pertinent History Primary Care Physician: ARIANNA - Allergy/Home Medications Allergies/Adverse Reactions: Allergies Allergy/AdvReac Type Severity Reaction Status Date / Time No Known Allergies Allergy Verified 05/29/19 01:07 PMH/Surg Hx/FS Hx/Imm Hx Previously Healthy: Yes Endocrine/Hematology History: Reports: Hx Anticoagulant Therapy - Xarelto 20mg daily - pt denies today Denies: Hx Diabetes, Hx Thyroid Disease Cardiovascular History: Reports: Hx Hypertension - pt denies today Denies: Hx Pacemaker/ICD Respiratory History: Denies: Hx Asthma, Hx Chronic Obstructive Pulmonary Disease (COPD) History: Denies: Hx Renal Disease Musculoskeletal History: Reports: Hx Orthopedic Injury Sensory History: Denies: Hx Contacts or Glasses Opthamlomology History: Denies: Hx Contacts or Glasses Neurological History: Reports: Hx Seizures - not taking med "I can't afford them " Denies: Hx Dementia Psychiatric History: Reports: Hx of Violent Episodes Against Others, Hx Substance Abuse - alcoholism Denies: Hx Eating Disorder, Hx Panic Disorder - Surgical History Surgery Procedure, Year, and Place: knee surgery as a child Infectious Disease History: No Infectious Disease History: Denies: Hx Hepatitis, Hx Human Immunodeficiency Virus (HIV), Hx of Known/ Suspected MRSA, Hx Known/Suspected VRSA, History Other Infectious Disease, Traveled Outside the [place] in Last 30 Days - Family History Known Family History: Positive: Diabetes, Other - alcohol abuse - father - Social History Alcohol Use: Daily Alcohol Amount: 3-4 daily beers Hx Substance Use: No Substance Use Type: Reports: None Hx Tobacco Use: Yes - not currently Smoking Status (MU): Former Smoker Review of Systems Positive: Other - weight gain Positive: Chest Pain Positive: Abdominal Pain Positive: Edema - R leg All Other Systems Reviewed And Are Negative: Yes Physical Exam - Summary Physical Exam Summary: Constitutional: Well-developed, Well-nourished, Alert. (-) Distressed Skin: Warm, Dry HENT: Normocephalic; Atraumatic Eyes: Conjunctiva normal Neck: Musculoskeletal ROM normal neck. (-) JVD, (-) Stridor, (-) Nuchal rigidity Cardio: Rhythm regular, rate normal, Heart sounds normal; Intact distal pulses; Radial pulses are 2+ and symmetric. (-) Murmur Pulmonary/Chest wall: Effort normal. (-) Respiratory distress, (-) Wheezes, (-) Rales Abd: Protuberant, (-) tenderness, (-) Distension, (-) Guarding, (-) Rebound Musculoskeletal: 2+ edema to the R knee, venous stasis changes LE Lymph: (-) Cervical adenopathy Neuro: Alert, Oriented x3 Psych: mildly anxious Triage Information Reviewed: Yes Vital Signs On Initial Exam: Initial Vitals Temp Pulse Resp BP Pulse Ox 98.4 F 83 18 116/81 98 05/29/19 18:59 05/29/19 18:59 05/29/19 18:59 05/29/19 18:59 05/29/19 18:59 Vital Signs Reviewed: Yes Diagnostics - Vital Signs Vital Signs Temp Pulse Resp BP Pulse Ox 05/29/19 18:59 98.4 F 83 18 116/81 98 - Laboratory Result Diagrams: 05/29/19 19:25 05/29/19 21:09 Lab Statement: Any lab studies that have been ordered have been reviewed, and results considered in the medical decision making process. - Radiology CXR Radiology Interpretation Completed By: ED Physician Summary of Radiographic Findings: No acute cardiopulmonary process. Pending official radiology report. Re-Evaluation - Re-Evaluation First Eval Change: Improved - repeat trop neg, electrolytes unremarkable. Patient given food in ED, encourged PO intake at home. Chest Pain Course/Dx - Course Course Of Treatment: 44-year-old male with recent diagnosis of PE and DVT presents with chest pain. - well appearing, not hypoxic. Patient reporting "popping" of sternum. CXR here w/o abnormality. Recent CTPE with R lobar PE no R heart strain. Reports compliance w medications. No BELL. [place] weak today but hadnt eaten today 2/2 poor access to food and wanting to lose weight. Trop here negative x2 do not suspect ACS, low suspicion for worsening PE given medication compliance. Exam c/w MSK pain of sternum. Given food here, can follow up with PCP outpatient. - Diagnoses Provider Diagnoses: Chest wall pain, Weakness Discharge ED - Sign-Out/Discharge Documenting (check all that apply): Patient Departure Patient Received Moderate/Deep Sedation with Procedure: No - Discharge Plan Condition: Stable Disposition: HOME Patient Education Materials: Chest Pain (ED), Near Syncope (ED) Referrals: [facility] [Outside] Additional Instructions: You were seen in the emergency department for chest pain. Your lab work was unremarkable. Please return to emergency department if you have continued pain , trouble breathing, passing out. If any studies were not completed at the time of discharge you will be called with the relevant results. Please follow up with your primary care doctor in next 2-3 days and return to emergency department for worsening or concerning symptoms. It was a pleasure taking care of you today. - Billing Disposition and Condition Condition: STABLE Disposition: Home - Attestation Statements Document Initiated by Bo: Yes Documenting Scribe: Floresita Linares Provider For Whom Bo is Documenting (Include Credential): Farzad Lombardo MD. Scribe Attestation: Floresita Jeff, abigailibed for Farzad Lombardo MD. on 05/30/19 at 0958. Scribe Documentation Reviewed: Yes Provider Attestation: The documentation as recorded by the scribe, Floresita Linares accurately reflects the service I personally performed and the decisions made by me, Farzad Lombardo MD. Status of Abigailibe Document: Viewed
[2019-05-29 19:33] LABS: Hematocrit 47 % (42-52); Hemoglobin 16.3 g/dL (14.0-18.0); Mean Corpuscular HGB Conc 35 g/dL (31-36); Mean Corpuscular Hemoglobin 33 pg (27-31); Mean Corpuscular Volume 95 fL (80-94); Mean Platelet Volume 7.6 fL (7.4-10.4); Platelet Count 160 10^3/uL (150-450); Red Blood Count 4.95 10^6 /uL (4.18-5.48); Red Cell Distribution Width 13 % (10-15); White Blood Count 8.8 10^3/uL (3.5-10.8)
[2019-05-29 19:50] LABS: ALT 73 U/L (7-52); Albumin/Globulin Ratio 1.1 (1-3); Alkaline Phosphatase 63 U/L (34-104); BUN/Creatinine Ratio 13.5 (8-20); Blood Urea Nitrogen 7 mg/dL (6-24); CO2 Carbon Dioxide 24 mmol/L (22-32); Chloride 104 mmol/L (101-111); EGFR Non-African American 171.1 (>60); Globulin 3.6 g/dL (2-4); Glucose 111 mg/dL (70-100); Sodium 135 mmol/L (135-145); Total Protein 7.6 g/dL (6.4-8.9)
[2019-05-29 20:25] LABS: Anion Gap 7 mmol/L (2-11)
[2019-05-29 20:49] LABS: ABS Basophils 0.1 10^3/ul (0-0.2); ABS Eosinophils 0.1 10^3/ul (0-0.6); ABS Monocytes 1.2 10^3/ul (0-0.8); ABS Neutrophils 6.4 10^3/ul (1.5-7.7); Nucleated Red Blood Cells % 0.2
[2019-05-29 21:43] LABS: Albumin 3.9 g/dL (3.2-5.2); Albumin/Globulin Ratio 1.1 (1-3); BUN/Creatinine Ratio 12.9 (8-20); Calcium 8.9 mg/dL (8.6-10.3); EGFR Non-African American 139.7 (>60); Globulin 3.4 g/dL (2-4); Potassium 3.5 mmol/L (3.5-5.0); Total Bilirubin 0.8 mg/dL (0.2-1.0); Total Protein 7.3 g/dL (6.4-8.9)
[2019-05-29 22:04] VITALS: BP 129/79
== END 2019-05-29 22:45 | disposition home or self-care (01) ==
LOC: ED 18:56
DX: R07.89 Other chest pain (principal); R53.1 Weakness; R10.9 Unspecified abdominal pain; R60.9 Edema, unspecified; Z87.891 Personal history of nicotine dependence; Z79.01 Long term (current) use of anticoagulants
CPT/HCPCS: 36415; 71046; 80053; 83880; 84484; 85025; 85060; 99284

== ENCOUNTER 2019-07-08 15:49 | Emergency (ER) | payer OTHER ==
--- OUTSIDE RECORDS SUMMARY | 2019-07-08 16:00 | XMS REPORT | Summary of Care ---
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 MiscIndications: Edema of right lower extremity cetirizine Take 1 Tab 30 Tab 0 06/28/2019 Active (ZYRTEC) 10 MG by mouth Oral DAILY. TabIndications: Bee sting reaction, accidental or unintentional, initial encounter, Medication refill naltrexone (REVIA) Take 1 Tab 30 Tab 0 06/28/2019 Active 50 MG Oral by mouth TabIndications: DAILY. Alcohol abuse, Alcoholism (HCC), Medication refill foliC acid 1 MG Take 1 Tab 30 Tab 11 06/28/2019 Active Oral by mouth TabIndications: DAILY. Medication refill pantoprazole Take 1 Tab 30 Tab 5 06/28/2019 Active (PROTONIX) 20 MG by mouth Oral Tab DAILY. ECIndications: Medication refill rivaroxaban Take 1 Tab 30 Tab 4 06/28/2019 Active (XARELTO) 20 MG by mouth Oral DAILY. TabIndications: Medication refill, Chronic deep vein thrombosis (DVT) of brachial vein of right upper extremity (HCC) thiamine (VITAMIN Take 1 Tab 90 Tab 1 06/28/2019 Active B1) 100 MG Oral by mouth TabIndications: DAILY. Alcohol use disorder, moderate, dependence (HCC), Medication refill thiamine (VITAMIN Take 1 Tab 90 Tab 1 01/10/2019 06/28/2019 Discontinued B1) 100 MG Oral by mouth (Reorder) TabIndications: DAILY. Alcohol use disorder, moderate, dependence (HCC) pantoprazole Take 20 mg 0 06/28/2019 Discontinued (PROTONIX) 20 MG by mouth (Reorder) Oral Tab EC DAILY. naltrexone (REVIA) Take 1 Tab 30 Tab 0 06/04/2019 06/28/2019 Discontinued 50 MG Oral by mouth (Reorder) TabIndications: DAILY. Alcohol abuse foliC acid 1 MG Take 1 Tab 30 Tab 11 06/17/2019 06/28/2019 Discontinued Oral Tab by mouth (Reorder) DAILY. rivaroxaban Take 1 Tab 30 Tab 4 06/17/2019 06/28/2019 Discontinued (XARELTO) 20 MG by mouth (Reorder) Oral Tab DAILY. cetirizine Take 1 Tab 30 Tab 0 06/20/2019 06/28/2019 Discontinued (ZYRTEC) 10 MG by mouth (Reorder) Oral DAILY. TabIndications: Bee sting reaction, accidental or unintentional, initial encounter documented as of this encounter (statuses as of 06/28/2019) Active Problems Problem Noted Date History of pulmonary embolism 06/17/2019 Alcoholism 06/17/2019 Gastroesophageal reflux disease without esophagitis 06/17/2019 Extreme obesity 06/17/2019 documented as of this encounter (statuses as of 06/28/2019) Social History Tobacco Use Types Packs/Day Years Used Date Never Smoker 0 Smokeless Tobacco: Never Used Alcohol Use Drinks/Week oz/Week Comments Yes 14 Cans of beer 14.0 If he has the carlson. Alcohol Habits Answer Date Recorded How often do you have a drink containing 4 or more times a week 06/28/2019 alcohol? How many drinks containing alcohol do you have 1 or 2 06/28/2019 on a typical day when you are drinking? How often do you have six or more drinks on one Less than monthly 06/28/2019 occasion? Sex Assigned at Date Recorded Not on file Job Start Date Occupation Industry Not on file Not on file Not on file Travel History Travel Start Travel End No recent travel history available. documented as of this encounter Last Filed Vital Signs Vital Sign Reading Time Taken Comments Blood Pressure 136/86 06/28/2019 2:17 PM EDT Pulse 93 06/28/2019 2:17 PM EDT Temperature 36.9 06/28/2019 2:17 PM EDT C (98.4 F) Respiratory Rate - - Oxygen Saturation 92% 06/28/2019 2:17 PM EDT Inhaled Oxygen Concentration - - Weight 134 kg (295 lb 6.4 oz) 06/28/2019 2:17 PM EDT Height 174 cm (5' 8.5") 06/28/2019 2:17 PM EDT Body Mass Index 44.26 06/28/2019 2:17 PM EDT documented in this encounter Progress Notes Kenneth Mckeon MD - 06/28/2019 2:30 PM EDT PATIENT: Andreas Tran : 1975 DATE OF SERVICE: 06/28/2019 CHIEF COMPLAINT: Chief Complaint Patient presents with Medication Check alcoholism Subjective HISTORY OF PRESENT ILLNESS: Andreas Tran is a 44-y.o. male. Pt here for medication refills. Was taking Protonix and Naltraxone--Protonix stopped his burping andheartburn. The Naltraxone curbed but did not eliminate his drinking. Xarelto refill as well along with vitamin B1 and Folic acid. Pt noted to have strong odor of alcohol but able to participate in the exam. His caregiver is also present with his consent who will ensure he gets his medications and understands the plans. History reviewed. No pertinent past medical history. History reviewed. No pertinent family history. Current Outpatient Medications Medication Sig cetirizine (ZYRTEC) 10 MG Oral Tab Take 1 Tab by mouth DAILY. Elastic Bandages & Supports (MEDICAL COMPRESSION SOCKS) Does not apply Misc 1 Appl by Does not apply route DAILY. foliC acid 1 MG Oral Tab Take 1 Tab by mouth DAILY. naltrexone (REVIA) 50 MG Oral Tab Take 1 Tab by mouth DAILY. pantoprazole (PROTONIX) 20 MG Oral Tab EC Take 20 mg by mouth DAILY. rivaroxaban (XARELTO) 20 MG Oral Tab Take 1 Tab by mouth DAILY. thiamine (VITAMIN B1) 100 MG Oral Tab [...] Substance and Sexual Activity Alcohol use: Yes Alcohol/week: 14.0 standard drinks Types: 14 Cans of beer per week Frequency: 4 or more times a week Drinks per session: 1 or 2 Binge frequency: Less than monthly Comment: If he has the carlson. Drug use: Not Currently Sexual activity: Not Currently Lifestyle Physical activity: Days per week: Not on file Minutes per session: Not on file Stress: Not on file Relationships Social connections: Talks on phone: Not on file Gets together: Not on file Attends jain service: Not on file Active member of [...] Concern Not on file Social History Narrative homeless REVIEW OF SYSTEMS: Review of Systems Constitutional: Negative for chills, fever and malaise/fatigue. HENT: Negative for hearing loss. Respiratory: Negative for cough and sputum production. Cardiovascular: Negative for chest pain. Gastrointestinal: Negative for constipation and diarrhea. Genitourinary: Negative for dysuria. Skin: Negative for itching and rash. Neurological: Negative for dizziness. Objective PHYSICAL EXAM: VITALS: BP 136/86 (BP Location: Right arm, Patient Position: Sitting) | Pulse 93 | Temp 98.4 F (36.9 C) (Tympanic) | Ht 5' 8.5" (1.74 m) | Wt 295 lb 6.4 oz (134 kg) | SpO2 92% | BMI 44.26 kg/m Body mass index is 44.26 kg/m. Physical Exam Vitals signs and nursing note reviewed. Constitutional: General: He is not in acute distress. Appearance: Normal appearance. He is obese. He is not ill-appearing, toxic- appearing or diaphoretic. HENT: Head: Normocephalic and atraumatic. Right Ear: Tympanic membrane normal. There is no impacted cerumen. Left Ear: Tympanic membrane normal. There is no impacted cerumen. Nose: Nose normal. No congestion or rhinorrhea. Mouth/Throat: Mouth: Mucous membranes are moist. Pharynx: Oropharynx is clear. No oropharyngeal exudate or posterior oropharyngeal erythema. Eyes: General: Right eye: No discharge. Left eye: No discharge. Extraocular Movements: Extraocular movements intact. Conjunctiva/sclera: Conjunctivae normal. Pupils: Pupils are equal, round, and reactive to light. Neck: Musculoskeletal: Normal range of motion and neck supple. No muscular tenderness. Vascular: No carotid bruit. Cardiovascular: Rate and Rhythm: Normal rate and regular rhythm. Pulses: Normal pulses. Heart sounds: Normal heart sounds. No murmur. No friction rub. No gallop. Pulmonary: Effort: Pulmonary effort is normal. Breath sounds: Normal breath sounds. No wheezing. Chest: Chest wall: No tenderness. Abdominal: General: Abdomen is flat. Palpations: Abdomen is soft. Skin: General: Skin is warm and dry. Neurological: General: No focal deficit present. Mental Status: He is alert and oriented to person, place, and time. Psychiatric: Mood and Affect: Mood normal. Behavior: Behavior normal. ASSESSMENT / IMPRESSION: 1. Alcoholism (HCC) Doing better with Revia than without. Ran out a couple of days ago and notes that his craving increased resulting in binge today. Discussed with his caregiver to ensure he takes his medication and theywill return in 3 weeks for another evaluation--having abstinence for at least 6 hours before the visit. - naltrexone (REVIA) 50 MG Oral Tab; Take 1 Tab by mouth DAILY. Dispense: 30 Tab; Refill: 0 2. Medication refill Completed as all medication appear to be working as indicated. - cetirizine (ZYRTEC) 10 MG Oral Tab; Take 1 Tab by mouth DAILY. Dispense: 30 Tab; Refill: 0 - naltrexone (REVIA) 50 MG Oral Tab; Take 1 Tab by mouth DAILY. Dispense: 30 Tab; Refill: 0 - foliC acid 1 MG Oral Tab; Take 1 Tab by mouth DAILY. Dispense: 30 Tab; Refill : 11 - pantoprazole (PROTONIX) 20 MG Oral Tab EC; Take 1 Tab by mouth DAILY. Dispense: 30 Tab; Refill: 5 - rivaroxaban (XARELTO) 20 MG Oral Tab; Take 1 Tab by mouth DAILY. Dispense: 30 Tab; Refill: 4 - thiamine (VITAMIN B1) 100 MG Oral Tab; Take 1 Tab by mouth DAILY. Dispense: 90 Tab; Refill: 1 3. Chronic deep vein thrombosis (DVT) of brachial vein of right upper extremity (HCC) Seen recently by MEMORANDUM STATEMENT CLERK with plan for follow up. Discussed with caregiver who agrees he will make appointment. - rivaroxaban (XARELTO) 20 MG Oral Tab; Take 1 Tab by mouth DAILY. Dispense: 30 Tab; Refill: 4 4. Bee sting reaction, accidental or unintentional, initial encounter Refill medication. - cetirizine (ZYRTEC) 10 MG Oral Tab; Take 1 Tab by mouth DAILY. Dispense: 30 Tab; Refill: 0 5. Alcohol abuse - naltrexone (REVIA) 50 MG Oral Tab; Take 1 Tab by mouth DAILY. Dispense: 30 Tab; Refill: 0 6. Alcohol use disorder, moderate, dependence (HCC) - thiamine (VITAMIN B1) 100 MG Oral Tab; Take 1 Tab by mouth DAILY. Dispense: 90 Tab; Refill: 1 Plan As above. Author: Kenneth Mckeon MD 06/28/2019 14:57 documented in this encounter Plan of Treatment Date Type Specialty Care Team Description 07/17/2019 Office Visit Family Practice Kenneth Mckeon MD [address] [place] [address] [phone] Health Maintenance Due Date Last Done Comments PNEUMOCOCCAL 0-64 YRS (1 of 1 1979 - PPSV23) HIV SCREENING 02/08/1988 LIPID DISORDER SCREENING 1991 INFLUENZA VACCINE (#1) 2019 DIABETES SCREENING 06/04/2020 06/04/2019, 01/10/2019 DEPRESSION SCREENING 06/17/2020 06/17/2019 HPV IMMUNIZATION SERIES Aged Out No longer eligible based on patient's age to complete this topic MENINGOCOCCAL VACCINE IMM Aged Out No longer eligible based on patient's age to complete this topic documented as of this encounter Results Not on filedocumented in this encounter Visit Diagnoses Diagnosis Alcoholism (HCC) - Primary Other and unspecified alcohol dependence, unspecified drinking behavior Medication refill Issue of repeat prescriptions Chronic deep vein thrombosis (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
--- OUTSIDE RECORDS SUMMARY | 2019-07-08 16:00 | XMS REPORT | Summary of Care ---
:1975 Demographics Address [address] [place] [address] Home Phone Preferred Language Armenian Marital Status Not or Yarsani Affiliation Unknown Race White Ethnic Group Not or Author Organization [facility] Address [address] [facility] [place] [address] Care Team Providers Name Role Phone Tommy Pope Primary Care Provider Reason for Referral MRI/CAT/PET Scan (Routine) Status Reason Specialty Diagnoses / Referred By Referred To Procedures Contact Contact Authorized Diagnoses History of pulmonary embolism Right leg swelling Sis Penaloza, Procedures VL LOWER EXTREMITY DUPLEX VEINS RIGHT DRIVER [address] [place] [address] Reason for Visit Reason Comments Foot Pain swelling in R foot, cream hauler recently called and would like to put a soft cast on. Pt doesn't understand Physical Therapy. Pain in R shoulder. Encounter Details Date Type Department Care Team Description 06/20/2019 Office Visit [facility] Sis Penaloza, History of pulmonary embolism (Primary Dx); Practice DRIVER Right leg swelling; [address] [facility] Edema of right lower extremity; [place], [place] [id number] [place] [address] Bee sting reaction, accidental or unintentional, initial encounter; [phone] Right arm pain Allergies No Known Allergiesdocumented as of this encounter (statuses as of 06/20/2019) Medications Medication Sig Dispensed Refills Start Date End Date Status thiamine (VITAMIN B1) Take 1 Tab by 90 Tab 1 01/10/2019 Active 100 MG Oral mouth DAILY. TabIndications: Alcohol use disorder, moderate, dependence (HCC) pantoprazole (PROTONIX) Take 20 mg by 0 Active 20 MG Oral Tab EC mouth DAILY. naltrexone (REVIA) 50 Take 1 Tab by 30 Tab 0 06/04/2019 Active MG Oral TabIndications: mouth DAILY. Alcohol abuse foliC acid 1 MG Oral Take 1 Tab by 30 Tab 11 06/17/2019 Active Tab mouth DAILY. rivaroxaban (XARELTO) Take 1 Tab by 30 Tab 4 06/17/2019 Active 20 MG Oral Tab mouth DAILY. Elastic Bandages & 1 Appl by Does 1 Each 0 06/20/2019 Active Supports (MEDICAL not apply route COMPRESSION SOCKS) Does DAILY. not apply MiscIndications: Edema of right lower extremity predniSONE (DELTASONE) Take 1 Tab by 3 Tab 0 06/20/2019 06/23/2019 Active 20 MG Oral mouth DAILY for TabIndications: Bee 3 days. sting reaction, accidental or unintentional, initial encounter cetirizine (ZYRTEC) 10 Take 1 Tab by 30 Tab 0 06/20/2019 Active MG Oral TabIndications: mouth DAILY. Bee sting reaction, accidental or unintentional, initial encounter documented as of this encounter (statuses as of 06/20/2019) Active Problems Problem Noted Date History of pulmonary embolism 06/17/2019 Alcoholism 06/17/2019 Gastroesophageal reflux disease without esophagitis 06/17/2019 Extreme obesity 06/17/2019 documented as of this encounter (statuses as of 06/20/2019) Social History Tobacco Use Types Packs/Day Years [...] Sign Reading Time Taken Comments Blood Pressure 130/82 06/20/2019 2:58 PM EDT Pulse 79 06/20/2019 2:58 PM EDT Temperature 37.4 06/20/2019 2:58 PM EDT C (99.3 F) Respiratory Rate - - Oxygen Saturation 92% 06/20/2019 2:58 PM EDT Inhaled Oxygen Concentration - - Weight 132.9 kg (293 lb) 06/20/2019 2:58 PM EDT Height 174 cm (5' 8.5") 06/20/2019 2:58 PM EDT Body Mass Index 43.9 06/20/2019 2:58 PM EDT documented in this encounter Patient Instructions Patient InstructionsSis Penaloza NP - 06/20/2019 3:00 PM EDTLeg - Use the compression stockings - these will help decrease the swelling. Elevate the leg whenever possible. Low salt diet. Arm - Use tylenol for the pain in your arm. Rest the arm as much as you can. Cold packs and heating pads can help also. Bee Stings - cold packs, prednisone 20mg daily for 3 days, and zyrtec once daily for one week. Appointment with Dr. Pope is June 25 - keep this appointment. documented in this encounter Progress Notes Sis Penaloza NP - 06/20/2019 3:00 PM EDT PATIENT: Andreas Tran : 1975 DATE OF SERVICE: 06/20/2019 CHIEF COMPLAINT: Chief Complaint Patient presents with Foot Pain swelling in R foot, cream hauler recently called and would like to put a soft cast on. Pt doesn't understand Physical Therapy. Pain in R shoulder. Subjective HISTORY OF PRESENT ILLNESS: Andreas Tran is a 44-y.o. male. HPI Woke up this morning with pain and swelling in back of the right upper arm, painful to lift arm up -no shoulder pain. No known injury. Stung by a wasp yesterday on abdomen 3 times, now redness and swelling in area. Lower right abdomen. No chest pain, palpations, throat swelling or shortness of breath . Swelling to right leg a few days ago, has come down somewhat. Redness also. He had a DVT in the right leg with subsequent PE in the beginning of May. No chest pain or shortness of breath. He is taking the xarelto 20mg every day. Not forgotten any doses. He is taking the naltrexone, he is drinking less - now 2-3 cans of beer depending on money (24 oz cans each). He used to drink these fast, now he sips them takes 2-3 hours. No past medical history on file. No family history on file. Current Outpatient Medications Medication Sig cetirizine (ZYRTEC) [...] EC Take 20 mg by mouth DAILY. predniSONE (DELTASONE) 20 MG Oral Tab Take 1 Tab by mouth DAILY for 3 days. rivaroxaban (XARELTO) 20 MG Oral Tab Take [...] file Gets together: Not on file Attends confucianist service: Not on file Active member of [...] Not on file Social History Narrative homeless Over the last 2 weeks, have you been feeling down, depressed, anxious, or hopeless?: 0 Over the past 2 weeks, have you felt little interest or pleasure in doing things ?: 0 REVIEW OF SYSTEMS: Review of Systems Constitutional: Negative for chills, fever and malaise/fatigue. Respiratory: Negative for cough and shortness of breath. Cardiovascular: Positive for leg swelling (RLE). Negative for chest pain and palpitations. Gastrointestinal: Negative for abdominal pain. Musculoskeletal: Positive for myalgias (right arm). Negative for back pain, falls and joint pain. Skin: Positive for rash (bee sting abd). Neurological: Negative for tingling and sensory change. Psychiatric/Behavioral: Positive for substance abuse (etoh). Objective PHYSICAL EXAM: VITALS: BP 130/82 (BP Location: Left arm, Patient Position: Sitting) | Pulse 79 | Temp 99.3 F(37.4 C) (Tympanic) | Ht 5' 8.5" (1.74 m) | Wt 293 lb (132.9 kg) | SpO2 92% | BMI 43.90 kg/m Body mass index is 43.9 kg/m . Physical Exam Vitals signs and nursing note reviewed. Constitutional: General: He is not in acute distress. Appearance: Normal appearance. He is well-developed. Cardiovascular: Rate and Rhythm: Normal rate and regular rhythm. Heart sounds: Normal heart sounds. No murmur. No friction rub. No gallop. Pulmonary: Effort: Pulmonary effort is normal. No respiratory distress. Breath sounds: Normal breath sounds. Abdominal: Comments: Redness and swelling around areas of sting Musculoskeletal: Right upper arm: He exhibits tenderness (dorsal aspect upper arm). He exhibits no bony tenderness, no swelling, no edema and no deformity. Right lower le+ Pitting Edema present. Left lower leg: No edema. Neurological: Mental Status: He is alert. Psychiatric: Mood and Affect: Mood and affect normal. Speech: Speech normal. Behavior: Behavior normal. Behavior is cooperative. ASSESSMENT / IMPRESSION: ICD-9-CM ICD-10-CM 1. History of pulmonary embolism V12.55 Z86.711 VL LOWER EXTREMITY DUPLEX VEINS RIGHT 2. Right leg swelling 729.81 M79.89 VL LOWER EXTREMITY DUPLEX VEINS RIGHT 3. Edema of right lower extremity 782.3 R60.0 Elastic Bandages & Supports ( MEDICAL COMPRESSION SOCKS) Does not apply Misc 4. Bee sting reaction, accidental or unintentional, initial encounter 989.5 T63.441A predniSONE (DELTASONE) 20 MG Oral Tab E905.3 cetirizine (ZYRTEC) 10 MG Oral Tab 5. Right arm pain 729.5 M79.601 Plan 1. History of pulmonary embolism - VL LOWER EXTREMITY DUPLEX VEINS RIGHT; Future - Negative for DVT 2. Right leg swelling - VL LOWER EXTREMITY DUPLEX VEINS RIGHT; Future - Negative DVT 3. Edema of right lower extremity He has not been using the compression stockings as previously directed - they were uncomfortable. Discussed reasons why these were recommended and reiterated the importance. He did not realize they would help with the swelling. New order sent to [facility] and he will use them this time. -He has f/u with Dr. Pope on 06.25 - Elastic Bandages & Supports (MEDICAL COMPRESSION SOCKS) Does not apply Misc; 1 Appl by Does not apply route DAILY. Dispense: 1 Each; Refill: 0 4. Bee sting reaction, accidental or unintentional, initial encounter - predniSONE (DELTASONE) 20 MG Oral Tab; Take 1 Tab by mouth DAILY for 3 days. Dispense: 3 Tab; Refill: 0 - cetirizine (ZYRTEC) 10 MG Oral Tab; Take 1 Tab by mouth DAILY. Dispense: 30 Tab; Refill: 0 5. Right arm pain No dvt per us tech, likely musculoskeletal. Recommened RICE, and tylenol. Can f/u on this with next week if needed. Leg - Use the compression stockings - these will help decrease the swelling. Elevate the leg whenever possible. Low salt diet. Arm - Use tylenol for the pain in your arm. Rest the arm as much as you can. Cold packs and heating pads can help also. Bee Stings - cold packs, prednisone 20mg daily for 3 days, and zyrtec once daily for one week. Appointment with Dr. Pope is June 25 - keep this appointment. Author: Sis Penaloza NP 06/20/2019 17:10 documented in this encounter Plan of Treatment Date Type Specialty Care Team Description 06/25/2019 Office Visit Family Practice Tommy Pope, [address] [place] [address] [phone] Name Type Priority Associated Diagnoses Date/Time VL LOWER EXTREMITY Imaging Routine History of pulmonary 06/20/2019 3:53 PM DUPLEX VEINS RIGHT embolism EDT Right leg swelling Health Maintenance Due Date Last Done Comments [...] filedocumented in this encounter Visit Diagnoses Diagnosis History of pulmonary embolism - Primary Personal history of pulmonary embolism Right leg swelling Edema of right lower extremity Edema Bee sting reaction, accidental or unintentional, initial encounter Right arm pain Pain in limb documented in this encounter Insurance Payer Benefit Plan / Subscriber ID Effective Dates Phone Address Type Group [employer] [facility] xxxxxxxxxxx 2018-Present Sixto [address] [place] [id number] documented as of this encounter
--- OUTSIDE RECORDS SUMMARY | 2019-07-08 16:00 | XMS REPORT | Summary of Care ---
:1975 Author Organization [facility] Address [address] [facility] [place] [address] Care Team Providers Name Role Phone Eduardo Popemanuel Donato Primary Care Provider Reason for Visit Reason Comments Medication Check Patient is taking xarelto twice a day but is not sure if it is daily. He states he has been told different things. Muscle Pain Patient states the right side of rib cage muscle hurt when he takes a deep breathe. Encounter Details Date Type Department Care Team Description 06/17/2019 Office Visit [facility] Rey Carbajal, Extreme obesity (Primary Dx); Medicine Alcoholism ([facility]); [address] [facility] History of pulmonary embolism; [place] [address] Alcohol withdrawal syndrome without complication ([facility]); [phone] Homelessness; Right-sided chest pain Allergies No Known Allergiesdocumented as of this encounter (statuses as of 06/17/2019) Medications Medication Sig Dispensed Refills Start Date End Date Status thiamine (VITAMIN Take 1 Tab 90 Tab 1 01/10/2019 Active B1) 100 MG Oral by mouth TabIndications: DAILY. Alcohol use disorder, moderate, dependence ([facility]) pantoprazole Take 20 mg 0 Active (PROTONIX) 20 MG by mouth Oral Tab EC DAILY. naltrexone (REVIA) Take 1 Tab 30 Tab 0 06/04/2019 Active 50 MG Oral by mouth TabIndications: DAILY. Alcohol abuse foliC acid 1 MG Take 1 Tab 30 Tab 11 06/17/2019 Active Oral Tab by mouth DAILY. rivaroxaban Take 1 Tab 30 Tab 4 06/17/2019 Active (XARELTO) 20 MG by mouth Oral Tab DAILY. rivaroxaban Take by 0 06/17/2019 Discontinued (XARELTO) 10 MG mouth (Dose Adjustment) Oral Tab DAILY. documented as of this encounter (statuses as of 06/17/2019) Active Problems Problem Noted Date History of pulmonary embolism 06/17/2019 Alcoholism 06/17/2019 Gastroesophageal reflux disease without esophagitis 06/17/2019 Extreme obesity 06/17/2019 documented as of this encounter (statuses as of 06/17/2019) Social History Tobacco Use Types Packs/Day Years [...] Sign Reading Time Taken Comments Blood Pressure 132/74 06/17/2019 11:42 AM EDT Pulse 74 06/17/2019 11:42 AM EDT Temperature - - Respiratory Rate - - Oxygen Saturation 96% 06/17/2019 11:59 AM EDT Inhaled Oxygen Concentration - - Weight 132 kg (291 lb) 06/17/2019 11:42 AM EDT Height 174 cm (5' 8.5") 06/17/2019 11:42 AM EDT Body Mass Index 43.6 06/17/2019 11:42 AM EDT documented in this encounter Patient Instructions Patient InstructionsRey Carbajal MD - 06/17/2019 11:40 AM EDTChest x-ray today xarelto is 20 mg once daily Continue the naltrexone you need to give up alcohol for good You are going through alcohol withdrawal Follow up Tommy Pope MD 1-2 weeks documented in this encounter Progress Notes Rey Carbajal MD - 06/17/2019 11:40 AM EDT PATIENT: Andreas Tran : 1975 DATE OF SERVICE: 06/17/2019 CHIEF COMPLAINT: Chief Complaint Patient presents with Medication Check Patient is taking xarelto twice a day but is not sure if it is daily. He states he has been told different things. Muscle Pain Patient states the right side of rib cage muscle hurt when he takes a deep breathe. Subjective HISTORY OF PRESENT ILLNESS: Andreas Tran is a 44-y.o. male. HPI Here for right sided chest pain it is a 5/10 right lower rib ache worse with position changes or movement no cough No new shortness of breath no central chest pain he has history of pulmonary embolism and deep vein thrombosis and he is on xarelto now 20 mg once daily after initial twice daily Doing Denies new respiratory symptoms like cough he has persistent right lower extremity swelling since deep vein thrombosis He is on revia for several weeks for alcohol abuse and he has cut down from 10- 20 beers per day to one or two 16 ounce cans per day He declines any other alcohol intervention like counseling or alcoholics anonymous He denies tobacco use or other drug use Patient Active Problem List Diagnosis History of pulmonary embolism Alcoholism (HCC) Gastroesophageal reflux disease without esophagitis Extreme obesity Current Outpatient Medications Medication Sig foliC acid 1 MG Oral Tab Take [...] file Gets together: Not on file Attends sabianism service: Not on file Active member of [...] or pleasure in doing things ?: 0 ROS no nausea and vomitting Positive for shakes and chills no fevers Objective PHYSICAL EXAM: VITALS: BP 132/74 | Pulse 74 | Ht 5' 8.5" (1.74 m) | Wt 291 lb (132 kg) | SpO2 96% | BMI 43.60kg/m Body mass index is 43.6 kg/m. Physical Exam Chest is clear, no wheezing or rales. Normal symmetric air entry throughout both lung cl[place]. No chest wall deformities or tenderness. Right sided intercostal muscle tenderness no chest wall rash S1 and S2 normal, no murmurs, clicks, gallops or rubs. Regular rate and rhythm. Bilateral Hand tremor fine He has some diffuse muscle twitching throughout No focal neurologic deficits Mental status exam; he is alert, orient to time, person and place. Normal thought content, speech, affect, mood and dress are noted. Chest x-ray negative ASSESSMENT / IMPRESSION: ICD-9-CM ICD-10-CM 1. Extreme obesity 278.00 E66.8 2. Alcoholism (HCC) 303.90 F10.20 3. History of pulmonary embolism V12.55 Z86.711 4. Alcohol withdrawal syndrome without complication (HCC) he has mild alcohol withdrawal I added folic acid and encouraged continued use of Revia and follow up primary care provider consider benzo lorazepam or clonazepam but he is still drinking and this would be high risk 291.81 F10.230 5. Homelessness V60.0 Z59.0 6. Right-sided chest pain reassurance 786.50 R07.9 XR CHEST 2 VIEW PA AND LATERAL (STANDARD) Patient Instructions Chest x-ray today xarelto is 20 mg once daily Continue the naltrexone you need to give up alcohol for good You are going through alcohol withdrawal Follow up Tommy Pope MD 1-2 weeks Rey Carbajal MD 06/17/2019 16:30 documented in this encounter Plan of Treatment Date Type Specialty Care Team Description 06/25/2019 Office Visit Family Practice Tommy Pope, DO [facility] [place] [address] [phone] Health Maintenance Due Date Last Done Comments [...] topic documented as of this encounter Results XR CHEST 2 VIEW PA AND LATERAL (STANDARD) (06/17/2019 12:15 PM EDT) Specimen Impressions Performed At 1. No acute cardiopulmonary disease is seen. Hypoventilation. Urgency: Routine. This is a routine medical imaging report. Recommendation: No specific imaging recommendation. Signed by Luis Chavez MD, A, FCPS on 06/17/2019 12:36 PM Narrative Performed At Procedure(s): XR CHEST 2 VIEW PA AND LATERAL (STANDARD) Date of service: 06/17/2019 12:06 PM Provided clinical information: 44 years, Male, "r sided chest pain hx of PE on xarelto" Procedure and materials: Standard protocol. Procedure: CHEST 2 VIEWS Technique: PA and lateral views of the chest were acquired. Comparison: None Findings: Hypoventilation. There is no confluent pulmonary parenchymal opacity seen. Cardioaortic silhouette appears unremarkable. There is normal pulmonary vascularity. The martinez are normal. No pleural effusion is seen. No pneumothorax is seen. Trachea midline. Mild endplate remodeling is seen of thoracic spine. No acute bony abnormality is seen. Procedure Note Interface, Rad Results - 06/17/2019 12:38 PM EDT Procedure(s): XR CHEST 2 VIEW PA AND LATERAL (STANDARD) Date of service: 06/17/2019 12:06 PM Provided clinical information: 44 years, Male, "r sided chest pain hx of PE on xarelto" Procedure and materials: Standard protocol. Procedure: CHEST 2 VIEWS Technique: PA and lateral views of the chest were acquired. Comparison: None Findings: Hypoventilation. There is no confluent pulmonary parenchymal opacity seen. Cardioaortic silhouette appears unremarkable. There is normal pulmonary vascularity. The martinez are normal. No pleural effusion is seen. No pneumothorax is seen. Trachea midline. Mild endplate remodeling is seen of thoracic spine. No acute bony abnormality is seen. IMPRESSION 1. No acute cardiopulmonary disease is seen. Hypoventilation. Urgency: Routine. This is a routine medical imaging report. Recommendation: No specific imaging recommendation. Signed by Luis Chavez MD, A, FCPS on 06/17/2019 12:36 PM documented in this encounter Visit Diagnoses Diagnosis Extreme obesity - Primary Morbid obesity Alcoholism (HCC) Other and unspecified alcohol dependence, unspecified drinking behavior History of pulmonary embolism Personal history of pulmonary embolism Alcohol withdrawal syndrome without complication (HCC) Homelessness Lack of housing Right-sided chest pain documented in this encounter Insurance Payer Benefit Plan / Subscriber ID Effective Dates Phone Address Type Group [employer] [facility] xxxxxxxxxxx 2018-Present Sixto Guarantor Name Account Type Relation to Date of Phone Billing Patient Address Andreas Tran Personal/Family Self 1975 [address] [address] documented as of this encounter
--- OUTSIDE RECORDS SUMMARY | 2019-07-08 16:00 | XMS REPORT | Summary of Care ---
:1975 Demographics Address [address] [place] [address] Home Phone Preferred Language [place] Marital Status Not or Mormonism Affiliation Unknown Race White Ethnic Group Not or Author Organization [facility] Address [address] [facility] [place] [address] Care Team Providers Name Role Phone Tommy Pope DO Primary Care Provider Reason for Visit Reason Comments Follow Up here for follow up; continues with left hand knuckles swelling; chest feels tight still. Encounter Details Date Type Department Care Team Description 06/04/2019 Office Visit [facility] [place] Tommy Pope DO Other pulmonary embolism without acute cor pulmonale, unspecified chronicity ( HCC) (Primary Dx); Practice [address] [facility] Alcohol abuse; [address] Gastroesophageal reflux disease, esophagitis presence not specified; [place] [address] [place] [address] Right hand pain [phone] Allergies No Known Allergiesdocumented as of this encounter (statuses as of 06/04/2019) Medications Medication Sig Dispensed Refills Start Date End Date Status thiamine (VITAMIN B1) Take 1 Tab by 90 Tab 1 01/10/2019 Active 100 MG Oral mouth DAILY. TabIndications: Alcohol use disorder, moderate, dependence (HCC) rivaroxaban (XARELTO) 10 Take by mouth 0 Active MG Oral Tab DAILY. pantoprazole (PROTONIX) Take 20 mg by 0 Active 20 MG Oral Tab EC mouth DAILY. naltrexone (REVIA) 50 MG Take 1 Tab by 30 Tab 0 06/04/2019 Active Oral TabIndications: mouth DAILY. Alcohol abuse documented as of this encounter (statuses as of 06/04/2019) Active Problems No known active problemsdocumented as [...] Sign Reading Time Taken Comments Blood Pressure 138/68 06/04/2019 3:19 PM EDT Pulse 91 06/04/2019 3:19 PM EDT Temperature - - Respiratory Rate - - Oxygen Saturation 95% 06/04/2019 3:19 PM EDT Inhaled Oxygen Concentration - - Weight 135.4 kg (298 lb 8 oz) 06/04/2019 3:19 PM EDT Height 174 cm (5' 8.5") 06/04/2019 3:19 PM EDT Body Mass Index 44.73 06/04/2019 3:19 PM EDT documented in this encounter Patient Instructions Patient InstructionsTommy Pope DO - 06/04/2019 3:20 PM EDTContinue current medications Start naltrexone for alcohol Continue other medications Do labs and xray today for right hand documented in this encounter Progress Notes Tommy Pope DO - 06/04/2019 3:20 PM EDT PATIENT: Andreas Tran : 1975 DATE OF SERVICE: 06/04/2019 CHIEF COMPLAINT: Chief Complaint Patient presents with Follow Up here for follow up; continues with left hand knuckles swelling; chest feels tight still. Subjective HISTORY OF PRESENT ILLNESS: Andreas Tran is a 44-y.o. male. HPI Follow up from hospital PE diagnosed. Started on xarelto and aware of taper from 15 mg bid to 20 mg daily No blood from anywhere No black stools Pleuritic chest pain gone Alcohol abuse: Continues Homeless too Drinking only beer 1-10 a day depending on how much money he can gather Declines counseling After a lot of counseling agreed to try naltrexone Right hand pain: Last few days Mildly swollen No warmness or redness Pain elena activity mostly and at MCP joints mostly GERD: well controlled on PPI started by hospital History reviewed. No pertinent past medical history. History reviewed. No pertinent family history. Current Outpatient Medications Medication Sig naltrexone (REVIA) 50 MG Oral Tab Take 1 Tab by mouth DAILY. pantoprazole (PROTONIX) 20 MG Oral Tab EC Take 20 mg by mouth DAILY. rivaroxaban (XARELTO) 10 MG Oral Tab Take by mouth DAILY. thiamine (VITAMIN B1) 100 [...] file Gets together: Not on file Attends adventist service: Not on file Active member of [...] Review of Systems Constitutional: Negative for chills, diaphoresis and fever. Respiratory: Negative for cough. Cardiovascular: Negative for palpitations. Gastrointestinal: Negative for abdominal pain. Neurological: Negative for dizziness. Objective PHYSICAL EXAM: VITALS: BP 138/68 (BP Location: Left arm, Patient Position: Sitting) | Pulse 91 | Ht 5' 8.5" (1.74 m) | Wt 298 lb 8 oz (135.4 kg) | SpO2 95% | BMI 44.73 kg/m Body mass index is 44.73 kg/m. Physical Exam Constitutional: He appears well-developed and well-nourished. HENT: Head: Normocephalic and atraumatic. Mouth/Throat: Oropharynx is clear and moist. No oropharyngeal exudate. Eyes: Conjunctivae are normal. Right eye exhibits no discharge. Left eye exhibits no discharge. No scleral icterus. Cardiovascular: Normal rate and regular rhythm. Pulmonary/Chest: Effort normal and breath sounds normal. Musculoskeletal: Right hand: no active tenosynovitis Pain at MCP of all 4 fingers Minimal swelling of hand noted too No warmness or redness Skin: He is not diaphoretic. ASSESSMENT / IMPRESSION: ICD-9-CM ICD-10-CM 1. Other pulmonary embolism without acute cor pulmonale, unspecified chronicity (HCC) 415.19 I26.99 2. Alcohol abuse 305.00 F10.10 naltrexone (REVIA) 50 MG Oral Tab 3. Gastroesophageal reflux disease, esophagitis presence not specified 530.81 K21.9 4. Right hand pain 729.5 M79.641 URIC ACID CBC WITH DIFFERENTIAL COMPREHENSIVE METABOLIC PANEL XR HAND MIN 3 VIEWS RIGHT (STANDARD) COMPREHENSIVE METABOLIC PANEL CBC WITH DIFFERENTIAL URIC ACID Plan PE: unprovoked. He is a very difficult patient. He would need work up by hematology to decide duration of AC but trying to do few things at a time with him so he doesn't leave medical care. Next time will bring up hematology referral and cancer screenings in regards to PE. For now continue xarelto. Told him need to stop drinking as one not good for overall health but especially with xarelto he is fall risk with excess etoh. He agreed to trying naltrexone. Right hand pain: Doubt gout. But get labs and xray. Reassess at next visit Told him to call me for any issues rather than going ER Patient Instructions Continue current medications Start naltrexone for alcohol Continue other medications Do labs and xray today for right hand Author: Tommy Pope DO 06/04/2019 16:26 documented in this encounter Plan of Treatment Date Type Specialty Care Team Description 06/25/2019 Office Visit Family Practice Tommy Pope DO [facility] [place] [address] [phone] Name Type Priority Associated Diagnoses Date/Time URIC ACID Lab Routine Right hand pain 06/04/2019 4:06 PM EDT CBC WITH DIFFERENTIAL Lab Routine Right hand pain 06/04/2019 4:06 PM EDT COMPREHENSIVE METABOLIC Lab Routine Right hand pain 06/04/2019 4:06 PM PANEL EDT XR HAND MIN 3 VIEWS RIGHT Imaging Routine Right hand pain 06/04/2019 3:58 PM (STANDARD) EDT Name Type Priority Associated Diagnoses Order Schedule URIC ACID Lab Routine Right hand pain Expected: 06/04/2019 (Approximate), Expires: 06/04/2020 CBC WITH DIFFERENTIAL Lab Routine Right hand pain Expected: 06/04/2019 (Approximate), Expires: 06/04/2020 COMPREHENSIVE METABOLIC Lab Routine Right hand pain Expected: 06/04/2019 PANEL (Approximate), Expires: 06/04/2020 XR HAND MIN 3 VIEWS RIGHT Imaging Routine Right hand pain Expected: 2018, (STANDARD) Expires: 06/03/2020 Health Maintenance Due Date Last Done Comments PNEUMOCOCCAL 0-64 YRS (1 of - 1979 PPSV23) DEPRESSION SCREENING 1985 HIV SCREENING 02/08/1988 LIPID [...] filedocumented in this encounter Visit Diagnoses Diagnosis Other pulmonary embolism without acute cor pulmonale, unspecified chronicity ( HCC) - Primary Alcohol abuse Alcohol abuse, unspecified Gastroesophageal reflux disease, esophagitis presence not specified Right hand pain Pain in limb documented in this encounter Insurance Payer Benefit Plan / Subscriber ID Effective Dates Phone Address Type Group [facility] xxxxxxxxxxx 2018-Present [place] documented as of this encounter
[2019-07-08 16:14] VITALS: BP 116/74
--- NOTE | 2019-07-08 17:00 | UC ---
Lower Extremity/Ankle HPI - HPI Summary HPI Summary: 44-year-old male comes in with a chief complaint of left foot pain. Patient's poor historian but it sounds like with a couple days ago he was raking leaves with a new pair of boots on. He had onset of foot pain on the left side of the dorsum. Patient denies any specific trauma other than the rubbing on his foot. Denies any concern of broken bones. Patient does see a supervising law enforcement analyst and a pulling machine operator. He has a history of pulmonary embolus and he is on Xarelto. He denies having diabetes. - History of Current Complaint Chief Complaint: UCWounds Stated Complaint: L FOOT INJURY Time Seen by Provider: 07/08/19 16:33 Pain Intensity: 7 - Allergies/Home Medications Allergies/Adverse Reactions: Allergies Allergy/AdvReac Type Severity Reaction Status Date / Time No Known Allergies Allergy Verified 07/08/19 16:14 Home Medications: Home Medications A Pill To Stop Him From Etoh 1 tab PO DAILY 07/08/19 [History Confirmed 07/08/19 ] Acetaminophen [Pain Relief] 1,000 mg PO ONCE PRN 07/08/19 [History Confirmed ] PMH/Surg Hx/FS Hx/Imm Hx Previously Healthy: Yes - alcoholism Respiratory History: Pulmonary Embolism Other History Of: Anticoagulant Therapy - Xarelto 20mg daily - pt denies today - Surgical History Surgical History: Yes Surgery Procedure, Year, and Place: knee surgery as a child. wrist surgery, hand surgeries - Family History Known Family History: Positive: Diabetes, Other - alcohol abuse - father - Social History Alcohol Use: Daily Alcohol Amount: 3-4 daily beers Substance Use Type: None Smoking Status (MU): Former Smoker Household Exposure Type: Cigarettes - Immunization History Most Recent Influenza Vaccination: may 2016 Most Recent Tetanus Shot: unsure Most Recent Pneumonia Vaccination: none Review of Systems All Other Systems Reviewed And Are Negative: Yes Constitutional: Positive: Negative Skin: Positive: Other - see hpi Eyes: Positive: Negative ENT: Positive: Negative Respiratory: Positive: Negative Cardiovascular: Positive: Negative Gastrointestinal: Positive: Negative Motor: Positive: Negative Neurovascular: Positive: Negative Musculoskeletal: Positive: Negative Neurological: Positive: Negative Psychological: Positive: Negative Is Patient Immunocompromised?: No Physical Exam Triage Information Reviewed: Yes Appearance: Well-Appearing, Well-Nourished, Pain Distress - mild with left foot exam Vital Signs: Initial Vital Signs Temp 99 F 07/08/19 16:06 Pulse 97 07/08/19 16:06 Resp 18 07/08/19 16:06 BP 116/74 07/08/19 16:06 Pulse Ox 94 07/08/19 16:06 Vital Signs Reviewed: Yes Eye Exam: Normal Eyes: Positive: Conjunctiva Clear Neck: Positive: Supple Respiratory: Positive: No respiratory distress Musculoskeletal: Positive: Strength Intact Neurological: Positive: Alert Psychological: Positive: Age Appropriate Behavior Skin: Positive: Other - The distal dorsum of the right foot has a diffuse abrasion. There is some blood seeping from various locations. No pus no foul smell. Patient is able to move his toes. There is ecchymosis in all of the toes capillary refill is normal. Patient reports normal sensation on palpation. Lower Extremity Course/Dx - Course Course Of Treatment: Patient has normal capillary refill and he reports normal sensation in his left foot. Wound was cleaned by nursing and dressed by nursing. The person the patient's here with reports that she can get the patient seen by his supervising law enforcement analyst by tomorrow. Patient was placed in a postop shoe by nursing and he is neurovascularly intact after placement of the postoperative. I let them know that if this did not improve or got worse he should go the emergency department. - Differential Dx/Diagnosis Provider Diagnosis: Contusion of foot including toes, Abrasion of foot, left Discharge ED - Sign-Out/Discharge Documenting (check all that apply): Patient Departure All imaging exams completed and their final reports reviewed: No Studies - Discharge Plan Condition: Stable Disposition: HOME Prescriptions: Cephalexin CAP* [Keflex CAP*] 500 mg PO TID #30 cap Mupirocin 1 applic TOPICAL BID #22 gm Patient Education Materials: Foot Contusion (ED), Abrasion (ED) Referrals: Dionisio Hinson DPM [Doctor of Podiatric Medicine] - Additional Instructions: FOLLOW UP WITH PODIATRY TOMORROW, 07/09/19. GO TO THE EMERGENCY DEPARTMENT IF YOUR CONDITION WORSENS OR ANY QUESTIONS OR CONCERNS. - Billing Disposition and Condition Condition: STABLE Disposition: Home
== END 2019-07-08 17:28 | disposition home or self-care (01) ==
LOC: UCEAST 15:49
DX: S90.122A Contusion of left lesser toe(s) without damage to nail, initial encounter (principal); I26.99 Other pulmonary embolism without acute cor pulmonale; Z79.01 Long term (current) use of anticoagulants; Z87.891 Personal history of nicotine dependence; X58.XXXA Exposure to other specified factors, initial encounter; Y92.9 Unspecified place or not applicable
CPT/HCPCS: 99213; G0463